=== PATIENT | female | born 1950 | race Caucasian/White ===

== ENCOUNTER → 2018-02-18 14:52 | Outpatient (CLI) | payer MEDICARE, SELFPAY ==
--- NOTE | 2018-02-18 14:59 | XR_ITS ---
XR foot RT min 3V HISTORY: ITS.REASON: foot pain ORDERING PHYSICIAN: Diego López PATIENT AGE: 67 years COMPARISON: None FINDINGS: No fracture or dislocation. No lytic or blastic change. There is normal mineralization.. The joint spaces are well-preserved. There are mild osteoarthritic changes of the first metatarsophalangeal joint. There is normal alignment. 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
== END ==
PROVIDERS: PCP Emergency Medicine; Visit Provider Nurse Practitioner Family
DX: M79.671 Pain in right foot (principal)
CPT/HCPCS: 73630

== ENCOUNTER → 2018-06-01 07:46 | Outpatient (CLI) | payer MEDICARE, SELFPAY ==
[2018-06-01 08:56] LABS: Alanine Aminotransferase 56 U/L (12-78); Albumin Level 3.4 gm/dL (3.4-5.0); Alkaline Phosphatase 111 U/L (46-116); Aspartate Amino Transferase 34 U/L (15-37); Bilirubin,Direct 0.1 mg/dL (0.0-0.2); Bilirubin,Indirect 0.2 mg/dL (0.0-0.9); Bilirubin,Total 0.3 mg/dL (0.2-1.0); Cholesterol 145 mg/dL (140-200); HDL Cholesterol 36 mg/dL (29-89); LDL Cholesterol 86 mg/dL (0-130); Total Protein,Serum 7.2 gm/dL (6.4-8.2); Triglycerides 116 mg/dL (30-200); VLDL Cholesterol 23 mg/dL (0-40)
== END ==
PROVIDERS: Visit Provider Physician Assistant
DX: E78.2 Mixed hyperlipidemia (principal); I10 Essential (primary) hypertension; I25.10 Atherosclerotic heart disease of native coronary artery without angina pectoris
CPT/HCPCS: 36415; 80061; 80076

== ENCOUNTER → 2020-03-13 18:10 | Outpatient (CLI) | payer MEDICARE, SELFPAY | PROVIDERS: PCP Nurse Practitioner Family; Visit Provider Nurse Practitioner Family | DX: Z20.828 Contact with and (suspected) exposure to other viral communicable diseases (principal); U07.1 COVID-19 | CPT/HCPCS: U0003 ==

== ENCOUNTER → 2020-04-11 09:29 | Outpatient (CLI) | payer MEDICARE, SELFPAY ==
[2020-04-11 11:49] LABS: Bilirubin,Unconjugated 0.4 mg/dL (0.0-1.1)
[2020-04-11 11:50] LABS: Alanine Aminotransferase 20 U/L (12-78); Albumin Level 4.2 g/dl (3.5-5.0); Alkaline Phosphatase 102 U/L (38-126); Aspartate Amino Transferase 27 U/L (14-36); Bilirubin,Direct 0.2 mg/dl (0.0-0.4); Bilirubin,Indirect 0.4 mg/dL (0.0-0.9); Bilirubin,Total 0.6 mg/dl (0.2-1.3); Chol/HDL Ratio 3.8 (1-3.5); Cholesterol 158 mg/dl (140-200); HDL Cholesterol 42 mg/dl (40-60); Triglycerides 184 mg/dl (30-150); VLDL Cholesterol 37 mg/dL (0-40)
[2020-04-11 12:01] LABS: Direct LDL Cholesterol 71.27 mg/dL (100-129)
== END ==
PROVIDERS: Visit Provider Internal Medicine
DX: E78.2 Mixed hyperlipidemia (principal); I10 Essential (primary) hypertension; I25.10 Atherosclerotic heart disease of native coronary artery without angina pectoris
CPT/HCPCS: 36415; 80061; 80076

== ENCOUNTER → 2021-01-04 19:16 | Outpatient (CLI) | payer MEDICARE, SELFPAY | PROVIDERS: Visit Provider Nurse Practitioner Family | DX: J02.9 Acute pharyngitis, unspecified (principal); R52 Pain, unspecified; Z20.822 Contact with and (suspected) exposure to COVID-19 | CPT/HCPCS: C9803; U0003; U0005 ==

== ENCOUNTER → 2021-10-01 07:34 | Outpatient (CLI) | payer MEDICARE, SELFPAY ==
[2021-10-01 08:27] LABS: Alanine Aminotransferase 20 U/L (12-78); Albumin Level 3.8 g/dl (3.5-5.0); Alkaline Phosphatase 99 U/L (38-126); Aspartate Amino Transferase 28 U/L (14-36); Bilirubin,Indirect 0.4 mg/dL (0.0-0.9); Bilirubin,Total 0.4 mg/dl (0.2-1.3); Bilirubin,Unconjugated 0.7 mg/dL (0.0-1.1); Chol/HDL Ratio 4.2 (1-3.5); Cholesterol 134 mg/dl (140-200); HDL Cholesterol 32 mg/dl (40-60); Total Protein,Serum 6.8 g/dl (6.3-8.2); Triglycerides 160 mg/dl (30-150); VLDL Cholesterol 32 mg/dL (0-40)
[2021-10-01 08:38] LABS: Direct LDL Cholesterol 61.51 mg/dL (100-129)
== END ==
PROVIDERS: Visit Provider Nurse Practitioner Family
DX: I11.9 Hypertensive heart disease without heart failure (principal); E11.9 Type 2 diabetes mellitus without complications
CPT/HCPCS: 36415; 80061; 80076

== ENCOUNTER → 2022-11-14 08:20 | Outpatient (CLI) | payer MEDICARE, SELFPAY ==
[2022-11-14 08:42] LABS: Basophils # 0.1 K/mm3 (0-0.2); Basophils % 1.1 % (0.1-2.0); Eosinophils # 0.2 K/mm3 (0.0-0.4); Eosinophils % 3.2 % (0.1-12.0); Hematocrit 39.6 % (37.0-47.0); Hemoglobin 13.1 g/dL (12.2-16.2); Lymphocytes # 1.9 K/mm3 (0.7-4.5); Lymphocytes % 32.6 % (10-50); Mean Corpuscular HGB Conc 33.1 g/dL (31.8-35.4); Mean Corpuscular Hemoglobin 28.4 pg (27.0-31.2); Mean Corpuscular Volume 85.9 fl (81-99); Mean Platelet Volume 8.2 fl (7.4-10.4); Monocytes # 0.2 K/mm3 (0.1-1.0); Monocytes % 3.9 % (1.7-9.3); Neutrophils # 3.5 K/mm3 (1.8-7.8); Neutrophils % 59.2 % (37.0-80.0); Platelet Count 245 K/mm3 (142-424); Red Blood Count 4.61 M/mm3 (4.20-5.40); Red Cell Distribution Width 14.4 % (11.5-17.5); White Blood Count 5.8 K/mm3 (4.8-10.8)
[2022-11-14 09:16] LABS: Chloride 105 mmol/L (98-107); Potassium 4.5 mmoL/L (3.5-5.1); Sodium 142 mmol/L (136-145)
[2022-11-14 09:18] LABS: Blood Urea Nitrogen 19 mg/dl (7-17); Estimated Glomerular Filt Rate 44 ml/min (>60); GFR (African American) 54 ML/MIN (>60)
[2022-11-14 09:19] LABS: Alanine Aminotransferase 22 U/L (12-78); Albumin Level 3.8 g/dl (3.5-5.0); Alkaline Phosphatase 111 U/L (38-126); Anion Gap 13.5 mEq/L (5-15); Aspartate Amino Transferase 29 U/L (14-36); Bilirubin,Direct 0.3 mg/dl (0.0-0.4); Bilirubin,Indirect 0.3 mg/dL (0.0-0.9); Bilirubin,Total 0.6 mg/dl (0.2-1.3); Bilirubin,Unconjugated 0.4 mg/dL (0.0-1.1); Calcium 9.5 mg/dl (8.4-10.2); Carbon Dioxide 28 mmol/L (22.0-30.0); Cholesterol 142 mg/dl (140-200); Glucose 94 mg/dl (74-100); Triglycerides 216 mg/dl (30-150); VLDL Cholesterol 43 mg/dL (0-40)
[2022-11-14 09:20] LABS: Chol/HDL Ratio 4.6 (1-3.5); HDL Cholesterol 31 mg/dl (40-60)
[2022-11-14 09:30] LABS: Direct LDL Cholesterol 60.37 mg/dL (100-129)
[2022-11-14 09:36] LABS: Free T4 (Free Thyroxine) 0.85 ng/dl (0.78-2.19)
== END ==
PROVIDERS: PCP Physician Assistant; Visit Provider Physician Assistant
DX: I63.9 Cerebral infarction, unspecified (principal); R06.00 Dyspnea, unspecified; I11.9 Hypertensive heart disease without heart failure; E78.5 Hyperlipidemia, unspecified; I25.10 Atherosclerotic heart disease of native coronary artery without angina pectoris; R94.31 Abnormal electrocardiogram [ECG] [EKG]
CPT/HCPCS: 80048; 80061; 80076; 84439; 84443; 85025

== ENCOUNTER → 2023-03-07 09:14 | Outpatient (CLI) | payer MEDICARE, SELFPAY | LOC: LAB.DROPOF 03-08 09:15 | PROVIDERS: PCP Physician Assistant; Visit Provider Physician Assistant | DX: I10 Essential (primary) hypertension (principal) | CPT/HCPCS: 84443 ==

== ENCOUNTER 2023-06-24 16:49 | Outpatient (CLI) | payer MEDICARE, SELFPAY ==
[2023-06-24 18:28] LABS: Basophils # 0.1 K/mm3 (0-0.2); Basophils % 1.4 % (0.1-2.0); Eosinophils # 0.2 K/mm3 (0.0-0.4); Eosinophils % 2.7 % (0.1-12.0); Hematocrit 39.2 % (37.0-47.0); Hemoglobin 12.7 g/dL (12.2-16.2); Lymphocytes # 1.8 K/mm3 (0.7-4.5); Lymphocytes % 32.3 % (10-50); Mean Corpuscular HGB Conc 32.4 g/dL (31.8-35.4); Mean Corpuscular Hemoglobin 28.8 pg (27.0-31.2); Mean Corpuscular Volume 88.8 fl (81-99); Mean Platelet Volume 10.7 fl (7.4-10.4); Monocytes # 0.3 K/mm3 (0.1-1.0); Monocytes % 5.4 % (1.7-9.3); Neutrophils # 3.1 K/mm3 (1.8-7.8); Neutrophils % 58.1 % (37.0-80.0); Platelet Count 57 K/mm3 (142-424); Red Blood Count 4.42 M/mm3 (4.20-5.40); Red Cell Distribution Width 14.6 % (11.5-17.5); White Blood Count 5.4 K/mm3 (4.8-10.8)
[2023-06-24 18:43] LABS: Alanine Aminotransferase 18 U/L (12-78); Albumin Level 4.1 g/dl (3.5-5.0); Albumin/Globulin Ratio 1.3 (1.1-1.8); Alkaline Phosphatase 99 U/L (38-126); Anion Gap 12.3 mEq/L (5-15); Aspartate Amino Transferase 27 U/L (14-36); Bilirubin,Total 0.7 mg/dl (0.2-1.3); Blood Urea Nitrogen 24 mg/dl (7-17); Calcium 9.4 mg/dl (8.4-10.2); Carbon Dioxide 24 mmol/L (22.0-30.0); Chloride 108 mmol/L (98-107); Chol/HDL Ratio 3.9 (1-3.5); Cholesterol 143 mg/dl (140-200); Estimated Glomerular Filt Rate 40 ml/min (>60); GFR (African American) 49 ML/MIN (>60); Globulin 3.1 g/dL (1.3-3.2); Glucose 89 mg/dl (74-100); HDL Cholesterol 37 mg/dl (40-60); Potassium 4.3 mmoL/L (3.5-5.1); Sodium 140 mmol/L (136-145); Total Protein,Serum 7.2 g/dl (6.3-8.2); Triglycerides 135 mg/dl (30-150); VLDL Cholesterol 27 mg/dL (0-40)
[2023-06-24 19:12] LABS: Thyroid Stimulating Hormone 3.87 uIU/mL (0.465-4.68)
[2023-06-24 19:47] LABS: Direct LDL Cholesterol 73.28 mg/dL (100-129)
== END 2023-06-24 23:59 | disposition home or self-care (01) ==
LOC: LAB.DROPOF 06-25 16:49
PROVIDERS: PCP Physician Assistant; Visit Provider Physician Assistant
DX: E78.2 Mixed hyperlipidemia (principal); E03.9 Hypothyroidism, unspecified
CPT/HCPCS: 80053; 80061; 84443; 85025

== ENCOUNTER 2023-07-07 08:22 | Outpatient (CLI) | payer MEDICARE, SELFPAY ==
[2023-07-07 08:48] LABS: Basophils # 0.1 K/mm3 (0-0.2); Basophils % 1.1 % (0.1-2.0); Eosinophils # 0.2 K/mm3 (0.0-0.4); Eosinophils % 3.3 % (0.1-12.0); Hematocrit 37.6 % (37.0-47.0); Hemoglobin 12.6 g/dL (12.2-16.2); Lymphocytes # 1.7 K/mm3 (0.7-4.5); Lymphocytes % 31.8 % (10-50); Mean Corpuscular HGB Conc 33.4 g/dL (31.8-35.4); Mean Corpuscular Hemoglobin 29.2 pg (27.0-31.2); Mean Corpuscular Volume 87.4 fl (81-99); Mean Platelet Volume 9.5 fl (7.4-10.4); Monocytes # 0.2 K/mm3 (0.1-1.0); Neutrophils # 3.2 K/mm3 (1.8-7.8); Neutrophils % 59.8 % (37.0-80.0); Platelet Count 63 K/mm3 (142-424); Red Blood Count 4.31 M/mm3 (4.20-5.40); Red Cell Distribution Width 14.9 % (11.5-17.5); White Blood Count 5.4 K/mm3 (4.8-10.8)
[2023-07-09 08:29] LABS: Peripheral Smear Review Scanned Result
== END 2023-07-07 23:59 | disposition home or self-care (01) ==
LOC: LAB 08:23
PROVIDERS: PCP Physician Assistant; Visit Provider Physician Assistant
DX: D69.6 Thrombocytopenia, unspecified (principal); R89.9 Unspecified abnormal finding in specimens from other organs, systems and tissues
CPT/HCPCS: 36415; 85025

== ENCOUNTER 2023-11-03 09:20 | Outpatient (CLI) | payer MEDICARE, SELFPAY ==
[2023-11-03 10:07] LABS: Basophils % 0.6 % (0.1-2.0); Eosinophils # 0.2 K/mm3 (0.0-0.4); Eosinophils % 3.3 % (0.1-12.0); Hematocrit 39.2 % (37.0-47.0); Hemoglobin 12.6 g/dL (12.2-16.2); Lymphocytes # 1.5 K/mm3 (0.7-4.5); Lymphocytes % 29.1 % (10-50); Mean Corpuscular Hemoglobin 28.5 pg (27.0-31.2); Mean Corpuscular Volume 88.9 fl (81-99); Mean Platelet Volume 8.1 fl (7.4-10.4); Monocytes # 0.2 K/mm3 (0.1-1.0); Monocytes % 3.7 % (1.7-9.3); Neutrophils # 3.2 K/mm3 (1.8-7.8); Neutrophils % 63.3 % (37.0-80.0); Platelet Count 107 K/mm3 (142-424); Red Blood Count 4.41 M/mm3 (4.20-5.40); Red Cell Distribution Width 15.2 % (11.5-17.5); White Blood Count 5.1 K/mm3 (4.8-10.8)
[2023-11-03 10:50] LABS: Albumin Level 3.8 g/dl (3.5-5.0); Chloride 108 mmol/L (98-107); Free T4 (Free Thyroxine) 1.38 ng/dl (0.78-2.19); Potassium 4.2 mmoL/L (3.5-5.1); Sodium 138 mmol/L (136-145)
[2023-11-03 10:53] LABS: Alanine Aminotransferase 19 U/L (12-78); Alkaline Phosphatase 108 U/L (38-126); Anion Gap 10.2 mEq/L (5-15); Aspartate Amino Transferase 26 U/L (14-36); Bilirubin,Direct 0.4 mg/dl (0.0-0.4); Bilirubin,Indirect 0.3 mg/dL (0.0-0.9); Bilirubin,Total 0.7 mg/dl (0.2-1.3); Bilirubin,Unconjugated 0.4 mg/dL (0.0-1.1); Blood Urea Nitrogen 19 mg/dl (7-17); Calcium 8.7 mg/dl (8.4-10.2); Carbon Dioxide 24 mmol/L (22.0-30.0); Cholesterol 135 mg/dl (140-200); Estimated Glomerular Filt Rate 40 ml/min (>60); GFR (African American) 49 ML/MIN (>60); Glucose 93 mg/dl (74-100); Triglycerides 183 mg/dl (30-150); VLDL Cholesterol 37 mg/dL (0-40)
[2023-11-03 10:54] LABS: Chol/HDL Ratio 4.2 (1-3.5); HDL Cholesterol 32 mg/dl (40-60); Magnesium 1.9 mg/dl (1.6-2.3)
[2023-11-03 11:04] LABS: Thyroid Stimulating Hormone 3.23 uIU/mL (0.465-4.68)
[2023-11-03 11:05] LABS: Direct LDL Cholesterol 59.09 mg/dL (100-129)
== END 2023-11-03 23:59 | disposition home or self-care (01) ==
LOC: LAB 09:21
PROVIDERS: PCP Physician Assistant; Visit Provider Physician Assistant
DX: I25.10 Atherosclerotic heart disease of native coronary artery without angina pectoris (principal); E78.2 Mixed hyperlipidemia; R94.31 Abnormal electrocardiogram [ECG] [EKG]; R42 Dizziness and giddiness; E03.9 Hypothyroidism, unspecified; I11.9 Hypertensive heart disease without heart failure
CPT/HCPCS: 36415; 80048; 80061; 80076; 83735; 84439; 84443; 85025

== ENCOUNTER 2023-11-06 10:09 | Outpatient (CLI) | payer MEDICARE, SELFPAY ==
[2023-11-08 10:20] LABS: Peripheral Smear Review Scanned Result
== END 2023-11-06 23:59 | disposition home or self-care (01) ==
LOC: LAB 10:10
PROVIDERS: PCP Physician Assistant; Visit Provider Internal Medicine Medical Oncology
DX: D69.6 Thrombocytopenia, unspecified (principal)
CPT/HCPCS: 36415

== ENCOUNTER 2023-12-30 16:33 | Outpatient (CLI) | payer MEDICARE, SELFPAY ==
[2024-01-01 11:17] LABS: Albumin, U 3.5 ug/mL (Not Estab.); Albumin/Creatinine Ratio 4 mg/g creat (0-29); Creatinine, Urine 93.5 mg/dL (Not Estab.)
[2024-01-02 15:12] LABS: Albumin, U 15.3 % (.); Alpha-1-Globulin, U 2.6 % (.); Alpha-2-Globulin, U 16.1 % (.); Beta Globulin, U 32.1 % (.); Creatinine, Urine 95.8 mg/dL (Not Estab.); Gamma Globulin, U 33.9 % (.); M-Spike, % Not Observed % (Not Observed); Protein,Total,Urine 19.9 mg/dL (Not Estab.)
[2024-02-06 09:32] LABS: PDF: SCANNED IMAGE
== END 2023-12-30 23:59 | disposition home or self-care (01) ==
LOC: LAB.DROPOF 16:33
PROVIDERS: PCP Internal Medicine; Visit Provider Internal Medicine
DX: N18.30 Chronic kidney disease, stage 3 unspecified (principal)
CPT/HCPCS: 82043; 82570; 84166

== ENCOUNTER 2024-01-12 10:32 | Outpatient (CLI) | payer MEDICARE, SELFPAY ==
--- NOTE | 2024-01-12 10:35 | XR_ITS ---
PROCEDURE INFORMATION: Exam: XR Cervical Spine Exam date and time: 01/12/2024 10:38 AM Age: 73 years old Clinical indication: Neck pain; Additional info: Neck/shoulder pain TECHNIQUE: Imaging protocol: Radiologic exam of the cervical spine. Views: 2 or 3 views. COMPARISON: No relevant prior studies available. FINDINGS: Bones/joints: Vertebral alignment is maintained. There is preservation of vertebral body heights. No visible fracture. Interpedicular distances are maintained. Odontoid process is intact. Atlantoaxial interval is maintained. Cervicothoracic junction is obscured by structure overlap. Soft tissues: Unremarkable. IMPRESSION: No acute fracture. No traumatic subluxation.
== END 2024-01-12 23:59 | disposition home or self-care (01) ==
LOC: RAD 10:32
PROVIDERS: PCP Internal Medicine; Visit Provider Internal Medicine
DX: M25.511 Pain in right shoulder (principal); M25.512 Pain in left shoulder; M54.2 Cervicalgia
CPT/HCPCS: 72040

== ENCOUNTER 2024-02-10 10:51 | Outpatient (CLI) | payer MEDICARE, SELFPAY ==
[2024-02-10 11:18] LABS: Basophils % 0.6 % (0.1-2.0); Eosinophils # 0.1 K/mm3 (0.0-0.4); Eosinophils % 2.3 % (0.1-12.0); Hematocrit 34.1 % (37.0-47.0); Hemoglobin 11.8 g/dL (12.2-16.2); Lymphocytes # 1.2 K/mm3 (0.7-4.5); Lymphocytes % 28.8 % (10-50); Mean Corpuscular HGB Conc 34.7 g/dL (31.8-35.4); Mean Corpuscular Hemoglobin 28.3 pg (27.0-31.2); Mean Corpuscular Volume 81.6 fl (81-99); Mean Platelet Volume 8.6 fl (7.4-10.4); Monocytes # 0.1 K/mm3 (0.1-1.0); Monocytes % 3.1 % (1.7-9.3); Neutrophils # 2.8 K/mm3 (1.8-7.8); Neutrophils % 65.2 % (37.0-80.0); Platelet Count 77 K/mm3 (142-424); Red Blood Count 4.18 M/mm3 (4.20-5.40); Red Cell Distribution Width 15.1 % (11.5-17.5); White Blood Count 4.3 K/mm3 (4.8-10.8)
== END 2024-02-10 23:59 | disposition home or self-care (01) ==
LOC: LAB 10:52
PROVIDERS: PCP Internal Medicine; Visit Provider Internal Medicine Medical Oncology
DX: D69.6 Thrombocytopenia, unspecified (principal)
CPT/HCPCS: 36415; 85025

== ENCOUNTER 2024-02-16 07:06 | Outpatient (CLI) | payer MEDICARE, SELFPAY ==
--- NOTE | 2024-02-16 07:07 | CT_ITS ---
FINAL REPORT CLINICAL HISTORY: .BONE MARROW BIOPSY FINDINGS: CT GUIDED BONE MARROW ASPIRATION AND CORE BIOPSY. HISTORY: Leukopenia. ATTENDING PHYSICIAN: Dr. Addison PHYSICIAN SPD MANAGER: Jaquan Diaz PA-C PROCEDURE: After informed consent was obtained and a timeout was performed, the patient was prepped and draped in usual sterile fashion over the left pelvis. Utilizing local anesthesia and sterile technique with a coaxial drill system, access to left iliac bone was obtained under direct CT guidance. Aspirate was obtained. In addition, a large core of marrow was obtained. The patient received moderate procedural sedation. The patient tolerated the procedure well and left the department in good condition. PROCEDURAL SEDATION: 2 mg of IV Versed and 50 mcg of Fentanyl were administered. Continuous vital sign monitoring was used. An RN was present during the sedation process. Overall sedation time was 30 minutes. IMPRESSION: Status post CT guided bone marrow aspiration and core biopsy as above. Films reviewed , interpreted and dictated by Dr. Addison. Transcribed by Jaquan Diaz PA-C. Reviewed, Interpreted and Dictated by Arpit Addison III, MD Transcribed by HARVEY Johnson Authenticated and [facility]
[2024-02-16 07:41] VITALS: BMI 28.5
[2024-02-16 07:52] VITALS: BP 142/99; PULSE 63; RESP 17; TEMP 36.6; O2SAT 97
[2024-02-16 08:03] LABS: Basophils % 0.7 % (0.1-2.0); Eosinophils # 0.1 K/mm3 (0.0-0.4); Eosinophils % 2.6 % (0.1-12.0); Hematocrit 34.9 % (37.0-47.0); Hemoglobin 11.7 g/dL (12.2-16.2); Lymphocytes # 1.2 K/mm3 (0.7-4.5); Lymphocytes % 25.5 % (10-50); Mean Corpuscular HGB Conc 33.5 g/dL (31.8-35.4); Mean Corpuscular Hemoglobin 27.9 pg (27.0-31.2); Mean Corpuscular Volume 83.3 fl (81-99); Mean Platelet Volume 8.4 fl (7.4-10.4); Monocytes # 0.2 K/mm3 (0.1-1.0); Monocytes % 3.5 % (1.7-9.3); Neutrophils # 3.3 K/mm3 (1.8-7.8); Neutrophils % 67.7 % (37.0-80.0); Platelet Count 72 K/mm3 (142-424); Red Blood Count 4.19 M/mm3 (4.20-5.40); Red Cell Distribution Width 14.9 % (11.5-17.5); White Blood Count 4.8 K/mm3 (4.8-10.8)
[2024-02-16 08:39] LABS: INR 0.97 (0.9-1.1); Prothrombin Time 10.9 seconds (10.1-12.5)
[2024-02-16] MEDS: HEPARIN SODIUM 5,000 UNIT/ML VIAL 5000 UNIT (09:10)
[2024-02-16] MEDS: LIDOCAINE 1% 20ML MDV 20 ML (09:10)
[2024-02-16 09:15] VITALS: BP 117/68; PULSE 68; RESP 16; O2SAT 100
[2024-02-16 09:30] VITALS: BP 114/86; PULSE 62; RESP 16; O2SAT 96
[2024-02-16 09:45] VITALS: BP 115/78; PULSE 64; RESP 16; O2SAT 96
[2024-02-16 10:00] VITALS: BP 120/72; PULSE 59; RESP 16; O2SAT 95
[2024-02-16 10:15] VITALS: BP 121/58; PULSE 56; RESP 16; O2SAT 96
== END 2024-02-16 10:15 | disposition home or self-care (01) ==
PROVIDERS: PCP Internal Medicine; Visit Provider Internal Medicine Medical Oncology
DX: D72.819 Decreased white blood cell count, unspecified (principal); D69.6 Thrombocytopenia, unspecified
CPT/HCPCS: 38221; 77012; 85025; 85097; 85610; 88184; 88185; 88305; 88311; 88313; 88341; J1644; J2250; J3010

== ENCOUNTER 2024-02-20 11:03 | Outpatient (CLI) | payer MEDICARE, SELFPAY ==
--- NOTE | 2024-02-20 11:09 | XR_ITS ---
FINAL REPORT CLINICAL HISTORY: Bilateral Hand pain FINDINGS: Right hand Three views were obtained. There is no fracture or dislocation. There are mild and moderate degenerative changes, worst at the first carpometacarpal joint. 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 No soft tissue abnormality is identified. IMPRESSION: Degenerative changes as above. Reviewed, Interpreted and Dictated by Arpit Addison III, MD Transcribed by Kate Bruce Authenticated and [facility]
--- NOTE | 2024-02-20 11:09 | XR_ITS ---
FINAL REPORT CLINICAL HISTORY: Bilateral hand pain/swelling FINDINGS: Left hand Three views were obtained. There is no fracture or dislocation. There are mild degenerative changes. 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 No soft tissue abnormality is identified. IMPRESSION: Degenerative changes as above. Reviewed, Interpreted and Dictated by Arpit Addison III, MD Transcribed by Kate Bruce Authenticated and [facility]
== END 2024-02-20 23:59 | disposition home or self-care (01) ==
LOC: RAD 11:04
PROVIDERS: PCP Internal Medicine; Visit Provider Internal Medicine
DX: M25.541 Pain in joints of right hand (principal); M25.542 Pain in joints of left hand
CPT/HCPCS: 73120

== ENCOUNTER 2024-02-27 07:32 | Emergency (ER) | payer MEDICARE, SELFPAY ==
[2024-02-27 07:33] VITALS: BP 169/95; PULSE 75; RESP 18; TEMP 36.7; O2SAT 99; BMI 28.5
[2024-02-27 07:37] VITALS: BP 169/95; PULSE 79; O2SAT 99
--- NOTE | 2024-02-27 07:39 | PC.NURSE ---
dr rothman at bedside
[2024-02-27] MEDS: ACETAMINOPHEN 1,000MG/100ML VIAL 1000 MG IV (07:57)
--- NOTE | 2024-02-27 07:57 | ED_ITS ---
Discharge Plan Disposition Patient Disposition: Home, Self-Care Chief Complaint: PAIN Prescriptions Prescriptions: No Action aspirin [Adult Low Dose Aspirin] 81 mg tablet,delayed release (DR/EC) 81 mg PO ONCE gabapentin 100 mg capsule 200 mg PO BID Qty: 120 2RF bisoprolol fumarate 5 mg tablet See Rx Instructions .ROUTE .COMPLEX Qty: 45 4RF Dose Instruction: Take 1/2 (one-half) tablet by mouth once daily Rx Instructions: Take 1/2 (one-half) tablet by mouth once daily atorvastatin 20 mg tablet See Rx Instructions .ROUTE .COMPLEX Qty: 90 4RF Dose Instruction: Take 1 tablet by mouth once daily Rx Instructions: Take 1 tablet by mouth once daily losartan 100 mg tablet See Rx Instructions .ROUTE .COMPLEX Qty: 90 3RF Dose Instruction: Take 1 tablet by mouth once daily Rx Instructions: Take 1 tablet by mouth once daily levothyroxine 88 mcg tablet See Rx Instructions .ROUTE .COMPLEX Qty: 90 0RF Dose Instruction: Take 1 tablet by mouth once daily Rx Instructions: Take 1 tablet by mouth once daily Referrals Follow up/Referrals: Miguel Wallace DO [Primary Care Provider] - See instructions Activity Restrictions/Add. Instructions Additional Instructions/Restrictions: Follow-up with Dr. Wallace regarding this visit to the emergency department and rheumatology labs. Prednisone each morning for 5 days. Be sure to stay plenty hydrated and do not take before bed. Call your family doctor to establish care for this visit to the emergency department and schedule follow-up within 48 hours to ensure improvement. If you have any worsening of your condition or any other concerning signs or symptoms, return to the emergency department or your primary care doctor for further evaluation. Clinical Impressions Clinical Impression: Inflammatory polyarthropathy Print Language Print Language: Guyanese Discharge ED Provider: Alonso Paul General Adult HPI General Chief complaint: PAIN Stated complaint: pain Time Seen by Provider: 02/27/24 07:35 Mode of Arrival: Ambulatory Limitations: No Limitations Description of Symptoms (Recalled from ER Triage Doc. by RN): PT C/O PAIN IN NECK, ARMS, HANDS AND LEGS FOR A COUPLE OF MONTHS HAS SEEN PCP, CURRENTLY ON GABPENTIN WITHOUT RELIEF. NO INJURY History of Present Illness HPI narrative: Please note that above description of symptoms, in this electronic medical record under categorization of recalled from ER triage doctor by RN are reflective of an initial nursing assessment, however, is not reflective of my full history and physical exam that was personally taken and clarified. Consequentially, this preceding description of symptoms, which may include the patient's categorized chief complaint in the EMR, do not reflect my personal clinical impression, and the ultimate description of history of present illness and patient stated complaints should be deferred to this section of the note. Unless stated otherwise or congruent with this section of the note, additional signs, symptoms, or incongruence should be interpreted as inaccurate with my clinical impression. Related Data Home Medications ?Medication ?Instructions ?Recorded ?Confirmed aspirin 81 mg tablet,delayed 81 mg PO ONCE 04/10/17 02/20/24 release (Adult Low Dose Aspirin) Previous Rx's ?Medication ?Instructions ?Recorded bisoprolol fumarate 5 mg tablet See Rx Instructions .Route 03/05/23 .COMPLEX #45 tabs atorvastatin 20 mg tablet See Rx Instructions .Route 04/02/23 .COMPLEX #90 tabs losartan 100 mg tablet See Rx Instructions .Route 09/04/23 .COMPLEX #90 tabs levothyroxine 88 mcg tablet See Rx Instructions .Route 12/11/23 .COMPLEX #90 tabs gabapentin 100 mg capsule 200 mg (2 x 100 mg) PO BID #120 02/20/24 caps Allergies Allergy/AdvReac Type Severity Reaction Status Date / Time codeine (CODEINE) Allergy Mild NA-NAUSEA/V Verified 02/20/24 10:10 OMITING PFSH PFSH Disclaimer: The information contained in this section may have been updated after the patient was seen, as this information can be updated by other users. Medical History Past heart attack Skin lesion of upper extremity Thrombocytopenia Surgical History H/O tubal ligation History of right heart catheterization Family History Other Family history of cancer Family history of stroke Social History Smoking Status: Never smoker alcohol intake: never substance use type: denies use current occupational status: retired Travel in the last 8 weeks: Inside the [place] Have you lived/traveled outside [place] in past 30 days?: No Contact w/someone who lives/traveled outside US past 30 days?: No Exposure to someone with infectious disease in past 14 days?: No Do you have a fever (greater than 100.4 F or 38 C)?: No Have you tested positive for COVID-19: No Exposed to someone with COVID-19 in past 14 days?: No Do you have a sore throat?: No Do you have a cough?: No Do you have any weakness?: No Do you have any diarrhea?: No Are you experiencing any unusual bleeding?: No Do you have any muscle aches/pain?: No Do you have any abdominal pain?: No Are you experiencing loss of taste or smell?: No Other Medical History Have you received the Flu Vaccine for this season: No Have you received the Pneumonia Vaccine: Yes ROS Obtained: Yes All systems reviewed & no additional complaints except as documented Physical Exam General General appearance: alert Head Head exam: atraumatic and normocephalic Eye Eye exam: Present normal appearance, PERRL and EOMI Neck Neck exam: Present normal inspection, full ROM and trachea midline; Absent tenderness Respiratory Respiratory exam: Present normal lung sounds bilaterally; Absent respiratory distress, wheezes, stridor, accessory muscle use or prolonged expiratory phase Cardiovascular Cardiovascular exam: Present other (Pulses equal symmetric in upper and lower extremities) Abdominal Exam Abdominal exam: Present soft; Absent distention, tenderness or pulsatile mass Extremities Exam Extremities exam: Present tenderness (Mild diffuse tenderness. Full range of motion, but tender at supination of bilateral wrists, flexion and extension of digits. Bilateral MCP swelling with degenerative change. Slight ulnar deviation of digits.); Absent edema Neurological Exam Neurological exam: Present alert, oriented X3 and CN II-XII intact; Absent motor sensory deficit Skin Skin exam: Present warm and dry; Absent diaphoresis or erythema Medical Decision Making Medical Records Medical records reviewed: Yes I reviewed the patient's medical records. Screening: Per USPSTF and CDC recommendations, given the prevalence of disease in our region, it is our hospital?s policy to screen for HIV and viral Hepatitis for all patients aged 18 and over and those with ongoing risk factors. Dominik Inquiry Pt receiving controlled substance: No Dominik was queried for this patient: No Vital Signs: 02/27/24 07:33 02/27/24 07:37 02/27/24 08:01 Temperature 98.0 F Temperature Source Oral Pulse Rate 79 77 Pulse Rate [Radial] 75 Respiratory Rate 18 Blood Pressure 169/95 H 136/88 Blood Pressure [Right Arm] 169/95 H Blood Pressure Mean 119 104 Blood Pressure Mean [Right Arm] 119 Blood Pressure Source [Right Arm] Automatic Cuff Blood Pressure Position [Right Arm] Sitting 02 Sat by Pulse Oximetry 99 99 98 Oxygen Delivery Method Room Air Room Air Room Air 02/27/24 08:30 Temperature Temperature Source Pulse Rate 68 Pulse Rate [Radial] Respiratory Rate Blood Pressure 134/89 Blood Pressure [Right Arm] Blood Pressure Mean 104 Blood Pressure Mean [Right Arm] Blood Pressure Source [Right Arm] Blood Pressure Position [Right Arm] 02 Sat by Pulse Oximetry 96 Oxygen Delivery Method Room Air Lab Data Lab Results 02/27/24 07:52: WBC 3.9 L, RBC 4.07 L, Hgb 11.2 L, Hct 33.5 L, MCV 82.3, MCH 27.5, MCHC 33.4, RDW 13.9, Plt Count 103 L, MPV 10.0, Neut % (Auto) 63.2, Lymph % (Auto) 29.4, [place] % (Auto) 3.0, Eos % (Auto) 3.3, Baso % (Auto) 0.3, Neut # (Auto) 2.5, Lymph # (Auto) 1.2, [place] # (Auto) 0.1, Eos # (Auto) 0.1, Baso # (Auto) 0.0, Sodium 134 L, Potassium 4.3, Chloride 109 H, Carbon Dioxide 24, Anion Gap 5.3, BUN 24 H, Creatinine 1.30 H, Estimated Creat Clear 50, Estimated GFR 40 L, Est GFR ( Amer) 49 L, Glucose 97, Calcium 8.5, Phosphorus 3.4, Magnesium 2.0, Total Bilirubin 0.8, AST 34, ALT 17, Alkaline Phosphatase 101, T otal Creatine Kinase 137 H, C-Reactive Protein 38.1 H, Total Protein 7.1, Albumin 3.7, Globulin 3.4 H, Albumin/Globulin Ratio 1.1 02/27/24 07:52 02/27/24 07:52 Orders (Tests/Meds): ED MEDICATIONS Discontinued Medications Generic Name Dose Route Start Last Admin Trade Name Freq PRN Reason Stop Dose Admin Acetaminophen 1,000 mg 02/27/24 07:50 02/27/24 07:57 Acetaminophen 1,000mg/100ml Vial IV 02/27/24 07:51 1,000 mg ONCE ONE Administration ORDERS Category Date Time Status CBC w/Auto Diff [Complete Blood Count Auto Diff] Stat Lab 02/27/24 07:52 Results CK [Creatine Kinase] Stat Lab 02/27/24 07:52 Completed CMP [Comprehensive Metabolic Panel] Stat Lab 02/27/24 07:52 Completed CRP [C-Reactive Protein] Stat Lab 02/27/24 07:52 Completed ESR [Erythrocyte Sedimentation Rate] Stat Lab 02/27/24 07:52 Results HIV Combo Stat Lab 02/27/24 07:52 Received Hep C Ab with Reflex to RNA Stat Lab 02/27/24 07:52 Received MAG [Magnesium] Stat Lab 02/27/24 07:52 Completed PHOS [Phosphorous] Stat Lab 02/27/24 07:52 Completed RF Isotypes,IgM,IgA,IgG Stat Lab 02/27/24 07:52 Received Medical Decision Narrative: 73-year-old female history of hypertension, CKD, CAD presenting with pain all over. Patient states that she has been having this pain for about 2 months. Has followed up with her PCP, still in pain, so came here. Patient has recently had images and labs done with PCP which did not show anything, per her. States that pain is worse at night and into the morning, better after she is up and moving around. Primarily hurting in wrists, hands, knees, ankles, and feet. Denies new neck or back pain, bowel or bladder dysfunction, weakness, numbness, tingling, or any neurologic deficits. No fevers or chills, no weight loss unintended, no night sweats, etc. History was obtained via conversation with patient and chart review. On arrival, patient hemodynamically stable, alert, oriented x4, appropriate, GCS 15, moving all extremities spontaneously, pupils equal and reactive to light. Full physical exam performed and significant for Mild diffuse tenderness. Full range of motion, but tender at supination of bilateral wrists, flexion and extension of digits. Bilateral MCP swelling with degenerative change. Slight ulnar deviation of digits. No muscular body tenderness. No red, hot, swollen joints, all symmetric polyarthropathy including generally the smaller joints. Wrists, MCPs, knees, ankles, MTPs. Differential includes degenerative osteoarthritis, inflammatory versus autoimmune arthritis, metabolic abnormality, endocrinologic abnormality, less likely to be cervical radiculopathy versus myelopathy, degenerative disc disease, septic joint, among others. Patient placed on continuous cardiac monitoring and continuous pulse ox with initial blood pressure 169/95, heart rate 75, saturation 99% on room air. Patient was given 1000 mg IV acetaminophen for symptomatic management, prior to kidney function results. Workup independently interpreted and significant for mild leukopenia with no relative cytopenias. Stable thrombocytopenia and anemia. Chemistry nonactionable, CK negative, magnesium negative. CRP moderately elevated. On independent interpretation of imaging, patient has what appears to be mild subluxation and degenerative changes at MCPs consistent with early rheumatoid arthritis. See radiology read for full review of final results. On reevaluation, patient resting comfortably. Given patient presentation, workup, history, this most likely represents rheumatoid arthritis versus other autoimmune versus inflammatory arthropathy. Given that it is worse in the morning, better throughout the day, then worse at night after she lays down again. Also she has changes on her x-rays consistent with mild subluxation of multiple MCPs, degenerative changes at MCPs primarily with mild ulnar deviation on physical exam. Rheumatoid factor was sent, but is send now. This was relayed to patient. I feel 10 to 20 mg of prednisone for 5-day burst will help significantly until she follows up with PCP and hopefully by that time the send out labs are back. Patient agreeable to this plan. Will likely need rheumatology follow-up. Because patient at baseline without signs or symptoms of clinical decompensation, deemed appropriate for discharge. Results were relayed to patient who voiced understanding and were agreeable to outpatient management and follow up. I discussed my clinical impression with patient and answered all questions. At this time, the evidence for any other entities in the differential is insufficient to warrant any further testing or ED observation. This was explained as well. Advisory was given that persistent or worsening symptoms require further evaluation. I confirmed the understanding of this discussion. Gathering Machine Feeder disclaimer Much of this encounter note is an electronic photography professor spoken language to printed text. Electronic photography professor of the spoken language may permit errors. Although I have reviewed the note, some errors may still exist. Critical Care Critical Care Time Critical Care Time: No
[2024-02-27 08:01] VITALS: BP 136/88; PULSE 77; O2SAT 98
[2024-02-27 08:14] LABS: Albumin Level 3.7 g/dl (3.5-5.0); Chloride 109 mmol/L (98-107); Sodium 134 mmol/L (136-145)
[2024-02-27 08:15] LABS: Potassium 4.3 mmoL/L (3.5-5.1)
[2024-02-27 08:17] LABS: Alanine Aminotransferase 17 U/L (12-78); Albumin/Globulin Ratio 1.1 (1.1-1.8); Alkaline Phosphatase 101 U/L (38-126); Anion Gap 5.3 mEq/L (5-15); Aspartate Amino Transferase 34 U/L (14-36); Basophils % 0.3 % (0.1-2.0); Bilirubin,Total 0.8 mg/dl (0.2-1.3); Blood Urea Nitrogen 24 mg/dl (7-17); Calcium 8.5 mg/dl (8.4-10.2); Carbon Dioxide 24 mmol/L (22.0-30.0); Creatine Kinase 137 U/L (30-135); Creatinine Clearance Estimated 50 mL/min (50-200); Eosinophils # 0.1 K/mm3 (0.0-0.4); Eosinophils % 3.3 % (0.1-12.0); Estimated Glomerular Filt Rate 40 ml/min (>60); GFR (African American) 49 ML/MIN (>60); Globulin 3.4 g/dL (1.3-3.2); Glucose 97 mg/dl (74-100); Hematocrit 33.5 % (37.0-47.0); Hemoglobin 11.2 g/dL (12.2-16.2); Lymphocytes # 1.2 K/mm3 (0.7-4.5); Lymphocytes % 29.4 % (10-50); Mean Corpuscular HGB Conc 33.4 g/dL (31.8-35.4); Mean Corpuscular Hemoglobin 27.5 pg (27.0-31.2); Mean Corpuscular Volume 82.3 fl (81-99); Monocytes # 0.1 K/mm3 (0.1-1.0); Neutrophils # 2.5 K/mm3 (1.8-7.8); Neutrophils % 63.2 % (37.0-80.0); Phosphorous 3.4 mg/dl (2.5-4.5); Platelet Count 103 K/mm3 (142-424); Red Blood Count 4.07 M/mm3 (4.20-5.40); Red Cell Distribution Width 13.9 % (11.5-17.5); Total Protein,Serum 7.1 g/dl (6.3-8.2); White Blood Count 3.9 K/mm3 (4.8-10.8)
[2024-02-27 08:23] LABS: C-Reactive Protein 38.1 mg/L (0-4)
[2024-02-27 08:30] VITALS: BP 134/89; PULSE 68; O2SAT 96
--- NOTE | 2024-02-27 08:46 | PC.NURSE ---
DR ARIZMENDI AT BEDSIDE TO UPDATE PT AND FAMILY
[2024-02-27 09:08] VITALS: BP 141/98; PULSE 72; RESP 18; TEMP 36.7; O2SAT 98
[2024-02-27 09:31] LABS: Erythrocyte Sedimentation Rate 39 mm/hr (0-30)
[2024-02-27 10:03] LABS: HIV Combo NEGATIVE (Negative)
[2024-02-28 08:14] LABS: HCV Ab Non Reactive (Non Reactive)
[2024-03-05 01:07] LABS: RF, IgA by EIA (RDL) 9 U (<7); RF, IgG by EIA (RDL) < 7 U (<7); RF, IgM by EIA (RDL) 21 U (<7)
== END 2024-02-27 09:08 | disposition home or self-care (01) ==
PROVIDERS: Emergency Provider Emergency Medicine; PCP Internal Medicine
DX: M06.4 Inflammatory polyarthropathy (principal); M54.2 Cervicalgia; M79.601 Pain in right arm; M79.602 Pain in left arm; M79.641 Pain in right hand; M79.642 Pain in left hand; M79.604 Pain in right leg; M79.605 Pain in left leg
CPT/HCPCS: 80053; 82550; 83735; 84100; 85025; 85651; 86140; 86431; 86803; 87389; 96374; 99283; J0131

== ENCOUNTER 2024-05-17 08:29 | Outpatient (CLI) | payer MEDICARE, SELFPAY ==
[2024-05-17 08:56] LABS: Basophils % 0.3 % (0.1-2.0); Eosinophils % 1.3 % (0.1-12.0); Hematocrit 32.4 % (37.0-47.0); Hemoglobin 10.7 g/dL (12.2-16.2); Lymphocytes # 0.9 K/mm3 (0.7-4.5); Lymphocytes % 30.3 % (10-50); Mean Corpuscular Hemoglobin 26.8 pg (27.0-31.2); Monocytes # 0.2 K/mm3 (0.1-1.0); Monocytes % 4.8 % (1.7-9.3); Neutrophils # 1.9 K/mm3 (1.8-7.8); Neutrophils % 61.7 % (37.0-80.0); Platelet Count 115 K/mm3 (142-424); Red Cell Distribution Width 14.8 % (11.5-17.5); White Blood Count 3.1 K/mm3 (4.8-10.8)
[2024-05-17 09:37] LABS: Albumin Level 3.6 g/dl (3.5-5.0); Chloride 103 mmol/L (98-107); Sodium 136 mmol/L (136-145)
[2024-05-17 09:38] LABS: Potassium 3.6 mmoL/L (3.5-5.1)
[2024-05-17 09:40] LABS: Alanine Aminotransferase 16 U/L (12-78); Anion Gap 8.6 mEq/L (5-15); Aspartate Amino Transferase 29 U/L (14-36); Bilirubin,Indirect 0.6 mg/dL (0.0-0.9); Bilirubin,Total 0.6 mg/dl (0.2-1.3); Bilirubin,Unconjugated 0.6 mg/dL (0.0-1.1); Blood Urea Nitrogen 26 mg/dl (7-17); Carbon Dioxide 28 mmol/L (22.0-30.0); Cholesterol 107 mg/dl (140-200); Estimated Glomerular Filt Rate 37 ml/min (>60); GFR (African American) 45 ML/MIN (>60); Total Protein,Serum 6.5 g/dl (6.3-8.2); Triglycerides 157 mg/dl (30-150); VLDL Cholesterol 31 mg/dL (0-40)
[2024-05-17 09:41] LABS: Alkaline Phosphatase 80 U/L (38-126); Calcium 8.5 mg/dl (8.4-10.2); Chol/HDL Ratio 4.5 (1-3.5); Glucose 87 mg/dl (74-100); HDL Cholesterol 24 mg/dl (40-60); Magnesium 1.9 mg/dl (1.6-2.3)
[2024-05-17 09:52] LABS: Direct LDL Cholesterol 49.22 mg/dL (100-129)
[2024-05-17 09:58] LABS: Free T4 (Free Thyroxine) 1.59 ng/dl (0.78-2.19)
== END 2024-05-17 23:59 | disposition home or self-care (01) ==
LOC: LAB 08:30
PROVIDERS: PCP Internal Medicine; Visit Provider Physician Assistant
DX: I13.0 Hypertensive heart and chronic kidney disease with heart failure and stage 1 through stage 4 chronic kidney disease, or unspecified chronic kidney disease (principal); N18.30 Chronic kidney disease, stage 3 unspecified; E78.2 Mixed hyperlipidemia; I25.10 Atherosclerotic heart disease of native coronary artery without angina pectoris
CPT/HCPCS: 36415; 80048; 80061; 80076; 83735; 84439; 84443; 85025

== ENCOUNTER 2024-06-10 09:56 | Outpatient (CLI) | payer MEDICARE, SELFPAY ==
[2024-06-10 10:31] LABS: Basophils % 0.3 % (0.1-2.0); Eosinophils # 0.1 K/mm3 (0.0-0.4); Eosinophils % 1.3 % (0.1-12.0); Hematocrit 30.3 % (37.0-47.0); Hemoglobin 9.9 g/dL (12.2-16.2); Mean Corpuscular HGB Conc 32.7 g/dL (31.8-35.4); Mean Corpuscular Hemoglobin 26.3 pg (27.0-31.2); Mean Corpuscular Volume 80.6 fl (81-99); Mean Platelet Volume 10.3 fl (7.4-10.4); Monocytes # 0.2 K/mm3 (0.1-1.0); Monocytes % 3.6 % (1.7-9.3); Neutrophils # 4.7 K/mm3 (1.8-7.8); Platelet Count 88 K/mm3 (142-424); Red Blood Count 3.76 M/mm3 (4.20-5.40); White Blood Count 6.1 K/mm3 (4.8-10.8)
[2024-06-10 11:11] LABS: Alanine Aminotransferase 16 U/L (12-78); Albumin Level 3.4 g/dl (3.5-5.0); Alkaline Phosphatase 75 U/L (38-126); Anion Gap 12.8 mEq/L (5-15); Aspartate Amino Transferase 29 U/L (14-36); Bilirubin,Total 0.8 mg/dl (0.2-1.3); Blood Urea Nitrogen 29 mg/dl (7-17); Calcium 8.7 mg/dl (8.4-10.2); Carbon Dioxide 26 mmol/L (22.0-30.0); Chloride 101 mmol/L (98-107); Estimated Glomerular Filt Rate 34 ml/min (>60); GFR (African American) 41 ML/MIN (>60); Globulin 3.3 g/dL (1.3-3.2); Glucose 92 mg/dl (74-100); Potassium 3.8 mmoL/L (3.5-5.1); Sodium 136 mmol/L (136-145); Total Protein,Serum 6.7 g/dl (6.3-8.2)
== END 2024-06-10 23:59 | disposition home or self-care (01) ==
LOC: LAB 09:57
PROVIDERS: PCP Internal Medicine; Visit Provider Internal Medicine Medical Oncology
DX: D69.6 Thrombocytopenia, unspecified (principal)
CPT/HCPCS: 36415; 80053; 85025

== ENCOUNTER 2024-06-16 09:34 | Outpatient (CLI) | payer MEDICARE, SELFPAY ==
[2024-06-16 10:00] LABS: Basophils % 0.3 % (0.1-2.0); Eosinophils # 0.1 K/mm3 (0.0-0.4); Eosinophils % 2.4 % (0.1-12.0); Hematocrit 31.3 % (37.0-47.0); Hemoglobin 10.3 g/dL (12.2-16.2); Lymphocytes # 0.9 K/mm3 (0.7-4.5); Lymphocytes % 22.7 % (10-50); Mean Corpuscular HGB Conc 32.9 g/dL (31.8-35.4); Mean Corpuscular Hemoglobin 26.3 pg (27.0-31.2); Mean Corpuscular Volume 80.1 fl (81-99); Mean Platelet Volume 10.5 fl (7.4-10.4); Monocytes # 0.1 K/mm3 (0.1-1.0); Monocytes % 2.9 % (1.7-9.3); Neutrophils # 2.6 K/mm3 (1.8-7.8); Neutrophils % 70.1 % (37.0-80.0); Platelet Count 106 K/mm3 (142-424); Red Blood Count 3.91 M/mm3 (4.20-5.40); Red Cell Distribution Width 15.2 % (11.5-17.5); Reticulocyte % (Auto) 1.5 % (0.9-3.2); White Blood Count 3.7 K/mm3 (4.8-10.8)
[2024-06-16 14:33] LABS: Ferritin 380 ng/ml (11.1-264)
[2024-06-16 14:59] LABS: Albumin Level 3.3 g/dl (3.5-5.0); Blood Urea Nitrogen 27 mg/dl (7-17); Calcium 8.7 mg/dl (8.4-10.2); Carbon Dioxide 23 mmol/L (22.0-30.0); Estimated Glomerular Filt Rate 37 ml/min (>60); GFR (African American) 45 ML/MIN (>60); Globulin 3.4 g/dL (1.3-3.2); Glucose 93 mg/dl (74-100); Total Protein,Serum 6.7 g/dl (6.3-8.2)
[2024-06-16 15:18] LABS: Chloride 105 mmol/L (98-107); Sodium 137 mmol/L (136-145)
[2024-06-16 15:21] LABS: Alanine Aminotransferase 15 U/L (12-78); Alkaline Phosphatase 72 U/L (38-126); Aspartate Amino Transferase 31 U/L (14-36); Bilirubin,Total 0.5 mg/dl (0.2-1.3); Iron 81 ug/dL (37-170)
[2024-06-16 15:30] LABS: Total Iron Binding Capacity 235 ug/dL (265-497)
[2024-06-16 16:12] LABS: Lactate Dehydrogenase 245 U/L (313-618)
[2024-06-17 05:08] LABS: Haptoglobin 269 mg/dL (42-346)
[2024-06-17 15:17] LABS: Alpha-1-Globulin 0.3 g/dL (0.0-0.4); Alpha-2-Globulin 0.9 g/dL (0.4-1.0); Free Kappa Lt Chains 118.8 mg/L (3.3-19.4); Free Lambda Lt Chains 81.4 mg/L (5.7-26.3); Gamma Globulin 1.6 g/dL (0.4-1.8); Protein, Total 6.7 g/dL (6.0-8.5)
[2024-06-18 17:03] LABS: Immunoglobulin A, Qn 394 mg/dL (64-422); Immunoglobulin G, Qn 1649 mg/dL (586-1602); Immunoglobulin M, Qn 135 mg/dL (26-217)
[2024-06-27 10:09] LABS: PDF SCANNED IMAGE
== END 2024-06-16 23:59 | disposition home or self-care (01) ==
LOC: LAB 09:34
PROVIDERS: PCP Internal Medicine; Visit Provider Internal Medicine Medical Oncology
DX: D69.6 Thrombocytopenia, unspecified (principal)
CPT/HCPCS: 36415; 80053; 81596; 82728; 82784; 83521; 83540; 83550; 83615; 84155; 84165; 85025; 85044; 86334

== ENCOUNTER 2024-06-17 08:18 | Outpatient (CLI) | payer MEDICARE, SELFPAY ==
--- NOTE | 2024-06-17 08:30 | MM_ITS ---
PROCEDURE INFORMATION: Exam: Bilateral Screening 3D Mammography Exam date and time: 06/17/2024 8:30 AM Age: 74 years old Clinical indication: Screening examination. TECHNIQUE: Imaging protocol: Bilateral Screening tomosynthesis and 2D mammography including computer-aided detection (CAD) when performed. COMPARISON: [facility] DIG MAMM-SCREEN ARNULFO 09/08/2015 3:53 PM FINDINGS: MAMMOGRAPHY: Breast composition: There are scattered areas of fibroglandular density. Mass: None. Architectural distortion: None. Calcifications: No suspicious calcifications. Asymmetric density: None. Skin thickening: None. Axillary adenopathy: None. IMPRESSION: No mammographic evidence of malignancy. Annual screening is recommended unless otherwise clinically indicated. ASSESSMENT: BI-RADS Category 1: Negative.
== END 2024-06-17 23:59 | disposition home or self-care (01) ==
LOC: RAD 08:18
PROVIDERS: PCP Internal Medicine; Visit Provider Internal Medicine
DX: Z12.31 Encounter for screening mammogram for malignant neoplasm of breast (principal)
CPT/HCPCS: 77063; 77067

== ENCOUNTER 2024-06-25 09:40 | Outpatient (CLI) | payer MEDICARE, SELFPAY ==
[2024-06-25 10:55] LABS: Hematocrit 30.3 % (37.0-47.0); Hemoglobin 9.8 g/dL (12.2-16.2); Mean Corpuscular HGB Conc 32.3 g/dL (31.8-35.4); Mean Corpuscular Hemoglobin 26.1 pg (27.0-31.2); Mean Corpuscular Volume 80.8 fl (81-99); Nucleated Red Blood Cells # 0 10^3/uL; Nucleated Red Blood Cells % 0 %; Platelet Count 91 K/mm3 (142-424); Red Blood Count 3.75 M/mm3 (4.20-5.40); Red Cell Distribution Width 15.5 % (11.5-17.5); Red Cell Distribution Width-SD 44.9 fL
[2024-06-25 11:23] LABS: Albumin Level 3.3 g/dl (3.5-5.0); Anion Gap 14.4 mEq/L (5-15); Blood Urea Nitrogen 21 mg/dl (7-17); Calcium 8.4 mg/dl (8.4-10.2); Carbon Dioxide 23 mmol/L (22.0-30.0); Chloride 101 mmol/L (98-107); Estimated Glomerular Filt Rate 44 ml/min (>60); GFR (African American) 53 ML/MIN (>60); Glucose 129 mg/dl (74-100); Potassium 3.4 mmoL/L (3.5-5.1); Sodium 135 mmol/L (136-145)
[2024-06-25 11:35] LABS: Intact Parathyroid Hormone 56.9 pg/mL (7.5-53.5)
[2024-06-25 11:40] LABS: 25-OH Vitamin D, Total 26.9 ng/mL (30-100)
[2024-06-25 14:36] LABS: Microscopic, Urine URINE MICROSCOPIC (MICROSCOPIC)
[2024-06-25 15:04] LABS: Creatinine,Urine Random 129 mg/dL (Not Estab.)
[2024-06-25 15:13] LABS: Appearance,Urine CLEAR (Clear); Bilirubin,Urine Negative (Negative); Blood, Urine Negative (Negative); Color,Urine YELLOW (Yellow); Glucose,Urine (UA) Negative (Negative); Ketones,Urine Negative (Negative); Leukocyte Esterase,Urine Negative (Negative); Nitrate,Urine Negative (Negative); Protein,Urine Negative (Negative); Urobilinogen,Urine 0.2 EU/dl (0.2)
[2024-06-25 15:25] LABS: Bacteria,Urine Trace /lpf; Squamous Epithelial Cell,Urine Occasional #/hpf (0-5)
== END 2024-06-25 23:59 | disposition home or self-care (01) ==
LOC: LAB 09:41
PROVIDERS: PCP Internal Medicine; Visit Provider Student in an Organized Health Care Education/Training Program
DX: N18.30 Chronic kidney disease, stage 3 unspecified (principal); E55.9 Vitamin D deficiency, unspecified
CPT/HCPCS: 36415; 80069; 81001; 82306; 82570; 83970; 84156; 85027

== ENCOUNTER 2024-08-20 20:27 | Inpatient (IN) | payer MEDICARE, SELFPAY ==
--- OUTSIDE RECORDS SUMMARY | 2024-06-25 10:00 | XMS_ITS | Encounter Summary ---
Author Organization [facility] Address [address] [place] [address] Care Team Providers Care Upper Leather Cutter Name Role Phone Diego López AUTOMOTIVE LOT ATTENDANT Primary Care Provider [phone]- [phone] Reason for Visit * Reason Comments Consult Pt is a 74 year old female that presents to the clinic on this date for a new patient visit. Pt denies any pain at the current moment. * Consultation (Routine) - Closed Specialty Diagnoses / Procedures Referred By Contac t Referred To Contact Nephrology Diagnoses Stage 3 chronic kidney disease, unspecified whether stage 3a or 3b CKD (CMS/HCC) Ganesh Chen MD [address] [place] [address] Phone: tel: fax: Referral ID Status Reason Start Date Expiration Date V isits Requested Visits Authorized [id number] Closed Specialty Services Required 01/20/2024 07/21/2025 1 1 Encounter Details Date Type Department Care Team (Late st Contact Info) Description 06/25/2024 10:00 AM EDT Consult [facility] [address] [place] [phone] Ganesh Chen MD [address] [place] [address] Stage 3 chronic kidney disease, unspecified whether stage 3a or 3b CKD (CMS/HCC) (Primary Dx); Chronic inflammatory arthritis; Hypertensive chronic kidney disease with stage 1 through stage 4 chronic kidney disease, or unspecified chronic kidney disease; Other specified hypothyroidism; Mixed hyperlipidemia; Other iron deficiency anemia Social History Tobacco Use Types Packs/Day Years Used Date Smoking Tobacco: Never Smokeless Tobacco: Never Alcohol Use Standard Drinks/Week Comments Never 0 (1 standard drink = 0.6 oz pur e alcohol) Comments No Sex and Gender Information Value Date Recorded Sex Assigned at Not on file Legal Sex Female 6:06 PM EDT Gender Identity Not on file Sexual Orientation Not on file documented as of this encounter Last Filed Vital Signs Vital Sign Reading Time Taken Comments Blood Pressure 122/83 06/25/2024 10:09 AM EDT Pulse 83 06/25/2024 10:09 AM EDT Temperature 36.7 C (98.1 F) 06/25/2024 10:09 AM EDT Respiratory Rate 18 06/25/2024 10:09 AM EDT Oxygen Saturation 98% 06/25/2024 10:09 AM EDT Inhaled Oxygen Concentration - - Weight 69.9 kg (154 lb) 06/25/2024 10:09 AM EDT Height 167.6 cm (5' 6 ) 06/25/2024 10:09 AM EDT Body Mass Index 24.86 06/25/2024 10:09 AM EDT documented in this encounter Miscellaneous Notes * Progress Notes - Ganesh Chen MD - 06/25/2024 10:00 AM EDT Nephrology Outpatient Clinic New Consult Visit Patient: Hayley Hutson Primary Care Provider: Diego López APRN Referring Provider: Diego López APRN Reason for consult: Chronic Kidney Disease Stage 3 HPI/Subjective Hayley Hutson is a 74 y.o. female with a PMH of HTN, HLD, hypothyroidism, has been referred for evaluation of chronic kidney disease creatinine 1.3-1.4 over the past year. She is unaware of any history of kidney disease and no family history of kidney disease. In the past few years she has had a lot of arthritis and has been taking ibuprofen and prednisone packs. She is going to see a Manager Six Sigma in July for official diagnosis for cause of her joint pains/swellings which she says her pcp believes may be Rheumatoid arthritis. ROS Review of Systems History: Medical History[1] Problem List[2] Surgical History[3] Family History[4] Social History Socioeconomic History Marital status: Spouse name: Not on file Number of children: Not on file Years of education: Not on file Highest education level: Not on file Occupational History Not on file Tobacco Use Smoking status: Never Smokeless tobacco: Never Substance and Sexual Activity Alcohol use: Never Drug use: Defer Sexual activity: Not on file Other Topics Concern Not on file Social History Narrative Not on file Social Drivers of Health Financial Resource Strain: Not on file Food Insecurity: Not on file Transportation Needs: Not on file Physical Activity: Not on file Stress: Not on file Social Connections: Not on file Intimate Partner Violence: Not on file Housing Stability: Not on file Allergies[5] Medications: Current Medications: Current Outpatient Medications Medication Instructions aspirin 81 mg, Daily atorvastatin (LIPITOR) 20 mg, Daily bisoprolol (ZEBETA) 5 mg, Daily hydroCHLOROthiazide (HYDRODIURIL) 25 mg, As needed LEVOTHYROXINE SODIUM PO Oral, Daily losartan (COZAAR) 25 mg, Daily Objective Visit Vitals BP 122/83 (BP Location: Left arm, Patient Position: Sitting, BP Cuff Size: Large adult) Pulse 83 Temp 36.7 ??C (98.1 ??F) (Tympanic) Resp 18 Ht 1.676 m (5' 6 ) Wt 69.9 kg (154 lb) SpO2 98% BMI 24.86 kg/m?? OB Status Postmenopausal Smoking Status Never BSA 1.8 m?? Temp: [36.7 ??C (98.1 ??F)] 36.7 ??C (98.1 ??F) Heart Rate: [83] 83 Resp: [18] 18 BP: (122)/(83) 122/83 Physical Exam: Physical Exam Constitutional: General: She is not in acute distress. Appearance: Normal appearance. She is normal weight. She is not ill-appearing. HENT: Head: Normocephalic. Right Ear: External ear normal. Left Ear: External ear normal. Nose: Nose normal. Mouth/Throat: Mouth: Mucous membranes are moist. Pharynx: Oropharynx is clear. Eyes: Conjunctiva/sclera: Conjunctivae normal. Pupils: Pupils are equal, round, and reactive to light. Cardiovascular: Rate and Rhythm: Normal rate. Pulses: Normal pulses. Pulmonary: Effort: Pulmonary effort is normal. Abdominal: General: Abdomen is flat. Musculoskeletal: General: Deformity present. Normal range of motion. Cervical back: Normal range of motion. Comments: Notable MCP joint deformities Skin: General: Skin is warm and dry. Capillary Refill: Capillary refill takes less than 2 seconds. Neurological: General: No focal deficit present. Mental Status: She is alert and oriented to person, place, and time. Mental status is at baseline. Psychiatric: Mood and Affect: Mood normal. Behavior: Behavior normal. Thought Content: Thought content normal. Judgment: Judgment normal. Laboratory: LAB RESULTS available in media section I have personally reviewed these laboratory studies from her referring provider and/or primary careprovider. I discuss their significant below. RFP 11/03/2023 A 138, K 4.2, Cl 108, CO2 24, BUN 19, Cr 1.30, GFR 40, Glu 93, Ca 8.7, Mag 1.9 Urine creatinine 95.8 Urine protein 19.9 UPEP: M-spike - not observed CBC: WBC 5.1, Hgb 12.6, PLT 107 (low) Labs 06/16/2024 CBC: WBC 3.7, HGB 10.3, PLT 106 RFP: Na 137, K 4.0, Cl 105, CO2 23, BUN 27, Creat 1.4, GFR 37, Glu 93, Ca 8.7, FE 81, TIBC 235, Ferritin 380 (H) Fr [place] Lt chn 118.8, Fr lambda lt ch 81.3, Ratio 1.46 Imaging: No recent kidney imaging for review Impression & Plan: Hayley Hutson is a 74 y.o. female with PMH of inflammatory arthritis with chronic NSAID use, HTN, who presents for evaluation of CKD #CKD Stage 3 b Etiology: Chronic NSAID use and hypertension Baseline serum creatinine: 1.3-1.4 Most recent Scr: 1.4 eGFR 37 Electrolytes, acid/base, volume status wnl Urine: ~0.2 UPCR, UA pending Anatomy: no recent kidney imaging. No urinary issues Risk factor reduction to slow progression of kidney disease: -BP Control goal BP <130/80 -Lifestyle management: ---Maintain healthy weight: Body mass index is 24.86 kg/m??. ---Diet recommendations: Heart healthy and Low sodium <2g/day ---Daily exercise 20-30 minutes as tolerated -Avoid NSAIDs -ANN blockade: Losartan 25 mg daily -SGLT2 inhibitor: No strong indication currently #HTN in CKD -Goal BP <130/85 -Patient is approximately at goal -Bisoprolol 10mg, hydrochlorothiazide 25mg daily, Losartan 25mg daily #Anemia -Noted anemia on recent CBC hgb 10.6, looks like chronic thrombocytopenia as well present on 2023 labs. Does not seem to be due to kidney disease and iron studies suggest a chronic inflammatory process. Patient going to see Rheumatology. #CKD Bone and Mineral Disease -check PTH and Vit D with next labs #Hyperlipidemia in CKD -patients over 50 years of age with CKD 3-5 would benefit from a statin medication to lower risk ofcardiovascular events. She is on atorvastatin 20mg daily Recommendations and plan: -I have reviewed Ms. Hutson's labs from this year and in October 2023. She has stable chronic kidney disease. Her greatest risk factor is her continued use of NSAIDs and prednisone. She will be seeing arheumatologist for diagnosis of inflammatory arthritis. She otherwise appears well, no medication changes today -She would benefit from continued follow up -Counseled her to avoid NSAIDs RTC in 1 year with labs before visit Ganesh Chen MD Division of Nephrology [facility] Counseling Documentation: The patient was counseled regarding COUNSELING TOPICS: diagnostic results, prognosis, risks and benefit of treatment options, risk factor reductions, instructions for management, patient and family education, medication changes, diagnostic impressions, Heart healthy diet, regular physical activity and weight control, Avoidance of NSAIDs and other nephrotoxins, and terminal computer operator nature of condition. Education provided was verbal counseling.Additional time was spent in care coordination including medical record review. MDM: - was based on the following: Labs reviewed Urine studies: UA or spot urine protein and creatinine ratio and Metabolic profile: renal panel, CBC, or Fe studies- FE, TIBC, Ferritin, retic count Old chart reviewed ORDERS PLACED THIS ENCOUNTER Orders Placed This Encounter Procedures CBC W/O Differential Standing Status: Future Expected Date: 06/25/2025 Expiration Date: 07/30/2025 [facility] Urinalysis with reflex microscopic (Culture NOT Included) Standing Status: Future Expected Date: 06/25/2025 Expiration Date: 07/30/2025 [facility] Vitamin D 25 Hydroxy Standing Status: Future Expected Date: 06/25/2025 Expiration Date: 07/30/2025 [facility]mediate PTH Intact Total Standing Status: Future Expected Date: 06/25/2025 Expiration Date: 07/30/2025 [facility] Immediate Albumin-creatinine ratio, urine, random Standing Status: Future Expected Date: 06/25/2025 Expiration Date: 07/30/2025 [facility]mediate Protein, Random, Urine with Creatinine Standing Status: Future Expected Date: 06/25/2025 Expiration Date: 07/30/2025 [facility] Renal Function Panel, Plasma Standing Status: Future Expected Date: 06/25/2025 Expiration Date: 07/30/2025 [facility] Immediate Problem List Items Addressed This Visit Stage 3 chronic kidney disease (CMS/HCC) - Primary Relevant Medications losartan (Cozaar) 25 MG tablet hydroCHLOROthiazide (HYDRODiuril) 25 MG tablet Other Relevant Orders CBC W/O Differential Urinalysis with reflex microscopic (Culture NOT Included) Vitamin D 25 Hydroxy PTH Intact Total Albumin-creatinine ratio, urine, random Protein, Random, Urine with Creatinine Renal Function Panel, Plasma Chronic inflammatory arthritis Relevant Orders CBC W/O Differential Urinalysis with reflex microscopic (Culture NOT Included) Vitamin D 25 Hydroxy PTH Intact Total Albumin-creatinine ratio, urine, random Protein, Random, Urine with Creatinine Renal Function Panel, Plasma Hypertensive chronic kidney disease with stage 1 through stage 4 chronic kidney disease, or unspecified chronic kidney disease Relevant Medications losartan (Cozaar) 25 MG tablet hydroCHLOROthiazide (HYDRODiuril) 25 MG tablet Other specified hypothyroidism Relevant Medications bisoprolol (Zebeta) 10 MG tablet LEVOTHYROXINE SODIUM PO Mixed hyperlipidemia Relevant Medications atorvastatin (Lipitor) 20 MG tablet Iron deficiency anemia I confirm that I have addressed the patient's longitudinal multifaceted and complex health related active and chronic conditions that will require ongoing care with myself or someone on my team. [1] Past Medical History: Diagnosis Date History of heart attack Skin lesion of upper extremity Thrombocytopenia (CMS/HCC) [2] There is no problem list on file for this patient. [3] Past Surgical History: Procedure Laterality Date CARDIAC CATHETERIZATION TUBAL LIGATION [4] History reviewed. No pertinent family history. [5] Allergies Allergen Reactions Codeine Nausea and Vomiting documented in this encounter Plan of Treatment Upcoming Encounters Date Type Department Care Team (Late st Contact Info) Description 07/08/2025 12:40 PM EDT Office Visit [facility] [address] [address] Ganesh Chen MD [address] [place] [address] Scheduled Orders Name Type Priority Associated Diagnoses Orde r Schedule CBC W/O Differential Lab Routine Stage 3 chronic kidney disease, unspecified whether stage 3a or 3b CKD ([facility]/HCC) Chronic inflammatory arthritis Expected: 06/25/2025 (Approximate), Expires: 07/30/2025 Urinalysis with reflex microscopic (Culture NOT Included) Lab Routine Stage 3 chronic kidney disease, unspecified whether stage 3a or 3b CKD (CMS/HCC) Chronic inflammatory arthritis Expected: 06/25/2025 (Approximate), Expires: 07/30/2025 Vitamin D 25 Hydroxy Lab Routine Stage 3 chronic kidney disease, unspecified whether stage 3a or 3b CKD (CMS/HCC) Chronic inflammatory arthritis Expected: 06/25/2025 (Approximate), Expires: 07/30/2025 PTH Intact Total Lab Routine Stage 3 chronic kidney disease, unspecified whether stage 3a or 3b CKD (CMS/HCC) Chronic inflammatory arthritis Expected: 06/25/2025 (Approximate), Expires: 07/30/2025 Albumin-creatinine ratio, urine, random Lab Routine Stage 3 chronic kidney disease, unspecified whether stage 3a or 3b CKD (CMS/HCC) Chronic inflammatory arthritis Expected: 06/25/2025 (Approximate), Expires: 07/30/2025 Protein, Random, Urine with Creatinine Lab Routine Stage 3 chronic kidney disease, unspecified whether stage 3a or 3b CKD (CMS/HCC) Chronic inflammatory arthritis Expected: 06/25/2025 (Approximate), Expires: 07/30/2025 Renal Function Panel, Plasma Lab Routine Stage 3 chronic kidney disease, unspecified whether stage 3a or 3b CKD (CMS/HCC) Chronic inflammatory arthritis Expected: 06/25/2025 (Approximate), Expires: 07/30/2025 documented as of this encounter Visit Diagnoses Diagnosis Stage 3 chronic kidney disease, unspecified whether stage 3a or 3b CKD (CMS/HCC)- Primary Chronic inflammatory arthritis Hypertensive chronic kidney disease with stage 1 through stage 4 chronic kidney disease, or unspecified chronic kidney disease Other specified hypothyroidism Mixed hyperlipidemia Other iron deficiency anemia documented in this encounter Additional Health Concerns Assessment Noted Time A Body Mass Index follow-up plan has been documented for the patient 06/29/2024 11:30 AM EDT documented as of this encounter Care Teams Upper Leather Cutter Relationship Specialty Start Date End Date Diego López APRN [address] [place] [address] PCP - General 07/21/20 documented as of this encounter
--- OUTSIDE RECORDS SUMMARY | 2024-06-25 10:00 | XMS_ITS | Encounter Summary ---
Author Organization [facility] Address [address] [place] [address] Care Team Providers Care Tile Erector Name Role Phone Diego López BOAT RIGGER Primary Care Provider [phone] Reason for Visit * Reason Comments Consult [...] 3b CKD (CMS/HCC) Ganesh Chen MD [address] [place] [address] Phone: tel: fax: Referral ID Status Reason Start Date Expiration Date V isits Requested Visits Authorized [id number] Closed Specialty Services Required 01/20/2024 07/21/2025 1 1 Encounter Details Date Type Department Care Team (Late st Contact Info) Description 06/25/2024 10:00 AM EDT Consult [facility] [address] [place] [phone] Ganesh Chen MD [address] [place] [address] Stage 3 chronic kidney disease, [...] packs. She is going to see a Nurse Recruiter in July for official diagnosis for cause [...] 81, TIBC 235, Ferritin 380 (H) Fr [place] Lt chn 118.8, Fr lambda lt ch [...] visit Ganesh Chen MD Division of Nephrology [facility] Counseling Documentation: The patient was counseled regarding COUNSELING TOPICS: diagnostic results, prognosis, risks and benefit of treatment options, risk factor reductions, instructions for management, patient and family education, medication changes, diagnostic impressions, Heart healthy diet, regular physical activity and weight control, Avoidance of NSAIDs and other nephrotoxins, and oil heaterman nature of condition. Education provided was verbal [...] Expiration Date: 07/30/20[facility] Urinalysis with reflex microscopic (Culture NOT Included) Standing Status: Future Expected Date: 06/25/2025 Expiration Date: 07/30/2025 [facility] Vitamin D 25 Hydroxy Standing Status: Future Expected Date: 06/25/2025 Expiration Date: 07/30/2025 [facility] Immediate PTH Intact Total Standing Status: Future Expected Date: 06/25/2025 Expiration Date: 07/30/2025 [facility] Im[facility] Albumin-creatinine ratio, urine, random Standing Status: Future Expected Date: 06/25/2025 Expiration Date: 07/30/2025 [facility] Protein, Random, Urine with Creatinine Standing Status: Future Expected Date: 06/25/2025 Expiration Date: 07/30/2025 [facility] Renal Function Panel, Plasma Standing Status: Future Expected Date: 06/25/2025 Expiration Date: 07/30/2025 [facility] Im[facility] Problem List Items Addressed This Visit [...] Description 07/08/2025 12:40 PM EDT Office Visit [facility] [address] [address] Ganesh Chen MD [address] [place] [address] Scheduled Orders Name Type Priority Associated Diagnoses Orde r Schedule CBC W/O Differential Lab Routine Stage 3 chronic kidney disease, unspecified whether stage 3a or 3b CKD ([facility]/HCC) Chronic inflammatory arthritis Expected: 06/25/2025 (Approximate), Expires: [...] documented as of this encounter Care Teams Tile Erector Relationship Specialty Start Date End Date Diego López APRN [address] [place] [address] PCP - General 07/21/20 documented as of this encounter
[2024-08-20] VITALS (7 sets, daily range): BP systolic 113–133; BP diastolic 52–71; PULSE 73–82; RESP 16–20; TEMP 36.7–36.9; O2SAT 95–98; BMI 23.6
--- OUTSIDE RECORDS SUMMARY | 2024-08-20 20:42 | XMS_ITS | Encounter Summary ---
Author Organization [facility] Address [address] [place] [id number] Care Team Providers Care Courtroom Reporter Name Role Phone Diego Lóepz CERTIFIED MASTER SAFE TECHNICIAN Primary Care Provider [phone] Encounter Details Date Type Department Care Team (Latest Contact Info) Description 06/25/2024 Travel Social History Tobacco Use Types Packs/Day Years [...] on file documented as of this encounter Plan of Treatment Upcoming Encounters Date Type Department Care Team (Late st Contact Info) Description 07/08/2025 12:40 PM EDT Office Visit [facility] [address] [place] [address] Ganesh Chen MD [address] [place] [phone] documented as of this encounter Visit Diagnoses Not on filedocumented in this encounter Additional Health Concerns Assessment Noted Time A Body Mass Index follow-up plan has been documented for the patient 06/29/2024 11:30 AM EDT documented as of this encounter Care Teams Courtroom Reporter Relationship Specialty Start Date End Date Diego López APRN [address] [facility] [address] PCP - General 07/21/20 documented as of this encounter
--- OUTSIDE RECORDS SUMMARY | 2024-08-20 20:42 | XMS_ITS | Clinical Summary ---
Author Organization [facility] Address [address] [place] [address] Care Team Providers Care Classroom Instructional Aide Name Role Phone Diego López APRN Primary Care Provider [phone]- [phone] Allergies Active Allergy Reactions Criticality Noted Date Comments Codeine Nausea,Vomiting Medium 06/22/2024 Medications aspirin 81 MG EC tablet Take 1 tablet by mouth daily. Active atorvastatin (Lipitor) 20 MG tablet Take 1 tablet by mouth daily. Active bisoprolol (Zebeta) 10 MG tablet Take 0.5 tablets by mouth in the morning. Active LEVOTHYROXINE SODIUM PO Take by mouth daily. Active losartan (Cozaar) 25 MG tablet Take 1 tablet by mouth daily. Active hydroCHLOROthia zide (HYDRODiuril) 25 MG tablet Take 1 tablet by mouth as needed. Active Active Problems Problem Noted Date Diagnosed Date Stage 3 chronic kidney disease 06/25/2024 Chronic inflammatory arthritis 06/25/2024 Hypertensive chronic kidney disease with stage 1 through stage 4 chronic kidney disease, or unspecified chronic kidney disease 06/25/2024 Other specified hypothyroidism 06/25/2024 Mixed hyperlipidemia 06/25/2024 Iron deficiency anemia 06/25/2024 Encounters Date Type Department Care Team Description 06/25/2024 10:00 AM EDT Consult [facility] [address] [place] [phone] Ganesh hCen MD Stage 3 chronic kidney disease, unspecified whether stage 3a or 3b CKD (CMS/HCC) (Primary Dx); Chronic inflammatory arthritis; Hypertensive chronic kidney disease with stage 1 through stage 4 chronic kidney disease, or unspecified chronic kidney disease; Other specified hypothyroidism; Mixed hyperlipidemia; Other iron deficiency anemia 06/25/2024 Travel from Last 3 Months Social History Tobacco Use Types Packs/Day Years Used Date Smoking Tobacco: Never Smokeless Tobacco: Never Alcohol Use Standard Drinks/Week Comments Never 0 (1 standard drink = 0.6 oz pur e alcohol) Comments No Sex and Gender Information Value Date Recorded Sex Assigned at Not on file Legal Sex Female 6:06 PM EDT Gender Identity Not on file Sexual Orientation Not on file Last Filed Vital Signs Vital Sign Reading [...] Mass Index 24.86 06/25/2024 10:09 AM EDT Plan of Treatment Upcoming Encounters Date Type Department Care Team (Late st Contact Info) Description 07/08/2025 12:40 PM EDT [facility] [address] [place] [phone] Ganesh Chen MD [address] [place] [phone] Health Maintenance Due Date Last Done Comments [facility]-Bone Density Scan 1950 [facility]-Depression Screening 1950 [facility]-Hepatitis C Screening 1950 [facility]-Medicare Annual Wellness (AWV) 1950 [facility]-Infant/Child/Adol SDOH Screenings 1950 [facility]- SDOH Screenings 05/15/1969 [facility]-Adult SDOH Screenings 05/15/1969 [facility]-DTaP,Tdap,and Td Vaccines (1 - Tdap) 05/14/1996 05/13/1996 CT Colonography 05/15/1996 Colonoscopy 05/15/1996 FIT-DNA 05/15/1996 FIT 05/15/1996 FOBT 05/15/1996 Sigmoidoscopy 05/15/1996 [facility]-Colorectal Cancer Screening 05/15/1996 [facility]-Breast Cancer Screening 05/15/2001 [facility]-Pneumococcal Vaccine: 50+ Years (1 of 1 - PCV) 05/15/2001 [facility]-Zoster Vaccines (1 of 2) 05/15/2001 [facility]-RSV Vaccine: 60+ Years or (1 - Risk 60-74 years 1-dose series) 2011 [id number] Vaccine (3 - Pfizer risk series) 01/24/2021 12/27/2020, 12/06/2020 [facility]-Influenza Vaccine (Season Ended) 2024 03/07/2023, 01/05/2020, 02/18/2018, Additional history exists HPV Vaccines Aged Out No longer eligi ble based on patient's age to complete this topic [facility]-HIB Vaccines Aged Out No longer e ligible based on patient's age to complete this topic [facility]-Hepatitis A Vaccines Aged Out No longer eligible based on patient's age to complete this topic [facility]-IPV Vaccines Aged Out No longer e ligible based on patient's age to complete this topic [facility]-Rotavirus Vaccines Aged Out No lo nger eligible based on patient's age to complete this topic Insurance [employer] MEDICARE Care Teams Classroom Instructional Aide Relationship Specialty Start Date End Date Diego López APRN [address] [place] [address] [place] [id number] (work) PCP - General 07/21/20
--- OUTSIDE RECORDS SUMMARY | 2024-08-20 20:42 | XMS_ITS | Data Portability ---
Author Organization [facility] [place], [place] [facility] Address [address] [facility] [address] [place] [address] Care Team Providers Care Timber Supervisor Name Role Phone BETHANY WOLFE Referring Provider [phone] BETHANY WOLFE Primary Care Provider KEENA LI Delphi Programmer [phone] Assessment No assessment recorded. Plan of Treatment Reminders Order Date Submit Date Provider Last Modified By Organization Details Last Modified Time Details Appointments RHEUM RECHECK 2024 03:00P M KEENA LI MD Not available Not available Not available CT SCAN 2024 02:20P M ct_scan Not available Not available Not available RHEUM RECHECK 2024 03:30P M KEENA LI MD Not available Not available Not available Lab CBC w/ auto diff 2024 025 [facility], [address] [place] [address], [id number], 08/20/2024 16:10:41 CMP, serum or plasma 2024 025 [facility], [address] [place] [address], [id number], 08/20/2024 19:03:00 CBC w/ auto diff 2024 025 [facility], [address] [place] [address], [id number], 08/03/2024 15:27:43 CMP, serum or plasma 2024 025 [facility], [address] [place] [address], [id number], 08/03/2024 15:48:05 ESR (erythro cyte sediment ation rate), blood 2024 025 [facility], [address] [place] [address], [id number], 08/03/2024 18:34:41 C reactive protein, QN, serum or plasma 2024 025 [facility], [address] [place] [address], [id number], 08/03/2024 15:48:02 vitamin D, 25-hydro xy, total, serum 2024 025 [facility], [address] [place] [address], [address], 08/03/2024 15:34:19 CK (creatin e kinase), total, serum 2024 025 [facility], [address] [place] [address], [address], 08/03/2024 15:48:03 vitamin B12, serum 2024 025 [facility], [address] [place] [address], [address], 08/03/2024 15:34:21 folate, serum 2024 025 [facility], [address] [place] [address], [address], 08/03/2024 15:34:18 TSH, serum, reflex free T4 2024 025 [facility], [address] [place] [address], [id number], 08/03/2024 15:29:12 ccp (cyclic citrulli nated peptide) iga+igg, serum 2024 025 [facility], [address] [place] [address], [id number], 08/05/2024 16:39:40 CBC w/ auto diff [address] [facility], [address] [place] [address], [id number], 08/10/2024 08:04:48 CMP, serum or plasma [address] [facility], [address] [place] [address], [id number], 08/10/2024 08:04:48 ESR (erythro cyte sediment ation rate), blood [address] [facility], [address] [place] [address], [address], 08/10/2024 08:04:48 C reactive protein, QN, serum or plasma [address] [facility], [address] [place] [address], [address], 08/10/2024 08:04:48 Mycobact erium tubercul osis stimulat ed gamma interfer on, qual, blood 2024 [facility], [address] [place] [address], [id number], 08/05/2024 15:38:07 hepatiti s (A+B+C) panel, serum 2024 [facility], [address] [place] [address], [id number], 08/03/2024 15:28:56 Referral None recorded . Procedures None recorded . Surgeries None recorded . Imaging XR, ankle, 3 or more view 2024 [facility], [address] [place] [address], [id number], 08/03/2024 14:30:45 XR, chest, 2 view 2024 [facility], [address] [place], [address], 08/03/2024 14:26:18 Medication Orders predniso ne [address] [facility], [address], [address], 08/20/2024 16:09:49 Valtrex [address] [facility], [address], [address], 08/20/2024 16:09:47 Compound Magic Mouthwas h #10 (Dipheny dramine/ Nystatin /Maalox/ Lidocain e 1:1:1:1) 2024 [facility], [address], [address], 08/20/2024 16:09:46 predniso ne 5 mg tablet [address] [facility], [address], [address], 08/03/2024 13:45:28 methotre xate sodium 2.[address] [facility], [address], [address], 08/20/2024 15:33:39 folic acid 1 mg tablet [address] [facility], [address], [address], 08/20/2024 15:33:44 Patient TargetsNo targets recorded. Patient Instructions Encounter Date Encounter Id Patient Instructions Last Modified By Organization Details Last Modified Time 08/03/2024 [id number] medical record request* - Please send the X rays on the hands and the cervical spine Not available 08/10/2024 08:04:54 I spent >60 minutes caring for the patient today with counseling, coordinating care, extensive review of outside records, medication management, and documentation. Not available 08/06/2024 20:07:40 Reason for Referral None Reported. Results Created Date Observation Date Name Description Value Unit Range Abnormal Flag Note LastModifiedBy Organization Detail LastModifiedTime 08/04/19 25 08/03/2024 COMPL ETE BLOOD COUNT white blood cells 5.1 10*3/ uL 3.8-10 .8 normal Not Available [facility] [address] [place] [address], [id number], 08/03/2024 15:27:43 08/04/19 25 08/03/2024 COMPL ETE BLOOD COUNT red blood cells 3.42 10*6/ uL 3.80-5 .20 low Not Available [facility] [address] [place] [address], [address], 08/03/2024 15:27:43 08/04/19 25 08/03/2024 COMPL ETE BLOOD COUNT hemoglobin 9.3 g/dL 12.0-1 6.0 low Not Available [facility] [address] [place], [address], 08/03/2024 15:27:43 08/04/19 25 08/03/2024 COMPL ETE BLOOD COUNT hematocrit 27.8 % 35.0-4 7.0 low Not Available [facility] [address] [place] [address], [phone], 08/03/2024 15:27:43 08/04/19 25 08/03/2024 COMPL ETE BLOOD COUNT MCV 82 fL 80-100 normal Not Available [facility] [address] [place], [address], 08/03/2024 15:27:43 08/04/19 25 08/03/2024 COMPL ETE BLOOD COUNT MCH 27 pg 26-35 normal Not Available [facility] [address] [place] [address], [address], 08/03/2024 15:27:43 08/04/19 25 08/03/2024 COMPL ETE BLOOD COUNT MCHC 33 g/dL 32-36 normal Not Available [facility] [address] [place] [address], [address], 08/03/2024 15:27:43 08/04/19 25 08/03/2024 COMPL ETE BLOOD COUNT RDW 17.3 % 11.0-1 5.0 high Not Available [facility] [address] [place] [address], [address], 08/03/2024 15:27:43 08/04/19 25 08/03/2024 COMPL ETE BLOOD COUNT MPV 10.6 fL 6.2-10 .5 high Not Available [facility] [address] [place] [address], [address], 08/03/2024 15:27:43 08/04/19 25 08/03/2024 COMPL ETE BLOOD COUNT platelet count 54 10*3/ uL 150-40 0 low Not Available [facility] [address] [place] [address], [address], 08/03/2024 15:27:43 08/04/19 25 08/03/2024 COMPL ETE BLOOD COUNT neutrophil,a bsolute 4.1 10*3/ uL 1.6-8. 4 normal Not Available [facility] [address] [place] [address], [address], 08/03/2024 15:27:43 08/04/19 25 08/03/2024 COMPL ETE BLOOD COUNT lymphocyte,a bsolute 0.7 10*3/ uL 0.4-5. 1 normal Not Available [facility] [address] [place] [address], [address], 08/03/2024 15:27:43 08/04/19 25 08/03/2024 COMPL ETE BLOOD COUNT monocyte,abs olute 0.2 10*3/ uL 0.0-1. 2 normal Not Available [facility] [address] [place] [address], [address], 08/03/2024 15:27:43 08/04/19 25 08/03/2024 COMPL ETE BLOOD COUNT eosinophil,a bsolute 0.1 10*3/ uL 0.0-0. 8 normal Not Available [facility] [address] [place] [address], [address], 08/03/2024 15:27:43 08/04/19 25 08/03/2024 COMPL ETE BLOOD COUNT basophil,abs olute 0.0 10*3/ uL 0.0-0. 3 normal Not Available [facility] [address] [place] [address], [address], 08/03/2024 15:27:43 08/04/19 25 08/03/2024 COMPL ETE BLOOD COUNT % neutrophils 81.1 % 42.0-7 8.0 high Not Available [facility] [address] [place] [address], [address], 08/03/2024 15:27:43 08/04/19 25 08/03/2024 COMPL ETE BLOOD COUNT % lymphocytes 13.7 % 11.0-4 7.0 normal Not Available [facility] [address] [place] [address], [address], 08/03/2024 15:27:43 08/04/19 25 08/03/2024 COMPL ETE BLOOD COUNT % monocytes 3.2 % 0.0-11 .0 normal Not Available [facility] [address] [place] [address], [address], 08/03/2024 15:27:43 08/04/19 25 08/03/2024 COMPL ETE BLOOD COUNT % eosinophils 1.5 % 0.0-7. 0 normal Not Available [facility] [address] [place] [address], [address], 08/03/2024 15:27:43 08/04/19 25 08/03/2024 COMPL ETE BLOOD COUNT % basophils 0.5 % 0.0-3. 0 normal Not Available [facility] [address] [place] [address], [address], 08/03/2024 15:27:43 08/04/19 25 08/03/2024 COMPL ETE BLOOD COUNT nucleated red cells 0.1 % 0.0-0. 9 normal Not Available [facility] [address] [place] [address], [address], 08/03/2024 15:27:43 08/04/19 25 08/03/2024 COMPL ETE BLOOD COUNT nucleated RBCs, absolute 0.00 10*3/ uL not estab. normal Not Available [facility] [address] [place] [address], [address], 08/03/2024 15:27:43 08/04/19 25 08/03/2024 HEPAT ITIS PANEL hepatitis A Ab, IgM NONREA CTIVE nonrea ctive normal Not Available [facility] [address] [place] [address], [address], 08/03/2024 15:28:56 08/04/19 25 08/03/2024 HEPAT ITIS PANEL hepatitis B surface Ag NONREA CTIVE nonrea ctive normal Not Available [facility] [address] [place] [address], [address], 08/03/2024 15:28:56 08/04/19 25 08/03/2024 HEPAT ITIS PANEL hepatitis B core Ab,IgM NONREA CTIVE nonrea ctive normal Not Available [facility] [address] [place] [address], [address], 08/03/2024 15:28:56 08/04/19 25 08/03/2024 HEPAT ITIS PANEL hcab, reflex viral RNA qt NONREA CTIVE nonrea ctive normal Antib odies to HCV were not detec shayla; does not exclu de the possi bilit y of expos ure to HCV. Not Available [facility] [address] [place] [address], [address], 08/03/2024 15:28:56 08/04/19 25 08/03/2024 TSH WITH REFLE X FT4 TSH with reflex FT4 1.470 u[IU] /mL 0.270- 4.200 normal Not Available [facility] [address] [place] [address], [address], 08/03/2024 15:29:12 08/04/19 25 08/03/2024 FOLIC ACID folic acid 4.8 NG/mL 4.6-34 .8 normal Not Available [facility] [address] [place] [address], [address], 08/03/2024 15:34:18 08/04/19 25 08/03/2024 VITAM IN D 25-OH vitamin D 25-oh, total 15 NG/mL >=30 NG/mL abnormal Not Available [facility] [address] [place] [address], [address], 08/03/2024 15:34:19 08/04/19 25 08/03/2024 VITAM IN B12 vitamin B12 252 pg/mL 232-12 45 normal Not Available [facility] [address] [place] [address], [address], 08/03/2024 15:34:21 08/04/19 25 08/03/2024 C REACT ANGELA PROTE IN C reactive protein 6.15 mg/dL 0.00-0 .49 high Not Available [facility] [address] [place] [address], [phone], 08/03/2024 15:48:02 08/04/19 25 08/03/2024 CREAT INE KINAS E creatine kinase 36 U/L 0-169 normal Not Available [facility] [address] [place] [address], [address], 08/03/2024 15:48:03 08/04/19 25 08/03/2024 COMP. METAB OLIC PANEL glucose 91 mg/dL 74-100 normal Not Available [facility] [address] [place] [address], [address], 08/03/2024 15:48:05 08/04/19 25 08/03/2024 COMP. METAB OLIC PANEL blood urea nitrogen 21 mg/dL 6-20 high Not Available [facility] [address] [place] [address], [address], 08/03/2024 15:48:05 08/04/19 25 08/03/2024 COMP. METAB OLIC PANEL creatinine 1.40 mg/dL 0.50-0 .95 high Not Available [facility] [address] [place] [address], [address], 08/03/2024 15:48:05 08/04/19 25 08/03/2024 COMP. METAB OLIC PANEL BUN/creatini ne ratio 15 (calc ) 10-20 normal Not Available [facility] [address] [place] [address], [address], 08/03/2024 15:48:05 08/04/19 25 08/03/2024 COMP. METAB OLIC PANEL sodium 134 mmol/ L 136-14 5 low Not Available [facility] [address] [place] [address], [address], 08/03/2024 15:48:05 08/04/19 25 08/03/2024 COMP. METAB OLIC PANEL potassium 3.3 mmol/ L 3.4-5. 0 low Not Available [facility] [address] [place] [address], [address], 08/03/2024 15:48:05 08/04/19 25 08/03/2024 COMP. METAB OLIC PANEL chloride 103 mmol/ L 98-107 normal Not Available [facility] [address] [place] [address], [address], 08/03/2024 15:48:05 08/04/19 25 08/03/2024 COMP. METAB OLIC PANEL carbon dioxide 20 mmol/ L 22-31 low Not Available [facility] [address] [place] [address], [address], 08/03/2024 15:48:05 08/04/19 25 08/03/2024 COMP. METAB OLIC PANEL anion gap 11 (calc ) 7-25 normal Not Available [facility] [address] [place] [address], [address], 08/03/2024 15:48:05 08/04/19 25 08/03/2024 COMP. METAB OLIC PANEL calcium 8.4 mg/dL 8.6-10 .2 low Not Available [facility] [address] [place] [address], [address], 08/03/2024 15:48:05 08/04/19 25 08/03/2024 COMP. METAB OLIC PANEL total protein 6.9 g/dL 6.4-8. 3 normal Not Available [facility] [address] [place] [address], [address], 08/03/2024 15:48:05 08/04/19 25 08/03/2024 COMP. METAB OLIC PANEL albumin 3.4 g/dL 3.5-5. 2 low Not Available [facility] [address] [place] [address], [address], 08/03/2024 15:48:05 08/04/19 25 08/03/2024 COMP. METAB OLIC PANEL globulin 3.5 1.5-4. 5 normal Not Available [facility] [address] [place] [address], [address], 08/03/2024 15:48:05 08/04/19 25 08/03/2024 COMP. METAB OLIC PANEL albumin/glob ulin ratio 1.0 (calc ) 1.1-2. 5 low Not Available [facility] [address] [place], [address], 08/03/2024 15:48:05 08/04/19 25 08/03/2024 COMP. METAB OLIC PANEL bilirubin, total 0.5 mg/dL 0.1-1. 2 normal Not Available [facility] [address] [place] [address], [address], 08/03/2024 15:48:05 08/04/19 25 08/03/2024 COMP. METAB OLIC PANEL alkaline phosphatase 69 U/L 30-121 normal Not Available [facility] [address] [place], [address], 08/03/2024 15:48:05 08/04/19 25 08/03/2024 COMP. METAB OLIC PANEL AST 18 U/L 0-32 normal Not Available [facility] [address] [place] [address], [address], 08/03/2024 15:48:05 08/04/19 25 08/03/2024 COMP. METAB OLIC PANEL ALT 9 U/L 0-33 normal Not Available [facility] [address] [place] [address], [address], 08/03/2024 15:48:05 08/04/19 25 08/03/2024 COMP. METAB OLIC PANEL GFR 40 >= 60 abnormal NOT E New calcu latio n for GFR (CKD- EPI 2020) is formu lated witho ut race adjus tment facto rs at the recom menda tion of the [facility] [place] [facility] of Nephr ology . This calcu latio n has not been valid ated in pregn ant women . For pedia tric patie nts refer to https ://sunni dolan.renan lr/pr natasha campbell s/KDO QI/gf r_cal culat orPed Not Available [facility] [address] [place] [address], [address], 08/03/2024 15:48:05 08/04/1908/03/2024 ESR, AUTOM ATED ESR, automated 14 mm 0-29 normal Not Available [facility] [address] [place] [address], [address], 08/03/2024 18:34:41 08/04/19 25 08/05/2024 QUANT IFERO N TB GOLD qtb gold NEGATI VE negati ve normal Negat angela test resul t. M. tuber culos is compl ex infec tion unlik grady. Not Available [facility] [address] [place] [address], [address], 08/05/2024 15:38:07 08/04/19 25 08/05/2024 QUANT IFERO N TB GOLD nil 0.04 IU/mL normal Not Available [facility] [address] [place] [address], [address], 08/05/2024 15:38:07 08/04/19 25 08/05/2024 QUANT IFERO N TB GOLD mitogen nil 6.53 IU/mL normal Not Available [facility] [address] [place] [address], [address], 08/05/2024 15:38:07 08/04/19 25 08/05/2024 QUANT IFERO N TB GOLD TB1 nil <0.00 IU/mL normal Not Available [facility] [address] [place] [address], [address], 08/05/2024 15:38:07 08/04/1908/05/2024 QUANT IFERO N TB GOLD TB2 nil <0.00 IU/mL normal The Nil tube value refle cts the backg round inter feron gamma immun e respo nse of the patie nt's blood sampl e. This value has been subtr acted from the patie nt's displ ayed TB and Mitog en resul ts. Lower than expec shayla resul ts with the Mitog en tube preve nt false -nega tive Quant ifero n readi ngs by detec kieran a patie nt with a poten tial immun e suppr essiv e condi tion and/o r subop timal pre-a nalyt ical speci men handl ing. The TB1 Antig en tube is coate d with the M. tuber culos is-sp ecifi c antig ens desig kvng to elici t respo nses from TB antig en prime d CD4+ helpe r T-lym phocy aníbal. The TB2 Antig en tube is coate d with the M. tuber culos is-sp ecifi c antig ens desig kvng to elici t respo nses from TB antig en prime d CD4+ helpe r and CD8+ cytot oxic T-lym phocy aníbal. For addit ional infor flakita jay e refer to https ://ed ucati on.qu toñoNanosolar. com/f aq/FA Q204 (This link is being provi ded for infor iwona gordon/ educa hector l purpo ses only. ) Not Available [facility] [place], [address], 08/05/2024 15:38:07 08/04/19 25 08/05/2024 ANTI- CCP anti-ccp <16 units normal Refer ence Range Negat angela: <20 Weak Posit angela: 20-39 Moder ate Posit angela: 40-59 Stron g Posit angela: >59 Not Available [facility] [address] [place], [address], 08/05/2024 16:39:40 08/21/19 25 08/20/2024 C REACT ANGELA PROTE IN C reactive protein 10.31 mg/dL 0.00-0 .49 high Not Available [facility] [address] [place], [address], 08/20/2024 19:03:01 08/21/19 25 08/20/2024 ESR, AUTOM ATED ESR, automated 13 mm 0-29 normal Not Available [facility] [address] [place] [address], [phone], 08/20/2024 20:37:18 08/04/19 25 08/03/2024 XR, chest , [address] [address] Patien t Name: HAYLEY A SERINA Patichuy t : [birth year] Patien t Orderi ng Provid er: KEENA [facility] EXAM DATE: 2024 EXAM: XR CHEST PA/LAT CLINIC AL INFORM ATION: Long-t erm drug therap y IMAGES PROVID ED: PA and latera l views of the chest. COMPAR MATILDE: None. FINDIN GS: Heart size is within normal limits . Infilt rate and pleura l reacti on are presen t in the left lung base. Certai nly some of this change may be chroni c and relate d to pleura l parenc hymal scarri ng. The right side shows no airspa ce diseas e. IMPRES VLADIMIR: Coarse densit y in the left base sugges ting infilt rate and pleura l reacti on. Consid er high-r esolut ion CT chest Interp reted By: Diego Longoria MD Electr onical ly Signed By: Diego Longoria MD on 025 2:21 PM [facility] [address] [place] [address], [address], 08/06/2024 14:38:44 08/04/19 25 08/03/2024 XR, ankle , 3 or more view [address] [address] Patien t Name: HAYLEYSHEREE Cheung t : [birth year] Patien t Orderi ng Provid er: KEENA [facility] EXAM DATE: 2024 EXAM: XR LT ANKLE COMPLE TE COMPAR MATILDE: None. HISTOR Y: Left ankle pain. FINDIN GS: The bones of the ankle are normal in alignm ent. There is no eviden ce of fractu re. There is mild spurri ng along the fibula r tip and medial malleo lar tip. The ankle mortis e is congru ent. There is mild to modera te enthes opathi c change about the calcan eus. There is latera l soft tissue swelli ng. IMPRES VLADIMIR: 1. There is soft tissue swelli ng of the left ankle, but there is no discre te fractu re. Interp reted By: Ryan castaneda MD Electr onical ly Signed By: Ryan castaneda MD on 025 2:25 PM [facility] [address], [address], 08/06/2024 14:38:44 Result Notes Documentation Provider Name and Address Organization Details Recorded Time Xr, Chest, 2 View : [address] [address] Patient Name: HAYLEY Quiroga SERINA Patient : 1950 Patient Ordering Provider: KEENA LI EXAM DATE: 08/03/2024 EXAM: XR CHEST PA/LAT CLINICAL INFORMATION: Long-term drug therapy IMAGES PROVIDED: PA and lateral views of the chest. COMPARISON: None. FINDINGS: Heart size is within normal limits. Infiltrate and pleural reaction are present in the left lung base. Certainly some of this change may be chronic and related to pleural parenchymal scarring. The right side shows no airspace disease. IMPRESSION: Coarse density in the left base suggesting infiltrate and pleural reaction. Consider high-resolution CT chest Interpreted By: Diego Longoria MD [facility] 08/06/2024 14:38:44 Xr, Ankle, 3 Or More View : [address] [address] Patient Name: HAYLEY A SERINA Patient : 1950 Patient Ordering Provider: KEENA LI EXAM DATE: 08/03/2024 EXAM: XR LT ANKLE COMPLETE COMPARISON: None. HISTORY: Left ankle pain. FINDINGS: The bones of the ankle are normal in alignment. There is no evidence of fracture. There is mild spurring along the fibular tip and medial malleolar tip. The ankle mortise is congruent. There is mild to moderate enthesopathic change about the calcaneus. There is lateral soft tissue swelling. IMPRESSION: 1. There is soft tissue swelling of the left ankle, but there is no discrete fracture. Interpreted By: Amando Garcia MD [facility] 08/06/2024 14:38:44 Medical Equipment None Reported. Allergies Allergen ID Allergen Name Allergen Category Reaction Reaction Severity Criticality Documentation Date Start Date Code Code System Note Provider Name and Address Organization Details Recorded Time 145528 codeine medicatio n Not available Not available Not available 02/02/20162011 2670 RxNorm Comme nt: Creat ed By: Antonieta moreno; Creat ed Date: 2011 8:33: 42 AM; Not Available [facility] 6 05:52:00 [id number] methotrex ate medicatio n other moderate Not available 08/20/2024 6851 RxNorm KEENA LI MD [address] [place] [address], [address] [place] [address] 16:03:59 Medications Name Sig Start Date Stop Date Status Note LastModified by Organization Details LastModified Time Compound Magic Mouthwash #10 (Diphenydr amine/Nyst atin/Maalo x/Lidocain e 1:1:1:1) Swish 5-10 mL up to 4 times daily as needed 2024 active Not Available Not Available Not Avai lable prednisone 5 mg tablet Take 1 tablet every day by oral route. 2024 active Not Available Not Available Not Avai lable methotrexa te sodium 2.5 mg tablet Take 6 tablets every week by oral route. 08/20 completed Not Available Not Available Not Available Valtrex 1 gram tablet Take 1 tablet every 12 hours by oral route for 7 days. 2024 active Not Available Not Available Not Avai lable folic acid 1 mg tablet Take 1 tablet every day by oral route. 08/20 completed Not Available Not Available Not Available Tricor 145 mg tablet Daily 08/03 completed Duratio n: 10 days;Fr equency : daily;M edicati on Descrip tion: fenofib rate; Dosage: 1; Route:o ral; refills :5; Quantit y:30 tablet Not Available Not Available Not Available atorvastat in active Not Available Not Available Not Available levothyrox ine active Not Available Not Available Not Available prednisone active Not Available Not Av ailable Not Available bisoprolol fumarate active Not Available Not Available Not Available aspirin 81 mg capsule Take 1 capsule every day by oral route. active Not Available Not Available No t Available Vitals Date Recorded Body weight Body mass index (BMI) Body height Heart rate Respiratory rate Oxygen saturation Oxygen saturation in Arterial blood by Pulse oximetry Systolic blood pressure Diastolic blood pressure Provider Name and Address Organization Details Last Updated DateTime 91736.6 7 g 23.9 kg/m2 167.64 cm 61 /min 14 /min 99 % 99 % 122 mm[Hg] 60 mm[Hg] [facility] 13:14:44 Date Recorded Body height Body mass index (BMI) Body weight Respiratory rate Heart rate Oxygen saturation Oxygen saturation in Arterial blood by Pulse oximetry Systolic blood pressure Diastolic blood pressure Provider Name and Address Organization Details Last Updated DateTime 167.64 cm 23.6 kg/m2 48631.4 9 g 14 /min 87 /min 97 % 97 % 110 mm[Hg] 70 mm[Hg] [facility] 15:32:24 Social History Question Answer Notes LastModified by Organizat ion Details LastModified Time Tobacco Smoking Status Never Smoker [facility] 08/03/2024 13:13:20 What Was The Date Of Your Most Recent Tobacco Screening? 08/20/2024 Information not available 08/20/2024 Sex: Unknown Functional Status Question Answer Note LastModified by Organizat ion Details LastModified Time Do you use any illicit or recreational drugs? No Information not available 08/03/2024 What is your level of alcohol consumption? None Information not available 08/03/2024 Mental Status None recorded. Family History Nothing Reported. Medical History No medical history recorded. Gynecological HistoryNo gynecological history recorded. Obstetrics History GPAL:G 0 P 0 0 0 0 Past Encounters Encounter ID Performer Location Encounter Start Date Encounter Closed Date Diagnosis/Indication Diagnosis SNOMED-CT Code Diagnosis ICD10 Code Diagnosis Note [id number] KEENA LI MD [facility] [address] [place] [address] 08/03/2024 12:39:40 08/07/2024 04:36:45 Seropositive rheumatoid arthritis 662696367 M05.9 + RF, + synovitis - additional labs as below- prednisone 20 mg tapering by 5 mg every 5 days till off- start methotrexa te 15 mg (6 tablets) weekly- daily 1 mg folic acid- CXR- request last XR of the hands and cervical spine Anemia 113888246 D64.89 May be due to longstandi ng inflammati on - check CBC today Long-term current use of drug therapy 003306105 Z79.899 - labs every 4 weeks x 3 then every 3 months thereafter - We discussed the possible side effects of methotrexa te including, but not limited to: oral ulcers, nausea, diarrhea, rash, increased infection risk, bone marrow suppressio n, hepatitis, pulmonary toxicity. We discussed the need to avoid alcohol and to have regulatory lab monitoring done while taking methotrexa te. We discussed that live virus vaccines are contraindi cated while taking methotrexa te. Fatigue 95024141 R53.82 Fall W19.XXXA - XR of the left ankle today [id number] KEENA LI MD [facility] [address] [place] [address] 08/20/2024 14:01:20 08/20/2024 20:38:23 Seropositive rheumatoid arthritis 394534897 M05.9 + RF, + synovitis - prednisone 20 mg tapering by 5 mg every 5 days till off-- finish taper- continue prednisone 5 mg daily- CXR with course density in the left lower base/pleur al thickening -- high res CT has been ordered and she is scheduled for this next week- make sure up to date with cancer screening with PCP- low threshold to send to hematology for further evaluation of pancytopen ia Anemia 250470029 D64.89 May be due to longstandi ng inflammati on - check CBC today Long-term current use of drug therapy 179928605 Z79.899 - stopped methotrexa te- will bring back when resolved to discuss next steps when mucositis is resolved Fatigue 12706406 R53.82 - labs today Stomatitis 95534755 K12. 30 This is a dramatic reaction to methotrexa te. She has had 2 doses and her last dose was 08/11. Symptoms started 08/12, so clearly I think this is the culprit. I am concerned given extensive purpura that she has worsening pancytopen ia-- particular ly thrombocyt openia. - will get labs today- pcp has already given her leucovorin rescue- give valtrex 1 gram twice per day for 7 days- magic mouthwash- asked her to put on vaseline to keep the lips moist Health Concerns Section Related Observation LastModified by Organization Detai ls LastModified Time None Recorded Concern Status LastModified by Organization Details LastModified Time None Recorded Advance Directives Directive None Recorded Payers Insurance Date Sequence Insurance Name Policy Number Policy Roland Covered Member ID Roland Member ID Guarantor Name 08/03/2024 2 [place] Hayley A Serina [id number] Hayley A Serina 08/03/2024 1 [employer] (MEDICARE REPLACEMENT/A DVANTAGE - HMO) [id number] Hayley Serina [id number] Hayley A [place] 08/19/2024 1 [employer] (MEDICARE REPLACEMENT/A DVANTAGE - PPO) Hayley A Serina [id number] Hayley A [place] Notes Date Note Type Note Provider Name and Address Organization Details Recorded Time 08/03/2024 text/html Hayley Hutson is a 74 yo woman with past medical history of hypertension, hyperlipidemia, coronary artery disease status post [place], hypothyroidism who presents for further evaluation of seropositive rheumatoid arthritis. She says that this joint pain and swelling started December,. She went to her primary care who felt that this was consistent with osteoarthritis. She ultimately had pain that got so bad that she presented to the emergency room. They suspected rheumatoid arthritis and gave her prednisone.Prednison e took away the pain. Her primary care told her that she cannot have prednisone all the time. Can't have it because of the heart and the bones. Sometimes in the hands, legs, feet. She says it does seem to move around.Arms are week. Lots of fatigue. She has had a heart attack and had a blockage. She goes to see the ged instructor every 6 months. Took prednisone yesterday. She had labs sent with her referral which were notable for mild pancytopenia with white blood cell count 3.9, hemoglobin 11.2, platelets 103. She had elevated inflammatory markers ESR 39 and CRP 38.1 (0-4), CKD with creatinine 1.3, elevated CK1 34. + RF IgM 21, + RF IgA 9. KEENA LI MD [address] [place] [address], [phone], [facility] 08/06/2024 20:07:45 08/20/2024 text/html Hayley Hutson is a 74 yo woman with past medical history of hypertension, hyperlipidemia, coronary artery disease status post [place], hypothyroidism who presents for further evaluation of seropositive rheumatoid arthritis. She says that this joint pain and swelling started December,. She went to her primary care who felt that this was consistent with osteoarthritis. She ultimately had pain that got so bad that she presented to the emergency room. They suspected rheumatoid arthritis and gave her prednisone.Prednison e took away the pain. Her primary care told her that she cannot have prednisone all the time. Can't have it because of the heart and the bones. Sometimes in the hands, legs, feet. She says it does seem to move around.Arms are week. Lots of fatigue. She has had a heart attack and had a blockage. She goes to see the ged instructor every 6 months. Took prednisone yesterday. She had labs sent with her referral which were notable for mild pancytopenia with white blood cell count 3.9, hemoglobin 11.2, platelets 103. She had elevated inflammatory markers ESR 39 and CRP 38.1 (0-4), CKD with creatinine 1.3, elevated CK1 34. + RF IgM 21, + RF IgA 9. We started her on 15 mg methotrexate weekly due to concern for rheumatoid arthritis. She took her second dose on 08/11 and suddenly got oral ulcerations and had diffuse purpura and a lip hematoma. She states that the mouth is so painful she cannot eat. Drinking is difficult. She feels horrible.She saw her PCP who put her on a leucovorin rescue. She has been given oragel.Her labs when I saw her prior to methotrexate but after steroids, she had an improved CRP, stable creatinine around 1.4, hemoglobin of 9.2, and platelets of 52.Today, I am concerned about worsening platelets with the methotrexate reaction. Her liver function tests were normal.She denies fever, chills. She states she feels horrible.Bruising around her left eye after her fall has improved slightly, but still present. KEENA LI MD [address] [place] [address], [phone], [facility] 08/20/2024 20:38:21 OBGyn Episode No OBEpisode recorded.
--- OUTSIDE RECORDS SUMMARY | 2024-08-20 20:42 | XMS_ITS | Continuity of Care Document ---
Author Organization [facility], RHEUMATOLOGY [place] Address [address] [place] [address] Care Team Providers Care Pot Holder Binder Name Role Phone BETHANY WOLFE Referring Provider BETHANY WOLFE Primary Care Provider KEENA LI Fire Suppression Captain [phone] Assessment No assessment recorded. Plan of Treatment [...] Lab CBC w/ auto diff 2024 025 [facility], [address] [place] [address], [address], 08/03/2024 15:27:43 CMP, serum or plasma 2024 025 [facility], [address] [place] [address], [address], 08/03/2024 15:48:05 ESR (erythro cyte sediment ation rate), blood 2024 025 [facility], [address] [place] [address], [address], 08/03/2024 18:34:41 C reactive protein, QN, serum or plasma 2024 025 [facility], [address] [place] [address], [address], 08/03/2024 15:48:02 vitamin D, 25-hydro xy, total, serum 2024 025 [facility], [address] [place] [address], [address], 08/03/2024 15:34:19 CK (creatin e kinase), total, serum 2024 025 [facility], [address] [place] [address], [address], 08/03/2024 15:48:03 vitamin B12, serum 2024 025 [facility], [address] [place] [address], [address], 08/03/2024 15:34:21 folate, serum 2024 025 [facility], [address] [place] [address], [address], 08/03/2024 15:34:18 TSH, serum, reflex free T4 2024 025 [facility], [address] [place] [address], [address], 08/03/2024 15:29:12 ccp (cyclic citrulli nated peptide) iga+igg, serum 2024 025 [facility], [address] [place] [address], [address], 08/05/2024 16:39:40 CBC w/ auto diff [address], [address] [place] [address], [address], 08/10/2024 08:04:48 CMP, serum or plasma [address] [facility], [address] [place] [address], [address], 08/10/2024 08:04:48 ESR (erythro cyte sediment ation rate), blood [address] [facility], [address] [place] [address], [address], 08/10/2024 08:04:48 C reactive protein, QN, serum or plasma [address] [facility], [address] [place] [address], [address], 08/10/2024 08:04:48 Mycobact erium tubercul osis stimulat ed gamma interfer on, qual, blood 2024 [facility], [address] [place] [address], [address], 08/05/2024 15:38:07 hepatiti s (A+B+C) panel, serum 2024 [facility], [address] [place] [address], [address], 08/03/2024 15:28:56 Referral None recorded . Procedures None recorded . Surgeries None recorded . Imaging XR, ankle, 3 or more view 2024 [facility], [address] [place] [address], [address], 08/03/2024 14:30:45 XR, chest, 2 view 2024 [facility], [address] [place] [address], [address], 08/03/2024 14:26:18 Medication Orders predniso ne 5 mg tablet 2024 025 [facility], [address], [address], 08/03/2024 13:45:28 methotre xate sodium 2.5 mg tablet 2024 025 [facility], [address], [address], 08/20/2024 15:33:39 folic acid 1 mg tablet 2024 025 [facility], [address], [address], 08/20/2024 15:33:44 Patient TargetsNo targets recorded. Patient Instructions Encounter Date Encounter Id Patient Instructions Last Modified By Organization Details Last Modified Time 08/03/2024 [id number] medical record request* - Please send the X rays on the hands and the cervical spine [email or web address] Not available 08/10/2024 08:04:54 I spent >60 minutes caring for the patient today with counseling, coordinating care, extensive review of outside records, medication management, and documentation. [email or web address] Not available 08/06/2024 20:07:40 Reason for Referral None Reported. Results Created Date Observation Date Name Description Value Unit Range Abnormal Flag Note LastModifiedBy Organization Detail LastModifiedTime 08/04/1908/03/2024 XR, chest , [address] [address] Patien t Name: KHUSHI UHTSON Patichuy t : [birth year] Patien t [...] ly Signed By: Diego Longoria MD on 2:21 PM [facility] [address], [address], 08/06/2024 14:38:44 08/04/1908/03/2024 XR, ankle , 3 or more view [place] [id number] Patien t Name: KHUSHI HUTSON Patien t : [birth year] Patien t Orderi [...] ly Signed By: Ryan castaneda MD on 2:[address] [facility] [address], [address], 08/06/2024 14:38:44 Result Notes Documentation Provider Name and Address Organization Details Recorded Time Xr, Chest, 2 View : [address] [id number] Patient Name: KHUSHI A HARESH Patient : 1950 Patient Ordering Provider: KEENA [...] CT chest Interpreted By: Diego Longoria MD [facility] 08/06/2024 14:38:44 Xr, Ankle, 3 Or More View : [address] [address] Patient Name: KHUSHI Quiroga HARESH Patient : 1950 Patient Ordering Provider: KEENA [...] discrete fracture. Interpreted By: Amando Garcia MD [facility] 08/06/2024 14:38:44 Medical Equipment None Reported. Allergies Allergen ID Allergen Name Allergen Category Reaction Reaction Severity Criticality Documentation Date Start Date Code Code System Note Provider Name and Address Organization Details Recorded Time 110375 codeine medicatio n Not available Not available Not available 02/02/20162011 2670 RxNorm Comme nt: Creat ed By: Antonieta Alcala ed Date: 2011 8:33: 42 AM; Not Available [facility] 6 05:52:00 297101 methotrex ate medicatio n other moderate Not available 08/20/2024 6851 RxNorm KEENA LI MD [address] [place] [address], [address] , [facility] 16:03:59 Medications Name Sig Start Date Stop [...] and Address Organization Details Last Updated DateTime 24225.6 7 g 23.9 kg/m2 167.64 cm 61 /min 14 /min 99 % 99 % 122 mm[Hg] 60 mm[Hg] Ramonagladys Townsend [facility] 13:14:44 Social History Question Answer Notes LastModified by Organizat ion Details LastModified Time Tobacco Smoking Status Never Smoker [facility] 08/03/2024 13:13:20 What Was The Date [...] SNOMED-CT Code Diagnosis ICD10 Code Diagnosis Note [id number] KEENA LI MD [facility] [address] [place] [address] 08/03/2024 12:39:40 08/07/2024 04:36:45 Seropositive rheumatoid arthritis 286712377 M05.9 + RF, + synovitis - additional labs as below- prednisone 20 mg tapering by 5 mg every 5 days till off- start methotrexa te 15 mg (6 tablets) weekly- daily 1 mg folic acid- CXR- request last XR of the hands and cervical spine Anemia 210363002 D64.89 May be due to longstandi ng inflammati on - check CBC today Long-term current use of drug therapy 037945559 Z79.899 - labs every 4 weeks x [...] contraindi cated while taking methotrexa te. Fatigue 74044863 R53.82 Fall W19.XXXA - XR of the left ankle today Health Concerns Section Related Observation LastModified by Organization Detai ls LastModified Time None Recorded Concern Status LastModified by Organization Details LastModified Time None Recorded Payers Encounter Date Sequence Insurance Name Policy Number Policy Roland Covered Member ID Roland Member ID Guarantor Name 08/03/2024 1 [employer] (MEDICARE REPLACEMENT/A DVANTAGE - PPO) Khushi Hutson [id number] Khushi Hutson Notes Date Note Type Note Provider Name and Address Organization Details Recorded Time 08/03/2024 text/html Khushi Hutson is a 74 yo woman with past medical history of hypertension, hyperlipidemia, coronary artery disease status post [place], hypothyroidism who presents for further evaluation of [...] a blockage. She goes to see the wallpaper installer every 6 months. Took prednisone yesterday. She had labs sent with her referral which were notable for mild pancytopenia with white blood cell count 3.9, hemoglobin 11.2, platelets 103. She had elevated inflammatory markers ESR 39 and CRP 38.1 (0-4), CKD with creatinine 1.3, elevated CK1 34. + RF IgM 21, + RF IgA 9. KEENA LI MD [address] [place], [address], [facility] 08/06/2024 20:07:45 OBGyn Episode No OBEpisode recorded.
--- OUTSIDE RECORDS SUMMARY | 2024-08-20 20:42 | XMS_ITS | Continuity of Care Document ---
Author Organization [facility], RHEUMATOLOGY [facility] Address [address] [place] [address] Care Team Providers Care Almond Cutting Machine Tender Name Role Phone BETHANY WOLFE Referring Provider [phone] BETHANY WOLFE Primary Care Provider [phone] KEENA LI Marriage And Family Teacher [phone] Assessment No assessment recorded. Plan of Treatment [...] Lab CBC w/ auto diff 2024 025 [facility], [address] [place] [address], [address], 08/20/2024 16:10:41 CMP, serum or plasma 2024 025 [facility], [address] [place] [address], [address], 08/20/2024 19:03:00 Referral None recorded . Procedures None recorded . Surgeries None recorded . Imaging None recorded . Medication Orders predniso ne 5 mg tablet 2024 025 [facility], [address], [address], 08/20/2024 16:09:49 Valtrex 1 gram tablet 2024 025 [facility], [address], [address], 08/20/2024 16:09:47 Compound Magic Mouthwas h #10 (Dipheny dramine/ Nystatin /Maalox/ Lidocain e 1:1:1:1) 2024 025 [facility], [address], [address], 08/20/2024 16:09:46 Patient TargetsNo targets recorded. Patient InstructionsNo instructions recorded. Reason for Referral None Reported. Results Created Date Observation Date Name Description Value Unit Range Abnormal Flag Note LastModifiedBy Organization Detail LastModifiedTime 08/04/1908/03/2024 XR, chest , [address] [address] Patien t Name: KHUSHI HUTSON Patien t [...] Diego Longoria MD on 025 2:21 PM [facility] [address] [place], [address], 08/06/2024 14:38:44 08/04/19 25 08/03/2024 XR, ankle , 3 or more view [address] [address] Patichuy murray Name: KHUSHI murray : [birth year] Patichuy t Orderi ng Provid er: KEENA MIDDLETON [...] Ryan castaneda MD on 025 2:25 PM [facility] [address], [address], 08/06/2024 14:38:44 Result Notes None recorded. Medical Equipment None Reported. Allergies Allergen ID Allergen Name Allergen Category Reaction Reaction Severity Criticality Documentation Date Start Date Code Code System Note Provider Name and Address Organization Details Recorded Time 264122 codeine medicatio n Not available Not available Not available 02/02/20162011 2670 RxNorm Comme nt: Creat ed By: Antonieta moreno; Fredrick ed Date: 2011 8:33: 42 AM; Not Available [facility] 6 05:52:00 494479 methotrex ate medicatio n other moderate Not available 08/20/2024 6851 RxNorm KEENA LI MD [address] [place] [address], [address], [facility] 16:03:59 Medications Name Sig Start [...] No t Available Vitals Date Recorded Body height Body mass index (BMI) Body weight Respiratory rate Heart rate Oxygen saturation Oxygen saturation in Arterial blood by Pulse oximetry Systolic blood pressure Diastolic blood pressure Provider Name and Address Organization Details Last Updated DateTime 5 167.64 cm 23.6 kg/m2 45942.4 9 g 14 /min 87 /min 97 % 97 % 110 mm[Hg] 70 mm[Hg] [facility] 15:32:24 Social History Question Answer Notes LastModified by Organizat ion Details LastModified Time Tobacco Smoking Status Never Smoker Ramona [facility] 08/03/2024 13:13:20 What Was The Date Of [...] SNOMED-CT Code Diagnosis ICD10 Code Diagnosis Note [id number] KEENA LI MD RHEUMATOL [facility] [address] [place] [address] 08/03/2024 12:39:40 08/07/2024 04:36:45 Seropositive rheumatoid arthritis 823064546 M05.9 + RF, + synovitis - additional labs as below- prednisone 20 mg tapering by 5 mg every 5 days till off- start methotrexa te 15 mg (6 tablets) weekly- daily 1 mg folic acid- CXR- request last XR of the hands and cervical spine Anemia 802846641 D64.89 May be due to longstandi ng inflammati on - check CBC today Long-term current use of drug therapy 191353306 Z79.899 - labs every 4 weeks x [...] contraindi cated while taking methotrexa te. Fatigue 49103206 R53.82 Fall W19.XXXA - XR of the left ankle today [id number] KEENA LI MD [facility]OL [facility] [address] [place] [address] 08/20/2024 14:01:20 08/20/2024 20:38:23 Seropositive rheumatoid arthritis 232257189 M05.9 + RF, + synovitis - prednisone [...] for further evaluation of pancytopen ia Anemia 834839798 D64.89 May be due to longstandi ng inflammati on - check CBC today Long-term current use of drug therapy 534743762 Z79.899 - stopped methotrexa te- will bring back when resolved to discuss next steps when mucositis is resolved Fatigue 78354109 R53.82 - labs today Stomatitis 62685896 K12. 30 This is a dramatic reaction [...] Member ID Roland Member ID Guarantor Name 08/20/2024 1 [employer] (MEDICARE REPLACEMENT/A DVANTAGE - PPO) Khushi Hutson [id number] Khushi A Dumas Notes Date Note Type Note Provider Name and Address Organization Details Recorded Time 08/20/2024 text/html Khushi Hutson is a 74 yo woman with past medical history of hypertension, hyperlipidemia, coronary artery disease status post [place], hypothyroidism who presents for further evaluation of [...] a blockage. She goes to see the territory sales executive every 6 months. Took prednisone yesterday. She [...] slightly, but still present. KEENA LI MD [address] [place], [address], [facility] 08/20/2024 20:38:21 OBGyn Episode No OBEpisode recorded.
--- NOTE | 2024-08-20 20:47 | ED_ITS ---
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 Patient has a known history of thrombocytopenia as well as rheumatoid arthritis. Patient has recently been started on methotrexate and had routine blood work done by her cloth bleaching range back tender and around 8 PM this evening was told to come to the ER for a blood transfusion. Patient does not know what her lab results showed. Patient herself has no shortness of breath chest pain fever chills hemoptysis hematochezia melena nausea vomit diarrhea. She did have a reaction to the methotrexate during the second week and it was thus stopped. Related Data Home Medications ?Medication ?Instructions ?Recorded ?Confirmed aspirin 81 mg tablet,delayed 81 mg PO ONCE 04/10/17 release (Adult Low Dose Aspirin) atorvastatin 20 mg tablet 20 mg PO HS 08/20/24 5 bisoprolol fumarate 5 mg tablet 2.5 mg PO DAILY 08/20/24 levothyroxine 88 mcg tablet 88 mcg PO DAILY 08/20/24 0 08/20/24 losartan 100 mg tablet 100 mg PO DAILY 08/20/24 Previous Rx's ?Medication ?Instructions ?Recorded prednisone 20 mg tablet 20 mg PO BID #14 tabs leucovorin calcium 15 mg tablet 15 mg PO DAILY #7 tabs 08/17/24 Allergies Allergy/AdvReac Type Severity Reaction Status Date / Time codeine (CODEINE) Allergy Mild NA-NAUSEA/V Verified 06/16/24 09:08 OMITING PFSH <HARVEY Marrufo - Last Filed: 08/20/24 21:58> [facility] Disclaimer: The information contained in this section may have been updated after the patient was seen, as this information can be updated by other users. Medical History Cough Patient report dry cough, patient was dx allergic rhinitis on Wed will add flonase and prescribe Benzonate for cough and strict follow up with PCP if symptoms persist or worsen Hypothyroidism History of myocardial infarct at age greater than 60 years Skin lesion of upper extremity Thrombocytopenia Past heart attack Surgical History History of right heart catheterization H/O tubal ligation Family History Other Family history of cancer Family history of stroke Social History (Updated 08/20/24 @ 23:19 by Christine Gregory RN) Smoking Status: Never smoker alcohol intake: never substance use type: denies use current occupational status: retired Travel in the last 8 weeks?: None Have you lived/traveled outside US in past 30 days?: No Contact w/someone who lives/traveled outside US past 30 days?: No Exposure to someone with infectious disease in past 14 days?: No Do you have a fever (greater than 100.4 F or 38 C)?: No Have you tested positive for COVID-19?: No Exposed to someone with COVID-19 in past 14 days?: No Do you have a sore throat?: No Do you have a cough?: No Do you have any weakness?: No Do you have any diarrhea?: No Are you experiencing any unusual bleeding?: No Do you have any muscle aches/pain?: No Do you have any abdominal pain?: No Are you experiencing loss of taste or smell?: No Other Medical History Have you received the Flu Vaccine for this season: No Have you received the Pneumonia Vaccine: No <HARVEY Marrufo - Last Filed: 08/20/24 21:58> ROS Obtained: Yes Systems reviewed as appropriate & no additional complaints except as documented Physical Exam <HARVEY Marrufo - Last Filed: 08/20/24 21:58> General General appearance: alert and in no apparent distress Respiratory Respiratory exam: Present normal lung sounds bilaterally Cardiovascular Cardiovascular exam: Present regular rate Neurological Exam Neurological exam: Present alert, oriented X3 and CN II-XII intact Medical Decision Making <HARVEY Marrufo - Last Filed: 08/20/24 21:58> Medical Records Medical records reviewed: Yes I reviewed the patient's medical records. Screening: Per USPSTF and CDC recommendations, given the prevalence of disease in our region, it is our hospital?s policy to screen for HIV and viral Hepatitis for all patients aged 18 and over and those with ongoing risk factors. Dominik Inquiry Pt receiving controlled substance: No Vital Signs: 08/20/24 20:55 08/20/24 21:28 08/20/24 21:30 Temperature 98.4 F Temperature Source Temporal Artery Scan Pulse Rate 79 78 Pulse Rate [Right] 82 Respiratory Rate 16 Blood Pressure 113/71 129/62 Blood Pressure [Right Arm] 133/67 Blood Pressure Mean [Right Arm] 89 02 Sat by Pulse Oximetry 98 96 96 Oxygen Delivery Method Room Air 08/20/24 22:00 08/20/24 22:05 08/20/24 22:30 Temperature Temperature Source Pulse Rate 77 79 Pulse Rate [Right] Respiratory Rate Blood Pressure 130/65 117/52 L Blood Pressure [Right Arm] Blood Pressure Mean [Right Arm] 02 Sat by Pulse Oximetry 95 97 Oxygen Delivery Method Room Air 08/20/24 22:50 Temperature 98.1 F Temperature Source Pulse Rate 79 Pulse Rate [Right] Respiratory Rate 20 Blood Pressure 117/52 L Blood Pressure [Right Arm] Blood Pressure Mean [Right Arm] 02 Sat by Pulse Oximetry Oxygen Delivery Method Room Air Lab Data Lab results reviewed: Yes I reviewed the patient's lab results. Lab Results 08/20/24 21:00: WBC 2.0 L, RBC 2.11 L, Hct 17.3 L*, MCV 82.0, MCH 27.0, MCHC 32.9, RDW 18.1 H, Plt Count 53 L, MPV 13.3 H, Neut % (Auto) 67.0, Lymph % (Auto) 19.3, [place] % (Auto) 10.7 H, Eos % (Auto) 0.5, Baso % (Auto) 0.0 L, Neut # (Auto) 1.3 L, Lymph # (Auto) 0.4 L, [place] # (Auto) 0.2, Eos # (Auto) 0.0, Baso # (Auto) 0.0, Sodium 130 L, Potassium 3.1 L, Chloride 104, Carbon Dioxide 24, Anion Gap 5.1, BUN 16, Creatinine 1.20 H, Estimated Creat Clear 44, Estimated GFR 44 L, E st GFR ( Amer) 53 L, Glucose 124 H, Calcium 8.8, Total Bilirubin 0.7, AST 20, ALT 24, Alkaline Phosphatase 67, Total Protein 5.8 L, Albumin 2.9 L, Globulin 2.9, Albumin/Globulin Ratio 1.0 L, Blood Type A Negative, Antibody Screen Negative, Crossmatch (AHG) See Detail 08/20/24 21:00 08/20/24 21:00 Orders (Tests/Meds): ED MEDICATIONS Generic Name Dose Route Start Last Admin Trade Name Freq PRN Reason Stop Dose Admin Acetaminophen 650 mg 08/20/24 22:37 Acetaminophen 325mg Tab PO 09/19/24 22:36 Q4HP PRN Fever or Mild Pain (1-3) Sodium Chloride 250 mls @ 25 mls/hr 08/20/24 22:00 Sod Chlor 0.9% 250ml Bag IV 08/21/24 21:59 .Q10H JEN Ondansetron HCl 4 mg 08/20/24 22:37 Ondansetron 4mg/2ml Vial IV 09/19/24 22:36 Q8HP PRN Nausea Potassium Chloride 40 meq 08/21/24 02:00 Potassium Chloride 20meq Tab PO 08/21/24 02:01 ONCE ONE Potassium Chloride 20 meq 08/21/24 06:00 Potassium Chloride 20meq Tab PO 08/21/24 06:01 ONCE ONE Discontinued Medications Generic Name Dose Route Start Last Admin Trade Name Freq PRN Reason Stop Dose Admin Potassium Chloride 60 meq 08/20/24 21:37 08/20/24 22:41 Potassium Chloride 20meq Tab PO 08/20/24 21:38 60 meq ONCE ONE Administration ORDERS Category Date Time Status Transfuse RBC's [Red Blood Cells] Stat K 08/20/24 21:00 Results Type and Screen Stat K 08/20/24 21:00 Results CBC w/Auto Diff [Complete Blood Count Auto Diff] Stat Lab 08/20/24 21:00 Results CMP [Comprehensive Metabolic Panel] Stat Lab 08/20/24 21:00 Completed Medical Decision Narrative: In summary patient is a 74-year-old female who presents to the emergency department for evaluation of abnormal lab results. Patient is hemodynamically stable upon arrival, febrile. Exam is remarkable for obvious purple lesions but patient has clear breath sounds abdomen soft nontender no rebound or guarding no rigidity no active bleeding. Differential diagnosis includes thrombocytopenia versus acute on chronic anemia. Initial workup will be conducted with hematologic labs type and screen. Initial interventions will defer until we have actual laboratory results. Initial workup reviewed by me and her hemoglobin is 5.7 and hematocrit 17 platelets 53. Given the length of time and the patient's age I have had indirect discussion with hospital medicine regarding patient CASTANEDA presentation and findings and she will be admitted for further evaluation and care and blood transfusion. I have ordered the first unit of blood here. <Ovidio Arrington MD - Last Filed: 08/20/24 23:24> Vital Signs: 08/20/24 20:55 08/20/24 21:28 08/20/24 21:30 Temperature 98.4 F Temperature Source Temporal Artery Scan Pulse Rate 79 78 Pulse Rate [Right] 82 Respiratory Rate 16 Blood Pressure 113/71 129/62 Blood Pressure [Right Arm] 133/67 Blood Pressure Mean [Right Arm] 89 02 Sat by Pulse Oximetry 98 96 96 Oxygen Delivery Method Room Air 08/20/24 22:00 08/20/24 22:05 08/20/24 22:30 Temperature Temperature Source Pulse Rate 77 79 Pulse Rate [Right] Respiratory Rate Blood Pressure 130/65 117/52 L Blood Pressure [Right Arm] Blood Pressure Mean [Right Arm] 02 Sat by Pulse Oximetry 95 97 Oxygen Delivery Method Room Air 08/20/24 22:50 Temperature 98.1 F Temperature Source Pulse Rate 79 Pulse Rate [Right] Respiratory Rate 20 Blood Pressure 117/52 L Blood Pressure [Right Arm] Blood Pressure Mean [Right Arm] 02 Sat by Pulse Oximetry Oxygen Delivery Method Room Air Lab Data Lab Results 08/20/24 21:00: WBC 2.0 L, RBC 2.11 L, Hct 17.3 L*, MCV 82.0, MCH 27.0, MCHC 32.9, RDW 18.1 H, Plt Count 53 L, MPV 13.3 H, Neut % (Auto) 67.0, Lymph % (Auto) 19.3, [place] % (Auto) 10.7 H, Eos % (Auto) 0.5, Baso % (Auto) 0.0 L, Neut # (Auto) 1.3 L, Lymph # (Auto) 0.4 L, [place] # (Auto) 0.2, Eos # (Auto) 0.0, Baso # (Auto) 0.0, Sodium 130 L, Potassium 3.1 L, Chloride 104, Carbon Dioxide 24, Anion Gap 5.1, BUN 16, Creatinine 1.20 H, Estimated Creat Clear 44, Estimated GFR 44 L, E st GFR ( Amer) 53 L, Glucose 124 H, Calcium 8.8, Total Bilirubin 0.7, AST 20, ALT 24, Alkaline Phosphatase 67, Total Protein 5.8 L, Albumin 2.9 L, Globulin 2.9, Albumin/Globulin Ratio 1.0 L, Blood Type A Negative, Antibody Screen Negative, Crossmatch (AHG) See Detail Orders (Tests/Meds): ED MEDICATIONS Generic Name Dose Route Start Last Admin Trade Name Freq PRN Reason Stop Dose Admin Acetaminophen 650 mg 08/20/24 22:37 Acetaminophen 325mg Tab PO 09/19/24 22:36 Q4HP PRN Fever or Mild Pain (1-3) Sodium Chloride 250 mls @ 25 mls/hr 08/20/24 22:00 Sod Chlor 0.9% 250ml Bag IV 08/21/24 21:59 .Q10H EJN Ondansetron HCl 4 mg 08/20/24 22:37 Ondansetron 4mg/2ml Vial IV 09/19/24 22:36 Q8HP PRN Nausea Potassium Chloride 40 meq 08/21/24 02:00 Potassium Chloride 20meq Tab PO 08/21/24 02:01 ONCE ONE Potassium Chloride 20 meq 08/21/24 06:00 Potassium Chloride 20meq Tab PO 08/21/24 06:01 ONCE ONE Discontinued Medications Generic Name Dose Route Start Last Admin Trade Name Freq PRN Reason Stop Dose Admin Potassium Chloride 60 meq 08/20/24 21:37 08/20/24 22:41 Potassium Chloride 20meq Tab PO 08/20/24 21:38 60 meq ONCE ONE Administration ORDERS Category Date Time Status Transfuse RBC's [Red Blood Cells] Stat [facility] 08/20/24 21:00 Results Type and Screen Stat [facility] 08/20/24 21:00 Results CBC w/Auto Diff [Complete Blood Count Auto Diff] Stat Lab 08/20/24 21:00 Results CMP [Comprehensive Metabolic Panel] Stat Lab 08/20/24 21:00 Completed Medical Decision Narrative: In summary patient is a 74-year-old female who presents to the emergency department for evaluation of abnormal lab results. Patient is hemodynamically stable upon arrival, febrile. Exam is remarkable for obvious purple lesions but patient has clear breath sounds abdomen soft nontender no rebound or guarding no rigidity no active bleeding. Differential diagnosis includes thrombocytopenia versus acute on chronic anemia. Initial workup will be conducted with hematologic labs type and screen. Initial interventions will defer until we have actual laboratory results. Initial workup reviewed by me and her hemoglobin is 5.7 and hematocrit 17 platelets 53. Given the length of time and the patient's age I have had indirect discussion with hospital medicine regarding patient CASTANEDA presentation and findings and she will be admitted for further evaluation and care and blood transfusion. I have ordered the first unit of blood here. I was consulted by the ROSAS, and we discussed the complexity of the problems being addressed.I approved the treatment and management plan for this patient?s care in the Emergency Department, thus performing a substantive portion of the medical decision making.Signed, MD NAVDEEP MurrayA Critical Care <HARVEY Marrufo - Last Filed: 08/20/24 21:58> Critical Care Time Critical Care Time: Yes Attestation: On 08/20/24, the high probability of a clinically significant, sudden or life threatening deterioration of the following system(s) required my full and direct attention, intervention and personal management. The time I documented below is in addition to time spent performing reported procedures but includes the following listed in this critical care notation. Total Time Total Critical Care Time: 30
--- NOTE | 2024-08-20 21:01 | PC.NURSE ---
pt does report an allergic reaction due to a medication given by the rheumotologist causing a reaction to her bottom lip. pt is unable to remember the name of the medication, pt stated it was methyl something .
[2024-08-20 21:16] LABS: Eosinophils % 0.5 % (0.1-12.0); Immature Granulocytes # 0.05 10^3uL; Immature Granulocytes % 2.5 %; Lymphocytes # 0.4 K/mm3 (0.7-4.5); Lymphocytes % 19.3 % (10-50); Mean Corpuscular HGB Conc 32.9 g/dL (31.8-35.4); Mean Platelet Volume 13.3 fl (7.4-10.4); Monocytes # 0.2 K/mm3 (0.1-1.0); Monocytes % 10.7 % (1.7-9.3); Neutrophils # 1.3 K/mm3 (1.8-7.8); Nucleated Red Blood Cells # 0.02 10^3/uL; Platelet Count 53 K/mm3 (142-424); Red Blood Count 2.11 M/mm3 (4.20-5.40); Red Cell Distribution Width 18.1 % (11.5-17.5); Red Cell Distribution Width-SD 46.4 fL
[2024-08-20 21:26] LABS: Alanine Aminotransferase 24 U/L (12-78); Albumin Level 2.9 g/dl (3.5-5.0); Alkaline Phosphatase 67 U/L (38-126); Anion Gap 5.1 mEq/L (5-15); Aspartate Amino Transferase 20 U/L (14-36); Bilirubin,Total 0.7 mg/dl (0.2-1.3); Blood Urea Nitrogen 16 mg/dl (7-17); Calcium 8.8 mg/dl (8.4-10.2); Carbon Dioxide 24 mmol/L (22.0-30.0); Chloride 104 mmol/L (98-107); Creatinine Clearance Estimated 44 mL/min (50-200); Estimated Glomerular Filt Rate 44 ml/min (>60); GFR (African American) 53 ML/MIN (>60); Globulin 2.9 g/dL (1.3-3.2); Glucose 124 mg/dl (74-100); Potassium 3.1 mmoL/L (3.5-5.1); Sodium 130 mmol/L (136-145); Total Protein,Serum 5.8 g/dl (6.3-8.2)
[2024-08-20 21:40] LABS: Hematocrit 17.3 % (37.0-47.0)
[2024-08-20 21:42] LABS: MANUAL DIFFERENTIAL MANUAL DIFFERENTIAL (MANUAL DIFF)
--- NOTE | 2024-08-20 21:57 | PC.NURSE ---
called for admission
--- NOTE | 2024-08-20 22:26 | PC.NURSE ---
lab called at this time and reports they need another order placed for the type and screen.
--- NOTE | 2024-08-20 22:26 | PC.NURSE ---
report called to Christine RODRIGUEZ
[2024-08-20] MEDS: POTASSIUM CHLORIDE 20MEQ TAB 60 MEQ PO (22:41)
[2024-08-20 23:24] LABS: Eosinophils % 1 % (0-3); Lymphocytes % 16 % (10-50); Monocytes % 6 % (2-9); Neutrophils % 75 % (42-76); Nucleated Red Blood Cells 1; Total Cells Counted 100
[2024-08-20 23:29] LABS: Platelet Estimate Marked Dec
[2024-08-20 23:31] LABS: Macrocytosis 1+; Polychromasia 1+
[2024-08-20 23:36] LABS: Hemoglobin 5.7 g/dL (12.2-16.2)
[2024-08-21] VITALS (26 sets, daily range): BP systolic 102–166; BP diastolic 59–89; PULSE 60–90; RESP 16–22; TEMP 36.5–37.9; O2SAT 96–100; BMI 23.5
[2024-08-21] MEDS: 0.9 % SODIUM CHLORIDE 250 ML 25 ML IV ×2 (00:20→06:19)
--- NOTE | 2024-08-21 00:38 | PC.NURSE ---
Pt temp was 99.3 F pre blood, and 100.2 F upon beginning blood @ 0020. blood transfusion was stopped at that time and this nurse contacted Dr. Morgan for further instruction. Luanne Morgan ordered to proceed with tranfusion and treat preexisting and or rising temp with tylenol.
[2024-08-21] MEDS: POTASSIUM CHLORIDE 20MEQ TAB 40 MEQ PO (01:22)
[2024-08-21] MEDS: ACETAMINOPHEN 325MG TAB 650 MG PO (01:26)
--- NOTE | 2024-08-21 01:30 | PC.NURSE ---
Pt admits to slight headache however states that the AVITIA is not new and she has had it since arriving to the ER. This nurse gave pt tylenol as requested.
[2024-08-21 03:35] LABS: Hematocrit 18.6 % (37.0-47.0); Hemoglobin 6.3 g/dL (12.2-16.2)
--- NOTE | 2024-08-21 03:41 | PC.NURSE ---
Lab reported critical labs: Hgb of 6.3 and Hct of 18.6, contacted Dr. Morgan, new orders to infuse 1 unit of blood NOW. Orders read back and verified.
--- NOTE | 2024-08-21 04:34 | PC.NURSE ---
Pt is alert and oriented x4. Pt has received 1 unit of RBCs thus far this shift, new orders for a 2nd unit have been paced and waiting for lab to prepare. Pt has tolerated transfusion well and is resting comfortably. Pt levels did increase from 5.7/6.3 and 17.3/18.6 after unit.
[2024-08-21] MEDS: POTASSIUM CHLORIDE 20MEQ TAB 20 MEQ PO (06:19)
--- NOTE | 2024-08-21 06:21 | EXP.HP ---
History of Present Illness *Admission Date: 08/20/24 *Reason for visit:: Anemia *History of present illness: Patient is a 74-year-old female with past medical history of rheumatoid arthritis recently started on methotrexate who presents to the hospital due to abnormal blood work. According to patient she had blood work performed as outpatient, she was called today to come to the emergency department due to low hemoglobin. Patient was found to have a hemoglobin of 5.7, baseline hemoglobin around 9.8. Patient also mentions her stools has been black, she is also bleeding in her mouth. Patient otherwise denied diarrhea constipation dysuria abdominal pain chest pain shortness of breath. [facility] Disclaimer: The information contained in this section may have been updated after the patient was seen, as this information can be updated by other users. Medical History Cough Patient report dry cough, patient was dx allergic rhinitis on Wed will add flonase and prescribe Benzonate for cough and strict follow up with PCP if symptoms persist or worsen Hypothyroidism History of myocardial infarct at age greater than 60 years Skin lesion of upper extremity Thrombocytopenia Past heart attack Surgical History History of right heart catheterization H/O tubal ligation Family History Other Family history of cancer Family history of stroke Social History (Updated 08/20/24 @ 23:19 by Christine Gregory RN) Smoking Status: Never smoker alcohol intake: never substance use type: denies use current occupational status: retired Travel in the last 8 weeks?: None Have you lived/traveled outside US in past 30 days?: No Contact w/someone who lives/traveled outside US past 30 days?: No Exposure to someone with infectious disease in past 14 days?: No Do you have a fever (greater than 100.4 F or 38 C)?: No Have you tested positive for COVID-19?: No Exposed to someone with COVID-19 in past 14 days?: No Do you have a sore throat?: No Do you have a cough?: No Do you have any weakness?: No Do you have any diarrhea?: No Are you experiencing any unusual bleeding?: No Do you have any muscle aches/pain?: No Do you have any abdominal pain?: No Are you experiencing loss of taste or smell?: No Other Medical History Have you received the Flu Vaccine for this season: No Have you received the Pneumonia Vaccine: No Review of Systems Review of Systems Review of systems:: pertinent systems reviewed and negative unless documented below Meds Home Medications and Allergies Home Medications ?Medication ?Instructions ?Recorded ?Confirmed ?Type aspirin 81 mg tablet,delayed 81 mg PO ONCE 04/10/17 08/20/24 History release (Adult Low Dose Aspirin) prednisone 20 mg tablet 20 mg PO BID #14 tabs 05/06/24 08/20/24 Rx leucovorin calcium 15 mg tablet 15 mg PO DAILY #7 tabs 08/17/24 08/20/24 Rx atorvastatin 20 mg tablet 20 mg PO HS 08/20/24 08/20/24 History bisoprolol fumarate 5 mg tablet 2.5 mg PO DAILY 08/20/24 08/20/24 History levothyroxine 88 mcg tablet 88 mcg PO DAILY 08/20/24 08/20/24 History losartan 100 mg tablet 100 mg PO DAILY 08/20/24 08/20/24 History New Prescriptions to Start Prescriptions: Allergies Allergy/AdvReac Type Severity Reaction Status Date / Time codeine (CODEINE) Allergy Mild NA-NAUSEA/V Verified 06/16/24 09:08 OMITING Exam Data for Last 24 hours Vital signs and Labs for Last 24 Hours: Temp Pulse Resp BP Pulse Ox O2 Del Method 98.2 F 66 22 105/59 L 98 Room Air 08/21/24 04:00 08/21/24 04:00 08/21/24 04:00 08/21/24 04:00 08/21/24 04:00 08/21/24 04:40 Laboratory Results - last 24 hr 08/20/24 21:00: WBC 2.0 L, RBC 2.11 L, Hgb 5.7 L*, Hct 17.3 L*, MCV 82.0, MCH 27.0, MCHC 32.9, RDW 18.1 H, Plt Count 53 L, MPV 13.3 H, Neut % (Auto) 67.0, Lymph % (Auto) 19.3, [place] % (Auto) 10.7 H, Eos % (Auto) 0.5, Baso % (Auto) 0.0 L, Neut # (Auto) 1.3 L, Lymph # (Auto) 0.4 L, [place] # (Auto) 0.2, Eos # (Auto) 0.0, Baso # (Auto) 0.0, Total Counted 100, Neutrophils % (Manual) 75, Lymphocytes % (Manual) 16, Monocytes % (Manual) 6, Eosinophils % (Manual) 1, Metamyelocytes % 1.0, Blast Cells % 1.0, Nucleated RBCs 1, Platelet Estimate Marked dec, RBC Morphology Not Reportable, Polychromasia 1+, Macrocytosis 1+, Sodium 130 L, Potassium 3.1 L, Chloride 104, Carbon Dioxide 24, Anion Gap 5.1, BUN 16, Creatinine 1.20 H, Estimated Creat Clear 44, Estimated GFR 44 L, Est GFR ( Amer) 53 L, Glucose 124 H, Calcium 8.8, Total Bilirubin 0.7, AST 20, ALT 24, Alkaline Phosphatase 67, Total Protein 5.8 L, Albumin 2.9 L, Globulin 2.9, Albumin/Globulin Ratio 1.0 L, Blood Type A Negative, Antibody Screen Negative, Crossmatch (G) See Detail 08/20/24 22:28: Blood Type Cancelled, Blood Type Confirm A Negative, Antibody Screen Cancelled, Crossmatch ([facility]) See Detail 08/21/24 03:10: Hgb 6.3 L*, Hct 18.6 L* I & O for Last 24 hours: Intake & Output 08/18/24 08/19/24 08/20/24 08/21/24 23:59 23:59 23:59 23:59 Intake Total 60 / 60 0 / 0 Output Total 50 / 50 Balance 60 / 10 -50 / -50 Weight 66.224 kg 66.315 kg Constitutional Constitutional: no acute distress *Routine HEENT Exam Head: Present normocephalic Eye: Present EOMI and PERRL ENT: Present mucous membranes moist *Routine Neck Exam Neck: Present supple; Absent lymphadenopathy *Routine Respiratory Exam Respiratory: Present CTA bilaterally *Routine Cardiovascular Exam Cardiovascular: Present RRR *Routine Abdominal Exam Abdominal: Present soft and normoactive bowel sounds; Absent tenderness *Routine Rectal Exam Rectal:: deferred *Routine Genitalia Exam Genitalia:: deferred *Routine Extremities Exam Extremities: Absent cyanosis, clubbing or edema *Routine Skin Exam Skin: Present warm; Absent rash *Routine Neurological Exam Neurological: Present alert and oriented X3 Assessment and Plan *Assessment and plan (1) Anemia: Status: Acute Qualifiers: Anemia type: unspecified type Qualified Code(s): D64.9 - Anemia, unspecified Category: Medical Code(s): D64.9 - Anemia, unspecified (2) CKD (chronic kidney disease) stage 3, GFR 30-59 ml/min: Status: Acute Category: Medical Code(s): N18.30 - Chronic kidney disease, stage 3 unspecified (3) Thrombocytopenia: Status: Acute Category: Medical Code(s): D69.6 - Thrombocytopenia, unspecified (4) HLD (hyperlipidemia): Status: Chronic Qualifiers: Hyperlipidemia type: mixed hyperlipidemia Qualified Code(s): E78.2 - Mixed hyperlipidemia Category: Medical Code(s): E78.5 - Hyperlipidemia, unspecified (5) HTN (hypertension): Status: Chronic Qualifiers: Hypertension type: essential hypertension Qualified Code(s): I10 - Essential (primary) hypertension Category: Medical Code(s): I10 - Essential (primary) hypertension (6) CAD (coronary artery disease): Status: Chronic Qualifiers: Coronary Disease-Associated Artery/Lesion type: [place] artery [place] vs. transplanted heart: [place] heart Associated angina: without angina Qualified Code(s): I25.10 - Atherosclerotic heart disease of [place] coronary artery without angina pectoris Category: Medical Code(s): I25.10 - Atherosclerotic heart disease of [place] coronary artery without angina pectoris Plan Patient is a 74-year-old female with past medical history of rheumatoid arthritis recently started on methotrexate who presents to the hospital due to abnormal blood work. According to patient she had blood work performed as outpatient, she was called today to come to the emergency department due to low hemoglobin. Patient was found to have a hemoglobin of 5.7, baseline hemoglobin around 9.8. Patient also mentions her stools has been black, she is also bleeding in her mouth. Patient otherwise denied diarrhea constipation dysuria abdominal pain chest pain shortness of breath. Assessment and plan Anemia likely medication side effect from methotrexate, rule out anemia blood loss Pancytopenia on methotrexate Melena suspect GI bleed Ordered 2 units packed red blood cells Hold off of any antiplatelets anticoagulants Check PT/INR Platelet count on arrival 53, monitor WBC count 2.0-monitor hemoglobin 5.7 on arrival Check a stool occult Start IV PPI Monitor hemoglobin, replace if less than 7 Chronic medical conditions CKD stage III Hypertension Hyperlipidemia CAD Chronic thrombocytopenia resume atorvastatin bisoprolol levothyroxine losartan prednisone, - Hold home aspirin DVT prophylaxis-SCDs for now
--- NOTE | 2024-08-21 06:54 | PC.WOUNDNOTE ---
left eye bruising pt mouth blistered from reaction to medication bruising and discoloration to left foot
--- NOTE | 2024-08-21 08:57 | HMH.PHAINT1 ---
Pharmacy Intervention Comments: MEDICATION RECONCILIATION COMPLETED ON PATIENT USING EXTERNAL FILL HISTORY FROM PHARMACY. -DHARA PHAM, RICHARD
[2024-08-21] MEDS: BISOPROLOL 5MG TABLET 2.5 MG PO (09:32)
[2024-08-21] MEDS: SODIUM CHLORIDE 0.9% 10ML VIAL 10 ML IV ×2 (09:32→21:09)
[2024-08-21] MEDS: LEVOTHYROXINE 88MCG (0.088MG) TAB 88 MCG PO (09:32)
[2024-08-21] MEDS: PANTOPRAZOLE 40MG VIAL 40 MG IV ×2 (09:32→21:09)
[2024-08-21 10:04] LABS: Basophils % 0.5 % (0.1-2.0); Eosinophils % 0.9 % (0.1-12.0); Hematocrit 24.4 % (37.0-47.0); Immature Granulocytes # 0.13 10^3uL; Lymphocytes # 0.6 K/mm3 (0.7-4.5); Lymphocytes % 25.3 % (10-50); Mean Corpuscular HGB Conc 33.2 g/dL (31.8-35.4); Mean Corpuscular Hemoglobin 27.9 pg (27.0-31.2); Mean Corpuscular Volume 84.1 fl (81-99); Mean Platelet Volume 11.7 fl (7.4-10.4); Monocytes # 0.3 K/mm3 (0.1-1.0); Monocytes % 11.5 % (1.7-9.3); Neutrophils # 1.2 K/mm3 (1.8-7.8); Neutrophils % 55.8 % (37.0-80.0); Nucleated Red Blood Cells # 0.02 10^3/uL; Nucleated Red Blood Cells % 0.9 %; Platelet Count 93 K/mm3 (142-424); Red Cell Distribution Width-SD 50.4 fL; White Blood Count 2.2 K/mm3 (4.8-10.8)
[2024-08-21 10:08] LABS: INR 1.06 (0.9-1.1); MANUAL DIFFERENTIAL MANUAL DIFFERENTIAL (MANUAL DIFF); Prothrombin Time 11.7 seconds (10.1-12.5)
[2024-08-21 10:10] LABS: Chloride 110 mmol/L (98-107); Sodium 134 mmol/L (136-145)
[2024-08-21 10:11] LABS: Potassium 4.5 mmoL/L (3.5-5.1)
[2024-08-21 10:14] LABS: Anion Gap 8.5 mEq/L (5-15); Blood Urea Nitrogen 15 mg/dl (7-17); Calcium 8.5 mg/dl (8.4-10.2); Carbon Dioxide 20 mmol/L (22.0-30.0); Creatinine Clearance Estimated 52 mL/min (50-200); Estimated Glomerular Filt Rate 54 ml/min (>60); GFR (African American) 66 ML/MIN (>60); Glucose 92 mg/dl (74-100)
[2024-08-21 10:17] LABS: Hemoglobin 8.1 g/dL (12.2-16.2)
[2024-08-21 11:37] LABS: Eosinophils % 2 % (0-3); Lymphocytes % 24 % (10-50); Monocytes % 4 % (2-9); Neutrophils % 70 % (42-76); RBC Morphology Normal; Total Cells Counted 50
[2024-08-21 11:38] LABS: Platelet Estimate Moderate Decrease
[2024-08-21 12:28] LABS: Adenovirus F 40/41, stool Not Detected (NotDetected); Astrovirus Not Detected (NotDetected); Campylobacter Not Detected (NotDetected); Clostridium Difficile A/B, PCR Not Detected (NotDetected); Cryptosporidium Not Detected (NotDetected); Cyclospora Cayetanesis Not Detected (NotDetected); Entamoeba histolytica Not Detected (NotDetected); Enteroaggregative E coli Not Detected (NotDetected); Enteropathogenic E coli Not Detected (NotDetected); Enterotoxigenic E coli Not Detected (NotDetected); Giardia lamblia Not Detected (NotDetected); Norovirus Not Detected (NotDetected); Plesimonas Shigalloides, PCR Not Detected (NotDetected); Rotavirus A Not Detected (NotDetected); Salmonella, PCR Not Detected (NotDetected); Sapovirus Not Detected (NotDetected); Shiga-like toxin E coli Not Detected (NotDetected); Shigella Enterovasive E coli Not Detected (NotDetected); Vibrio Cholerae Not Detected (NotDetected); Vibrio, PCR Not Detected (NotDetected); Yersinia Entercolitica, PCR Not Detected (NotDetected)
[2024-08-21 12:44] LABS: Occult Blood,Stool Positive (Negative)
--- NOTE | 2024-08-21 15:11 | HMH.PTEV ---
Physical Therapy Evaluation Rehab PT IP Evaluation Start: 08/21/24 12:09 Freq: ONCE Status: Active Protocol: Document 08/21/24 15:07 MINNA (Rec: 08/21/24 15:11 MINNA Desktop) Subjective/History History History Per H&P: Patient is a 74-year-old female with past medical history of rheumatoid arthritis recently started on methotrexate who presents to the hospital due to abnormal blood work. According to patient she had blood work performed as outpatient, she was called today to come to the emergency department due to low hemoglobin. Patient was found to have a hemoglobin of 5.7, baseline hemoglobin around 9.8. Patient also mentions her stools has been black, she is also bleeding in her mouth. Patient otherwise denied diarrhea constipation dysuria abdominal pain chest pain shortness of breath. Subjective Subjective Pt reports she is IND with all mobility without AD use. Pt still driving a car. One fall reported in past month d/t BLE being asleep. Pt lives with her son who works FT. Pt lives in a single story home with [facility] with [facility]. New diagnosis of No cancer in past 12 months? [facility] How much help from another person do you currently need... Turning from your None back to your side while in a flat bed without using bedrails? Moving from lying on None back to sitting on the side of a flat bed without using bedrails? Moving to and from a None bed to a chair ( including a wheelchair)? Standing up from a None chair using your arms? (e.g., wheelchair, bedside chair) Walking in hospital None room? Climbing 3-5 steps A little with a railing? Mobility Score 23 Mobility Level [facility] Mobility 7 Walk 25 feet or more Mobility Calculator Rehab PT IP Eval Objective Appearance Patient Behavior Appropriate,Cooperative Patient Orientation Person,Place Difficulty following none instructions Speech Pattern Clear Ambulation Patient Able to Yes Ambulate Ambulation Observation IP General Gait No Deviations/Normal Pattern Observation Ambulation Distance 30 (feet) Ambulation Assistive None Device Ambulation Ability Independent Balance Ability to Arise Able, uses arms to help Sitting Balance Steady, safe Standing Balance Steady, wide stance Dynamic Sitting Good Balance Ability Dynamic Standing Good Balance Ability Transfers Bed Transfer Ability Independent Sit to Stand Bed Independent Transfer Ability Rehab PT IP prob,goals,plan Problems Date of Evaluation: 08/21/24 Rehab Potential Rehab Potential Innapropriate for Skilled Therapy Discharge Plan PT Discharge Plan Pt is IND with household level mobility. Pt not appropriate for skilled acute care PT at this time as her mobility is at baseline/IND. Educated pt on using her RW for longer distances d/t reported fatigue. Eval Complexity Eval Charge Codes 98263 - Moderate Complexity PHYSICIAN CERTIFICATION: I certify the specified therapy services for Hayley Hutson are required, authorized, and reviewed every 30 days.
--- NOTE | 2024-08-21 17:19 | PC.NURSE ---
patient is a/ox4 and remains on room air tolerating well. patient has had several loose/liquid, dark brown/black BM this shift, occult stool collected. she ambulates to the bathroom x1 assist. Received 1 unit of blood this AM, tolerated transfusion well. post blood H/H did increase. patient stated during dinner that she has concerns with her throat and swallowing after taking a potassium pill early this AM. MD notified, new orders received. patient is not c/o SOA or pain. call light within reach, family at bedside, XRAY currently in room.
--- NOTE | 2024-08-21 17:33 | XR_ITS ---
PROCEDURE INFORMATION: Exam: XR Cervical Spine Exam date and time: 08/21/2024 5:33 PM Age: 74 years old Clinical indication: Other: Dysphagia after potassium pill TECHNIQUE: Imaging protocol: Radiologic exam of the cervical spine. Views: 2 or 3 views. COMPARISON: CR XR CERVICAL SPINE 3V 01/12/2024 10:38 AM FINDINGS: Bones/joints: Normal. No acute fracture. Normal alignment. Soft tissues: Unremarkable. IMPRESSION: No acute findings.
[2024-08-21] MEDS: BELLADONNA ALKALOIDS 60 ML ML PO (17:55)
[2024-08-21 20:46] LABS: Hemoglobin 8.1 g/dL (12.2-16.2)
[2024-08-21] MEDS: *PAT OWN MED* ATORVASTATIN 20MG TABLET 20 MG PO (21:15)
[2024-08-22] VITALS (7 sets, daily range): BP systolic 109–134; BP diastolic 55–71; PULSE 63–80; RESP 16; TEMP 36.6–38; O2SAT 94–98; BMI 23.7
--- NOTE | 2024-08-22 05:18 | PC.NURSE ---
Pt is A&Ox4. Pt has rested well this shift and has had no complaints. Pt Hgb remains 8.1. Pt has been NPO since 0000 due to possible procedure 08/22. Pt has had no acute changes to note this shift, and admits to feeling much better, pt denies weakness.
[2024-08-22] MEDS: LEVOTHYROXINE 88 MCG PO (06:18)
[2024-08-22 08:23] LABS: Basophils % 0.5 % (0.1-2.0); Eosinophils # 0.1 Kmm3 (0.0-0.4); Eosinophils % 2.4 % (0.1-12.0); Hematocrit 22.2 % (37.0-47.0); Hemoglobin 7.3 g/dL (12.2-16.2); Immature Granulocytes # 0.18 10^3uL; Immature Granulocytes % 8.5 %; Lymphocytes # 0.4 K/mm3 (0.7-4.5); Lymphocytes % 20.8 % (10-50); Mean Corpuscular HGB Conc 32.9 g/dL (31.8-35.4); Mean Corpuscular Volume 85.1 fl (81-99); Mean Platelet Volume 10.2 fl (7.4-10.4); Monocytes # 0.2 K/mm3 (0.1-1.0); Monocytes % 7.5 % (1.7-9.3); Neutrophils # 1.3 K/mm3 (1.8-7.8); Neutrophils % 60.3 % (37.0-80.0); Nucleated Red Blood Cells # 0 10^3/uL; Nucleated Red Blood Cells % 0 %; Platelet Count 158 K/mm3 (142-424); Red Blood Count 2.61 M/mm3 (4.20-5.40); Red Cell Distribution Width 18.2 % (11.5-17.5); Red Cell Distribution Width-SD 50.6 fL; White Blood Count 2.1 K/mm3 (4.8-10.8)
[2024-08-22 08:27] LABS: MANUAL DIFFERENTIAL MANUAL DIFFERENTIAL (MANUAL DIFF)
[2024-08-22 08:39] LABS: Chloride 109 mmol/L (98-107)
[2024-08-22 08:40] LABS: Albumin Level 2.4 g/dl (3.5-5.0); Sodium 133 mmol/L (136-145)
[2024-08-22 08:42] LABS: Alanine Aminotransferase 16 U/L (12-78); Aspartate Amino Transferase 16 U/L (14-36); Blood Urea Nitrogen 13 mg/dl (7-17); Creatinine Clearance Estimated 53 mL/min (50-200); Estimated Glomerular Filt Rate 54 ml/min (>60); GFR (African American) 66 ML/MIN (>60)
[2024-08-22 08:43] LABS: Albumin/Globulin Ratio 0.9 (1.1-1.8); Alkaline Phosphatase 64 U/L (38-126); Bilirubin,Total 0.6 mg/dl (0.2-1.3); Calcium 7.6 mg/dl (8.4-10.2); Carbon Dioxide 22 mmol/L (22.0-30.0); Globulin 2.6 g/dL (1.3-3.2); Glucose 88 mg/dl (74-100)
[2024-08-22] MEDS: PANTOPRAZOLE 40MG VIAL 40 MG IV ×2 (08:56→20:13)
[2024-08-22] MEDS: SODIUM CHLORIDE 0.9% 10ML VIAL 10 ML IV ×2 (08:56→20:13)
[2024-08-22] MEDS: LOSARTAN 100 MG 1 EACH PO (09:02)
[2024-08-22] MEDS: BISOPROLOL 5 MG 2.5 MG PO (09:03)
[2024-08-22 10:30] LABS: Lymphocytes % 20 % (10-50); Monocytes % 4 % (2-9); Neutrophils % 76 % (42-76); Nucleated Red Blood Cells 1; Platelet Estimate Normal; RBC Morphology Normal; Total Cells Counted 100
--- NOTE | 2024-08-22 15:16 | P.PN_ITS ---
Subjective *Date: 08/22/24 *Time: 15:16 Interval history: Patient states she is feeling better today, dark stools are improving. However hemoglobin dropped to 7.3, GI consulted,. N.p.o. at midnight for possible EGD in the morning. Exam Data for Last 24 hours Vital signs and Labs for Last 24 Hours: Temp Pulse Resp BP Pulse Ox O2 Del Method 97.9 F 69 16 115/63 94 L Room Air 08/22/24 12:00 08/22/24 12:08/22/24 12:08/22/24 12:08/22/24 12:08/22/24 13:00 Laboratory Results - last 24 hr 08/21/24 20:35: Hgb 8.1 L, Hct 24.0 L 08/22/24 08:10: WBC 2.1 L, RBC 2.61 L, Hgb 7.3 L, Hct 22.2 L, MCV 85.1, MCH 28.0, MCHC 32.9, RDW 18.2 H, Plt Count 158 D, MPV 10.2, Neut % (Auto) 60.3, Lymph % (Auto) 20.8, [place] % (Auto) 7.5, Eos % (Auto) 2.4, Baso % (Auto) 0.5, Neut # (Auto) 1.3 L, Lymph # (Auto) 0.4 L, [place] # (Auto) 0.2, Eos # (Auto) 0.1, Baso # (Auto) 0.0, Total Counted 100, Neutrophils % (Manual) 76, Lymphocytes % (Manual) 20, Monocytes % (Manual) 4, Nucleated RBCs 1, Platelet Estimate Normal, RBC Morphology Normal, Sodium 133 L, Potassium 4.0, Chloride 109 H, Carbon Dioxide 22, Anion Gap 6.0, BUN 13, Creatinine 1.00, Estimated Creat Clear 53, Estimated GFR 54 L, Est GFR ( Amer) 66, Glucose 88, Calcium 7.6 L, Total Bilirubin 0.6, AST 16, ALT 16 D, Alkaline Phosphatase 64, Total Protein 5.0 L, Albumin 2.4 L D, Globulin 2.6, Albumin/Globulin Ratio 0.9 L I & O for Last 24 hours: Intake & Output 08/19/24 08/20/24 08/21/24 08/22/24 23:59 23:59 23:59 23:59 Intake Total 60 / 60 1210 / 1210 Output Total 600 / 600 0 / 0 Balance 60 / 10 610 / 610 0 / 0 Weight 66.224 kg 66.315 kg 66.933 kg Constitutional Constitutional: no acute distress *Routine HEENT Exam Head: Present normocephalic Eye: Present EOMI and PERRL ENT: Present mucous membranes moist *Routine Neck Exam Neck: Present supple; Absent lymphadenopathy *Routine Respiratory Exam Respiratory: Present CTA bilaterally *Routine Cardiovascular Exam Cardiovascular: Present RRR *Routine Abdominal Exam Abdominal: Present soft and normoactive bowel sounds; Absent tenderness *Routine Extremities Exam Extremities: Absent cyanosis, clubbing or edema *Routine Skin Exam Skin: Present warm; Absent rash *Routine Neurological Exam Neurological: Present alert and oriented X3 Assessment and Plan *Assessment and plan (1) GI bleed: Status: Acute Category: Medical Code(s): K92.2 - Gastrointestinal hemorrhage, unspecified (2) Pancytopenia: Status: Acute Category: Medical Code(s): D61.818 - Other pancytopenia Plan Hayley Hutson is a 74-year-old female who presented with weakness, black stools and was admitted for suspected GI bleed and acute on chronic anemia. #Suspected upper GI bleed #Acute on chronic anemia #Black tarry stools ? About 1 week onset of black tarry stools, weakness. Initial hemoglobin 5.7, improved to 8.1 after 2 units transfusion. ? Patient continues to have dark stools, though improving and getting more clear per patient. FOBT positive. ? Hemoglobin dropped to 7.3 today, but patient states she feels good. Vital signs stable. ? Continue IV Protonix 40 mg twice daily, Carafate with meals. ? Continuous cardiac telemetry. ? Follow-up repeat H&H at 3 PM. Transfuse if hemoglobin less than 7. ? GI consulted, pending further recommendations. N.p.o. at midnight for possible EGD in the morning. #Pancytopenia ? Following with oncology outpatient, with no clear etiology at this time. Suspecting rheumatological disease. Bone marrow biopsy unremarkable. ? Had been taking methotrexate for rheumatoid arthritis, but discontinued after mouth and lip sores. ? Considered cirrhosis but patient has known alcohol use disorder or history of hepatitis. Albumin low however. ? Follow-up liver ultrasound. ? Continue following up with Dr. Nixon outpatient. #CKD stage III ? Creatinine 1.0, GFR 54. Stable. Avoid nephrotoxins, renally dose medications. #CAD #Hypertension #Hyperlipidemia ? Continue home bisoprolol, atorvastatin. Holding home aspirin due to GI bleed. #Hypothyroidism ? Continue home levothyroxine 88 mcg. Follow-up TFTs. Full code DVT prophylaxis: Hold AC due to GI bleed
[2024-08-22 15:37] LABS: Hematocrit 27.3 % (37.0-47.0)
--- OUTSIDE RECORDS SUMMARY | 2024-08-22 15:40 | XMS_ITS | Encounter Summary ---
Author Organization Healthcare Address [address] [id number] Care Team Providers Care Shuffle Board Operator Name Role Phone Diego López [employer]CH[employer] Primary Care Provider [phone] Encounter Details Date Type Department Care Team [...] Description 07/08/2025 12:40 PM EDT Office Visit [address] [place] [address] Ganesh Chen MD [address] [place] [address] [phone] documented as of this encounter Visit Diagnoses Not on filedocumented in this encounter Additional Health Concerns Assessment Noted Time A Body Mass Index follow-up plan has been documented for the patient 06/29/2024 11:30 AM EDT documented as of this encounter Care Teams Shuffle Board Operator Relationship Specialty Start Date End Date Diego López APRN [address] [facility] [place] [address] PCP - General 07/21/20 documented as of this encounter
--- OUTSIDE RECORDS SUMMARY | 2024-08-22 15:40 | XMS_ITS | Data Portability ---
Author Organization [facility] [place] [facility] Address [address] [facility] [place] [address] Care Team Providers Care Manager Oracle Retail Name Role Phone BETHANY WOLFE Referring Provider [phone] BETHANY WOLFE Primary Care Provider [phone] KEENA LI Vertical Borer Assessment No assessment recorded. Plan of Treatment Reminders Order Date Submit Date Provider Last Modified By Organization Details Last Modified Time Details Appointments CT SCAN 2024 02:20P M ct_scan Not available Not available Not available RHEUM RECHECK 2024 03:30P M KEENA LI MD Not available Not available Not available Lab CBC w/ auto diff 2024 025 [facility], [address] [place] [address], [id number], 08/20/2024 21:30:30 CMP, serum or plasma 2024 025 [facility], [address] [place] [address], [id number], 08/20/2024 19:03:00 CBC w/ auto diff 2024 025 [facility], [address] [place] [address], [address], 08/03/2024 15:27:43 CMP, serum or plasma 2024 025 [facility], [address] [place] [address], [address], 08/03/2024 15:48:05 ESR (erythro cyte sediment ation rate), blood 2024 025 [facility], [address] [place] [address], [address], 08/03/2024 18:34:41 C reactive protein, QN, serum or plasma 2024 025 [facility], [address] [place] [address], [address], 08/03/2024 15:48:02 vitamin D, 25-hydro xy, total, serum 2024 025 [facility] [place], [address] [place] [address], [address], 08/03/2024 15:34:19 CK (creatin e kinase), total, serum 2024 025 [facility] [place], [address] [place] [address], [address], 08/03/2024 15:48:03 vitamin B12, serum 2024 025 [facility] [place], [address] [place] [address], [address], 08/03/2024 15:34:21 folate, serum 2024 025 [facility], [address] [place] [address], [address], 08/03/2024 15:34:18 TSH, serum, reflex free T4 2024 025 [facility] [place], [address] [place] [address], [address], 08/03/2024 15:29:12 ccp (cyclic citrulli nated peptide) iga+igg, serum 2024 025 [facility] [place], [address] [place] [address], [address], 08/05/2024 16:39:40 CBC w/ auto diff [address] [facility], [address] [place] [address], [address], 08/10/2024 08:04:48 CMP, serum or plasma [address] [facility], [address] [place] [address], [address], 08/10/2024 08:04:48 ESR (erythro cyte sediment ation rate), blood [address] [facility], [address] [place] [address], [address], 08/10/2024 08:04:48 C reactive protein, QN, serum or plasma [address] [facility], [address] [place] [address], [address], 08/10/2024 08:04:48 Mycobact erium tubercul osis stimulat ed gamma interfer on, qual, blood 2024 [facility], [address] [place] [address], [address], 08/05/2024 15:38:07 hepatiti s (A+B+C) panel, serum 2024 [facility], [address] [place] [address], [address], 08/03/2024 15:28:56 Referral None recorded . Procedures None recorded . Surgeries None recorded . Imaging XR, ankle, 3 or more view 2024 [facility], [address] [place] [address], [address], 08/03/2024 14:30:45 XR, chest, 2 view 2024 [facility], [address] [facility], [place], [address], 08/03/2024 14:26:18 Medication Orders predniso ne 5 mg tablet 2024 025 [facility], [address], [address], 08/20/2024 16:09:49 Valtrex 1 gram tablet 2024 025 [facility], [address], [address], 08/20/2024 16:09:47 Compound Magic Mouthwas h #10 (Dipheny dramine/ Nystatin /Maalox/ Lidocain e 1:1:1:1) 2024 025 [facility], [address], [address], 08/20/2024 16:09:46 predniso ne 5 mg tablet 2024 025 [facility], [address], [address], 08/03/2024 13:45:28 methotre xate sodium 2.5 mg tablet 2024 025 [facility], [address], [address], 08/20/2024 15:33:39 folic acid 1 mg tablet 2024 025 [facility], [address], [address], 08/20/2024 15:33:44 Patient TargetsNo targets recorded. Patient Instructions Encounter Date Encounter Id Patient Instructions Last Modified By Organization Details Last Modified Time 08/03/2024 [id number] medical record request* - Please send the X rays on the hands and the cervical spine [email or web address] Not available 08/10/2024 08:04:54 I spent >60 minutes caring for the patient today with counseling, coordinating care, extensive review of outside records, medication management, and documentation. [email or web address] Not available 08/06/2024 20:07:40 Reason for Referral None Reported. Results Created Date Observation Date Name Description Value Unit Range Abnormal Flag Note LastModifiedBy Organization Detail LastModifiedTime 08/04/1908/03/2024 COMPL ETE BLOOD COUNT white blood cells 5.1 10*3/ uL 3.8-10 .8 normal Not Available [facility] [address] [place] [address], [address], 08/03/2024 15:27:43 08/04/19 25 08/03/2024 COMPL ETE BLOOD COUNT red blood cells 3.42 10*6/ uL 3.80-5 .20 low Not Available [facility] [address] [place] [address], [address], 08/03/2024 15:27:43 08/04/19 25 08/03/2024 COMPL ETE BLOOD COUNT hemoglobin 9.3 g/dL 12.0-1 6.0 low Not Available [facility] [address] [place] [address], [address], 08/03/2024 15:27:43 08/04/19 25 08/03/2024 COMPL ETE BLOOD COUNT hematocrit 27.8 % 35.0-4 7.0 low Not Available [facility] [address] [place] [address], [address], 08/03/2024 15:27:43 08/04/19 25 08/03/2024 COMPL ETE BLOOD COUNT MCV 82 fL 80-100 normal Not Available [facility] [address] [place] [address], [address], 08/03/2024 15:27:43 08/04/19 25 08/03/2024 COMPL ETE BLOOD COUNT MCH 27 pg 26-35 normal Not Available [facility] [address] [place] [address], [address], 08/03/2024 15:27:43 08/04/19 25 08/03/2024 COMPL ETE BLOOD COUNT MCHC 33 g/dL 32-36 normal Not Available [facility] [address] [place] [address], [address], 08/03/2024 15:27:43 08/04/19 25 08/03/2024 COMPL ETE BLOOD COUNT RDW 17.3 % 11.0-1 5.0 high Not Available [facility] [address] [place] [address], [address], 08/03/2024 15:27:43 08/04/19 25 08/03/2024 COMPL ETE BLOOD COUNT MPV 10.6 fL 6.2-10 .5 high Not Available [facility] [address] [place] [address], [address], 08/03/2024 15:27:43 08/04/19 25 08/03/2024 COMPL ETE BLOOD COUNT platelet count 54 10*3/ uL 150-40 0 low Not Available [facility] [address] [place] [address], [address], 08/03/2024 15:27:43 08/04/19 25 08/03/2024 COMPL ETE BLOOD COUNT neutrophil,a bsolute 4.1 10*3/ uL 1.6-8. 4 normal Not Available [facility] [address] [place] [address], [address], 08/03/2024 15:27:43 08/04/19 25 08/03/2024 COMPL ETE BLOOD COUNT lymphocyte,a bsolute 0.7 10*3/ uL 0.4-5. 1 normal Not Available [facility] [address] [place] [address], [address], 08/03/2024 15:27:43 08/04/19 25 08/03/2024 COMPL ETE BLOOD COUNT monocyte,abs olute 0.2 10*3/ uL 0.0-1. 2 normal Not Available [facility] [address] [place] [address], [address], 08/03/2024 15:27:43 08/04/19 25 08/03/2024 COMPL ETE BLOOD COUNT eosinophil,a bsolute 0.1 10*3/ uL 0.0-0. 8 normal Not Available [facility] [address] [place] [address], [address], 08/03/2024 15:27:43 08/04/19 25 08/03/2024 COMPL ETE BLOOD COUNT basophil,abs olute 0.0 10*3/ uL 0.0-0. 3 normal Not Available [facility] [address] [place] [address], [address], 08/03/2024 15:27:43 08/04/19 25 08/03/2024 COMPL ETE BLOOD COUNT % neutrophils 81.1 % 42.0-7 8.0 high Not Available [facility] [address] [place] [address], [address], 08/03/2024 15:27:43 08/04/19 25 08/03/2024 COMPL ETE BLOOD COUNT % lymphocytes 13.7 % 11.0-4 7.0 normal Not Available [facility] [address] [place] [address], [address], 08/03/2024 15:27:43 08/04/19 25 08/03/2024 COMPL ETE BLOOD COUNT % monocytes 3.2 % 0.0-11 .0 normal Not Available [facility] [address] [place] [address], [address], 08/03/2024 15:27:43 08/04/19 25 08/03/2024 COMPL ETE BLOOD COUNT % eosinophils 1.5 % 0.0-7. 0 normal Not Available [facility] [address] [place] [address], [address], 08/03/2024 15:27:43 08/04/19 25 08/03/2024 COMPL ETE BLOOD COUNT % basophils 0.5 % 0.0-3. 0 normal Not Available [facility] [address] [place] [address], [address], 08/03/2024 15:27:43 08/04/19 25 08/03/2024 COMPL ETE BLOOD COUNT nucleated red cells 0.1 % 0.0-0. 9 normal Not Available [facility] [address] [place] [address], [address], 08/03/2024 15:27:43 08/04/19 25 08/03/2024 COMPL ETE BLOOD COUNT nucleated RBCs, absolute 0.00 10*3/ uL not estab. normal Not Available [facility] [address] [place] [address], [address], 08/03/2024 15:27:43 08/04/19 25 08/03/2024 HEPAT ITIS PANEL hepatitis A Ab, IgM NONREA CTIVE nonrea ctive normal Not Available [facility] [address] [place] [address], [address], 08/03/2024 15:28:56 08/04/19 25 08/03/2024 HEPAT ITIS PANEL hepatitis B surface Ag NONREA CTIVE nonrea ctive normal Not Available [facility] [address] [place] [address], [address], 08/03/2024 15:28:56 08/04/19 25 08/03/2024 HEPAT ITIS PANEL hepatitis B core Ab,IgM NONREA CTIVE nonrea ctive normal Not Available [facility] [address] [place] [address], [address], 08/03/2024 15:28:56 08/04/19 25 08/03/2024 HEPAT ITIS PANEL hcab, reflex viral RNA qt NONREA CTIVE nonrea ctive normal Antib odies to HCV were not detec shayla; does not exclu de the possi bilit y of expos ure to HCV. Not Available [facility] [address] [place] [address], [address], 08/03/2024 15:28:56 08/04/19 25 08/03/2024 TSH WITH REFLE X FT4 TSH with reflex FT4 1.470 u[IU] /mL 0.270- 4.200 normal Not Available [facility] [address] [place] [address], [address], 08/03/2024 15:29:12 08/04/1908/03/2024 FOLIC ACID folic acid 4.8 NG/mL 4.6-34 .8 normal Not Available [facility] [address] [place] [address], [address], 08/03/2024 15:34:18 08/04/19 25 08/03/2024 VITAM IN D 25-OH vitamin D 25-oh, total 15 NG/mL >=30 NG/mL abnormal Not Available [facility] [address] [place] [address], [address], 08/03/2024 15:34:19 08/04/19 25 08/03/2024 VITAM IN B12 vitamin B12 252 pg/mL 232-12 45 normal Not Available [facility] [address] [place] [address], [address], 08/03/2024 15:34:21 08/04/19 25 08/03/2024 C REACT ANGELA PROTE IN C reactive protein 6.15 mg/dL 0.00-0 .49 high Not Available [facility] [address] [place] [address], [address], 08/03/2024 15:48:02 08/04/19 25 08/03/2024 CREAT INE KINAS E creatine kinase 36 U/L 0-169 normal Not Available [facility] [address] [place] [address], [address], 08/03/2024 15:48:03 08/04/19 25 08/03/2024 COMP. METAB OLIC PANEL glucose 91 mg/dL 74-100 normal Not Available [facility] [address] [place] [address], [address], 08/03/2024 15:48:05 08/04/19 25 08/03/2024 COMP. METAB OLIC PANEL blood urea nitrogen 21 mg/dL 6-20 high Not Available [facility] [address] [place] [address], [address], 08/03/2024 15:48:05 08/04/19 25 08/03/2024 COMP. METAB OLIC PANEL creatinine 1.40 mg/dL 0.50-0 .95 high Not Available [facility] [address] [place] [address], [address], 08/03/2024 15:48:05 08/04/19 25 08/03/2024 COMP. METAB OLIC PANEL BUN/creatini ne ratio 15 (calc ) 10-20 normal Not Available [facility] [address] [place] [address], [address], 08/03/2024 15:48:05 08/04/19 25 08/03/2024 COMP. METAB OLIC PANEL sodium 134 mmol/ L 136-14 5 low Not Available [facility] [address] [place] [address], [address], 08/03/2024 15:48:05 08/04/19 25 08/03/2024 COMP. METAB OLIC PANEL potassium 3.3 mmol/ L 3.4-5. 0 low Not Available [facility] [address] [place] [address], [address], 08/03/2024 15:48:05 08/04/19 25 08/03/2024 COMP. METAB OLIC PANEL chloride 103 mmol/ L 98-107 normal Not Available [facility] [address] [place] [address], [address], 08/03/2024 15:48:05 08/04/19 25 08/03/2024 COMP. METAB OLIC PANEL carbon dioxide 20 mmol/ L 22-31 low Not Available [facility] [address] [place] [address], [address], 08/03/2024 15:48:05 08/04/19 25 08/03/2024 COMP. METAB OLIC PANEL anion gap 11 (calc ) 7-25 normal Not Available [facility] [address] [place] [address], [address], 08/03/2024 15:48:05 08/04/19 25 08/03/2024 COMP. METAB OLIC PANEL calcium 8.4 mg/dL 8.6-10 .2 low Not Available [facility] [address] [place] [address], [address], 08/03/2024 15:48:05 08/04/19 25 08/03/2024 COMP. METAB OLIC PANEL total protein 6.9 g/dL 6.4-8. 3 normal Not Available [facility] [address] [place] [address], [address], 08/03/2024 15:48:05 08/04/19 25 08/03/2024 COMP. METAB OLIC PANEL albumin 3.4 g/dL 3.5-5. 2 low Not Available [facility] [address] [place] [address], [address], 08/03/2024 15:48:05 08/04/19 25 08/03/2024 COMP. METAB OLIC PANEL globulin 3.5 1.5-4. 5 normal Not Available [facility] [address] [place] [address], [address], 08/03/2024 15:48:05 08/04/19 25 08/03/2024 COMP. METAB OLIC PANEL albumin/glob ulin ratio 1.0 (calc ) 1.1-2. 5 low Not Available [facility] [address] [place], [address], 08/03/2024 15:48:05 08/04/19 25 08/03/2024 COMP. METAB OLIC PANEL bilirubin, total 0.5 mg/dL 0.1-1. 2 normal Not Available [facility] [address] [place] [address], [address], 08/03/2024 15:48:05 08/04/19 25 08/03/2024 COMP. METAB OLIC PANEL alkaline phosphatase 69 U/L 30-121 normal Not Available [facility] [address] [place] [address], [address], 08/03/2024 15:48:05 08/04/19 25 08/03/2024 COMP. METAB OLIC PANEL AST 18 U/L 0-32 normal Not Available [facility] [address] [place] [address], [address], 08/03/2024 15:48:05 08/04/19 25 08/03/2024 COMP. METAB OLIC PANEL ALT 9 U/L 0-33 normal Not Available [facility] [address] [place] [address], [address], 08/03/2024 15:48:05 08/04/19 25 08/03/2024 COMP. METAB OLIC PANEL GFR 40 >= 60 abnormal NOT E New calcu latio n for GFR (CKD- EPI 2020) is formu lated witho ut race adjus tment facto rs at the recom menda tion of the Chucky Garza y Peggy atleón and Eugenia Lazcano ty of Nephr ology . This calcu latio n has not been valid ated in pregn ant women . For pedia tric patie nts refer to https ://sunni dolan.o rg/pr ofess ional s/KDO QI/gf r_cal culat orPed Not Available [facility] [address] [place] [address], [address], 08/03/2024 15:48:05 08/04/19 25 08/03/2024 ESR, AUTOM ATED ESR, automated 14 mm 0-29 normal Not Available [facility] [address] [place] [address], [address], 08/03/2024 18:34:41 08/04/19 25 08/05/2024 QUANT IFERO N TB GOLD qtb gold NEGATI VE negati ve normal Negat angela test resul t. M. tuber culos is compl ex infec tion unlik grady. Not Available [facility] [address] [place] [address], [address], 08/05/2024 15:38:07 08/04/19 25 08/05/2024 QUANT IFERO N TB GOLD nil 0.04 IU/mL normal Not Available [facility] [address] [place] [address], [address], 08/05/2024 15:38:07 08/04/19 25 08/05/2024 QUANT IFERO N TB GOLD mitogen nil 6.53 IU/mL normal Not Available [facility] [address] [place] [address], [address], 08/05/2024 15:38:07 08/04/19 25 08/05/2024 QUANT IFERO N TB GOLD TB1 nil <0.00 IU/mL normal Not Available [facility] [address] [place] [address], [address], 08/05/2024 15:38:07 08/04/19 25 08/05/2024 QUANT IFERO N TB GOLD TB2 nil [...] Quant ifero n readi ngs by detec ting a patie nt with a poten tial [...] e refer to https ://ed ucati on.qu estMerchant Cash and Capital/f aq/FA Q204 (This link is being provi ded for infor iwona gordon/ educa hector l purpo ses only. ) Not Available [facility] [address] [place] [address], [address], 08/05/2024 15:38:07 08/04/19 25 08/05/2024 ANTI- CCP anti-ccp <16 units normal Refer ence Range Negat angela: <20 Weak Posit angela: 20-39 Moder ate Posit angela: 40-59 Stron g Posit angela: >59 Not Available [facility] [place], [address], 08/05/2024 16:39:40 08/21/19 25 08/20/2024 C REACT ANGELA PROTE IN C reactive protein 10.31 mg/dL 0.00-0 .49 high Not Available [facility] [place], [address], 08/20/2024 19:03:01 08/21/19 25 08/20/2024 ESR, AUTOM ATED ESR, automated 13 mm 0-29 normal Not Available [facility] [address] [place] [address], [address], 08/20/2024 20:37:18 08/04/19 25 08/03/2024 XR, chest , [address] [id number] Patien t Name: HAYLEY A SERINA Patichuy [...] 2:21 PM [facility] [address], [address], 08/06/2024 14:38:44 08/04/19 25 08/03/2024 XR, ankle , 3 or more view [address] [address] Patien t Name: HAYLEYDeep Cheung t : [birth year] 53 Patien t [...] 2:25 PM [facility] [address], [address], 08/06/2024 14:38:44 Result Notes Documentation Provider Name and Address Organization Details Recorded Time Xr, Chest, 2 View : [address] [address] Patient Name: HAYLEY Quiroga SERINA Patient : [...] CT chest Interpreted By: Diego Longoria MD [facility] 08/06/2024 14:38:44 Xr, Ankle, 3 Or More View : [address] [address] Patient Name: HAYLEY Quiroga SERINA Patient : [...] discrete fracture. Interpreted By: Amando Garcia MD Ramona Townsend [facility] 08/06/2024 14:38:44 Medical Equipment None Reported. Allergies Allergen ID Allergen Name Allergen Category Reaction Reaction Severity Criticality Documentation Date Start Date Code Code System Note Provider Name and Address Organization Details Recorded Time 965684 codeine medicatio n Not available Not available Not available 02/02/20162011 2670 RxNorm Comme nt: Creat ed By: Antonieta moreno; Creat ed Date: 2011 8:33: 42 AM; Not Available [facility] 05:52:00 [id number] methotrex ate medicatio n other moderate Not available 08/20/2024 6851 RxNorm KEENA LI MD [address] [place] [address], [address] [place] [address] 16:03:59 Medications Name Sig Start Date Stop [...] Address Organization Details Last Updated DateTime 5 85637.6 7 g 23.9 kg/m2 167.64 cm 61 /min 14 /min 99 % 99 % 122 mm[Hg] 60 mm[Hg] [facility] 13:14:44 Date Recorded Body height Body mass index (BMI) Body weight Respiratory rate Heart rate Oxygen saturation Oxygen saturation in Arterial blood by Pulse oximetry Systolic blood pressure Diastolic blood pressure Provider Name and Address Organization Details Last Updated DateTime 5 167.64 cm 23.6 kg/m2 49201.4 9 g 14 /min 87 /min 97 % 97 % 110 mm[Hg] 70 mm[Hg] [facility] 15:32:24 Social History Question Answer Notes LastModified by Organizat ion Details LastModified Time Tobacco Smoking Status Never Smoker [facility] 08/03/2024 13:13:20 What Was The [...] SNOMED-CT Code Diagnosis ICD10 Code Diagnosis Note [id number] KEENA LI MD R[facility]UMATOL [facility] [address] [place] [address] 08/03/2024 12:39:40 08/07/2024 04:36:45 Seropositive rheumatoid arthritis 750251207 M05.9 + RF, + synovitis - additional labs as below- prednisone 20 mg tapering by 5 mg every 5 days till off- start methotrexa te 15 mg (6 tablets) weekly- daily 1 mg folic acid- CXR- request last XR of the hands and cervical spine Anemia 036216055 D64.89 May be due to longstandi ng inflammati on - check CBC today Long-term current use of drug therapy 292200987 Z79.899 - labs every 4 weeks x [...] contraindi cated while taking methotrexa te. Fatigue 93212520 R53.82 Fall W19.XXXA - XR of the left ankle today [id number] KEENA LI MD RHEUMATOL [facility] [address] [place] [address] 08/20/2024 14:01:20 08/21/2024 04:19:49 Seropositive rheumatoid arthritis 918526497 M05.9 + RF, + synovitis - prednisone [...] for further evaluation of pancytopen ia Anemia 999839326 D64.89 May be due to longstandi ng inflammati on - check CBC today Long-term current use of drug therapy 729006469 Z79.899 - stopped methotrexa te- will bring back when resolved to discuss next steps when mucositis is resolved Fatigue 56951294 R53.82 - labs today Stomatitis 82001997 K12. 30 This is a dramatic reaction [...] 08/03/2024 2 [place] Hayley A Serina [id number] Hayley A Lesage 08/03/2024 1 [employer] (MEDICARE REPLACEMENT/A DVANTAGE - HMO) [id number] Hayley Serina [id number] Hayley A Lesage 08/22/2024 1 [employer] (MEDICARE REPLACEMENT/A DVANTAGE - PPO) Hayley A Serina [id number] Hayley A Serina Notes Date Note Type Note Provider Name [...] a blockage. She goes to see the marine architect every 6 months. Took prednisone yesterday. She had labs sent with her referral which were notable for mild pancytopenia with white blood cell count 3.9, hemoglobin 11.2, platelets 103. She had elevated inflammatory markers ESR 39 and CRP 38.1 (0-4), CKD with creatinine 1.3, elevated CK1 34. + RF IgM 21, + RF IgA 9. KEENA LI MD [address] [place] [address], [address], [facility] 08/06/2024 20:07:45 08/20/2024 text/html Hayley Hutson [...] a blockage. She goes to see the marine architect every 6 months. Took prednisone yesterday. She [...] slightly, but still present. KEENA LI MD [facility] [place], [address], [facility] 08/20/2024 20:38:21 OBGyn Episode No OBEpisode recorded.
--- OUTSIDE RECORDS SUMMARY | 2024-08-22 15:40 | XMS_ITS | Continuity of Care Document ---
Author Organization [facility], RHEUMATOLOGY [place] Address [address] [place] [address] Care Team Providers Care Weathercaster Name Role Phone BETHANY WOLFE Referring Provider [phone] BETHANY WOLFE Primary Care Provider [phone] KEENA LI Silk Presser Assessment No assessment recorded. Plan of Treatment Reminders Order Date Submit Date Provider Last Modified By Organization Details Last Modified Time Details Appointments CT SCAN 2024 02:20P M ct_scan Not available Not available Not available RHEUM RECHECK 2024 03:30P M KEENA LI MD Not available Not available Not available Lab CBC w/ auto diff 2024 025 [facility], [address] [place] [address], [id number], 08/03/2024 15:27:43 CMP, serum or plasma 2024 025 [facility], [address] [place] [address], [id number], 08/03/2024 15:48:05 ESR (erythro cyte sediment ation rate), blood 2024 025 [facility], [address] [place] [address], [id number], 08/03/2024 18:34:41 C reactive protein, QN, serum or plasma 2024 025 [facility], [address] [place] [address], [id number], 08/03/2024 15:48:02 vitamin D, 25-hydro xy, total, serum 2024 025 [facility], [address] [place] [address], [id number], 08/03/2024 15:34:19 CK (creatin e kinase), total, serum 2024 025 [facility], [address] [place] [address], [id number], 08/03/2024 15:48:03 vitamin B12, serum 2024 025 [facility], [address] [place] [address], [id number], 08/03/2024 15:34:21 folate, serum 2024 025 [facility], [address] [place] [address], [id number], 08/03/2024 15:34:18 TSH, serum, reflex free T4 2024 025 [facility], [address] [place] [address], [id number], 08/03/2024 15:29:12 ccp (cyclic citrulli nated peptide) iga+igg, serum 2024 025 [facility], [address] [place] [address], [id number], 08/05/2024 16:39:40 CBC w/ auto diff [address], [address] [place] [address], [id number], 08/10/2024 08:04:48 CMP, serum or plasma [address], [address] [place] [address], [id number], 08/10/2024 08:04:48 ESR (erythro cyte sediment ation rate), blood [address] [facility], [address] [place] [address], [id number], 08/10/2024 08:04:48 C reactive protein, QN, serum or plasma [address] [facility], [address] [place] [address], [id number], 08/10/2024 08:04:48 Mycobact erium tubercul osis stimulat ed gamma interfer on, qual, blood 2024 [facility], [address] [place] [address], [id number], 08/05/2024 15:38:07 hepatiti s (A+B+C) panel, serum 2024 [facility], [address] [place] [address], [id number], 08/03/2024 15:28:56 Referral None recorded . Procedures None recorded . Surgeries None recorded . Imaging XR, ankle, 3 or more view 2024 [facility], [address] [place] [address], [id number], 08/03/2024 14:30:45 XR, chest, 2 view 2024 [facility], [address] [place] [address], [id number], 08/03/2024 14:26:18 Medication Orders predniso ne 5 mg tablet 2024 [facility], [address], [place], [address], 08/03/2024 13:45:28 methotre xate sodium 2.5 mg tablet 2024 025 [facility], [address], [address], 08/20/2024 15:33:39 folic acid 1 mg tablet 2024 025 [facility], [address], [address], 08/20/2024 15:33:44 Patient TargetsNo targets recorded. Patient Instructions Encounter Date Encounter Id Patient Instructions Last Modified By Organization Details Last Modified Time 08/03/2024 [id number] medical record request* - Please send the X rays on the hands and the cervical spine [email or web address] Not available 08/10/2024 08:04:54 I spent >60 minutes caring for the patient today with counseling, coordinating care, extensive review of outside records, medication management, and documentation. Not available 08/06/2024 20:07:40 Reason for Referral None Reported. Results Created Date Observation Date Name Description Value Unit Range Abnormal Flag Note LastModifiedBy Organization Detail LastModifiedTime 08/04/1908/03/2024 XR, chest , [address] [address] Patien t Name: KHUSHI HUTSON Patichuy t : [birth year] Patien t [...] Diego Longoria MD on 025 2:[address] [facility] [address], [phone], 08/06/2024 14:38:44 08/04/19 25 08/03/2024 XR, ankle , 3 or more view [address] [id number] [phone] Patien t Name: KHUSHI VANGD Patien t : [birth year] Patien t [...] Ryan castaneda MD on 025 2:[address] [facility] [address], [phone], 08/06/2024 14:38:44 Result Notes Documentation Provider Name and Address Organization Details Recorded Time Xr, Chest, 2 View : [address] [id number] Patient Name: KHUSHI Quiroga HARESH Patient : [...] Xr, Ankle, 3 Or More View : [place] [id number] Patient Name: KHUSHI HUTSON Patient : 1950 Patient Ordering Provider: KEENA [...] Name and Address Organization Details Recorded Time 413593 codeine medicatio n Not available Not available Not available 02/02/20162011 2670 RxNorm Comme nt: Creat ed By: Antonieta moreno; Creat ed Date: 2011 8:33: 42 AM; Not Available [facility] 6 05:52:00 [id number] methotrex ate medicatio n other moderate Not available 08/20/2024 6851 RxNorm KEENA LI MD [address] [place] [address], [phone] [place] [address] 16:03:59 Medications Name Sig Start Date Stop [...] Address Organization Details Last Updated DateTime 5 43139.6 7 g 23.9 kg/m2 167.64 cm 61 /min 14 /min 99 % 99 % 122 mm[Hg] 60 mm[Hg] Ramona [facility] 13:14:44 Social History Question Answer Notes LastModified by Organizat ion Details LastModified Time Tobacco Smoking Status Never Smoker [facility] [place] [facility] 08/03/2024 13:13:20 What Was The [...] SNOMED-CT Code Diagnosis ICD10 Code Diagnosis Note [id number] KEENA LI MD RHEUMATOL OGY [address] [place] [address] 08/03/2024 12:39:40 08/07/2024 04:36:45 Seropositive rheumatoid arthritis 481232913 M05.9 + RF, + synovitis - additional labs as below- prednisone 20 mg tapering by 5 mg every 5 days till off- start methotrexa te 15 mg (6 tablets) weekly- daily 1 mg folic acid- CXR- request last XR of the hands and cervical spine Anemia 405625391 D64.89 May be due to longstandi ng inflammati on - check CBC today Long-term current use of drug therapy 636412301 Z79.899 - labs every 4 weeks x [...] contraindi cated while taking methotrexa te. Fatigue 02194267 R53.82 Fall 6583126 W19.XXXA - XR of the left ankle today Health Concerns Section Related Observation LastModified by Organization Detai ls LastModified Time None Recorded Concern Status LastModified by Organization Details LastModified Time None Recorded Payers Encounter Date Sequence Insurance Name Policy Number Policy Roland Covered Member ID Roland Member ID Guarantor Name 08/03/2024 1 [employer] (MEDICARE REPLACEMENT/A DVANTAGE - PPO) Khushi Hutson [id number] Khushi Hutson Notes Date Note Type Note Provider Name and Address Organization Details Recorded Time 08/03/2024 text/html Khushi Hutson is a 74 yo woman with past medical history of hypertension, hyperlipidemia, coronary artery disease status post [place], hypothyroidism who presents for further evaluation of [...] a blockage. She goes to see the nuclear security officer every 6 months. Took prednisone yesterday. She had labs sent with her referral which were notable for mild pancytopenia with white blood cell count 3.9, hemoglobin 11.2, platelets 103. She had elevated inflammatory markers ESR 39 and CRP 38.1 (0-4), CKD with creatinine 1.3, elevated CK1 34. + RF IgM 21, + RF IgA 9. KEENA LI MD [address] [place], [address], [place] [facility] 08/06/2024 20:07:45 OBGyn Episode No OBEpisode recorded.
--- OUTSIDE RECORDS SUMMARY | 2024-08-22 15:40 | XMS_ITS | Clinical Summary ---
Author Organization [facility] Address [address] [place] [address] Care Team Providers Care Radio Host Name Role Phone Diego López APRN Primary Care Provider [phone] Allergies Active Allergy Reactions Criticality Noted Date [...] Team Description 06/25/2024 10:00 AM EDT Consult [facility] [address] [place] [address] Ganesh Chen MD Stage 3 chronic kidney disease, unspecified [...] Description 07/08/2025 12:40 PM EDT Office Visit [facility] [address] [place] [address] Ganesh Chen MD [address] [place] [phone] Health Maintenance Due Date Last Done Comments [...] - Risk 60-74 years 1-dose series) 2011 [id number] Vaccine (3 - Pfizer risk series) 01/24/2021 [...] this topic Insurance [employer] MEDICARE Care Teams Radio Host Relationship Specialty Start Date End Date Diego López APRN [address] [place] [address] [place] [phone] (work) PCP - General 07/21/20
--- OUTSIDE RECORDS SUMMARY | 2024-08-22 15:40 | XMS_ITS | Continuity of Care Document ---
Author Organization [facility], RHEUMATOLOGY [facility] Address [address] [place] [address] Care Team Providers Care Splicing Technician Name Role Phone BETHANY WOLFE Referring Provider [phone] BETHANY WOLFE Primary Care Provider KEENA LI Poultry Feed Supervisor Assessment No assessment recorded. Plan of Treatment Reminders Order Date Submit Date Provider Last Modified By Organization Details Last Modified Time Details Appointments CT SCAN 2024 02:20P M ct_scan Not available Not available Not available RHEUM RECHECK 2024 03:30P M KEENA LI MD Not available Not available Not available Lab CBC w/ auto diff 2024 025 [facility], [address] [place] [address], [id number], 08/20/2024 21:30:30 CMP, serum or plasma 2024 025 [facility], [address] [place] [address], [address], 08/20/2024 19:03:00 Referral None recorded . Procedures None recorded . Surgeries None recorded . Imaging None recorded . Medication Orders predniso ne 5 mg tablet 2024 025 [facility], [address], [address], 08/20/2024 16:09:49 Valtrex 1 gram tablet 2024 025 [facility], [address] [place] [address], [address], 08/20/2024 16:09:47 Compound Magic Mouthwas h #10 (Dipheny dramine/ Nystatin /Maalox/ Lidocain e 1:1:1:1) 2024 025 [facility], [address] [place], [address], 08/20/2024 16:09:46 Patient TargetsNo targets recorded. Patient InstructionsNo instructions recorded. Reason for Referral None Reported. Results Created Date Observation Date Name Description Value Unit Range Abnormal Flag Note LastModifiedBy Organization Detail LastModifiedTime 08/04/1908/03/2024 XR, chest , [address] [address] Patien t Name: KHUSHI Quiroga HARESH Patien t : [birth year] Patien t [...] Diego Longoria MD on 025 2:21 PM [facility] Rad[facility] [address] [place] [address], [phone], 08/06/2024 14:38:44 08/04/1908/03/2024 XR, ankle , 3 or more view [address] [address] Patien t Name: KHUSHI murray : [birth year] Patichuy t Orderi ng Provid er: KEENA LUGO EXAM DATE: 2024 EXAM: XR LT ANKLE [...] Ryan castaneda MD on 025 2:25 PM [facility] [address] [place] [address], [address], 08/06/2024 14:38:44 Result Notes None recorded. Medical Equipment None Reported. Allergies Allergen ID Allergen Name Allergen Category Reaction Reaction Severity Criticality Documentation Date Start Date Code Code System Note Provider Name and Address Organization Details Recorded Time 226161 codeine medicatio n Not available Not available Not available 02/02/20162011 2670 RxNorm Comme nt: Creat ed By: Antonieta moreno; Creat ed Date: 2011 8:33: 42 AM; Not Available [facility] 6 05:52:00 198964 methotrex ate medicatio n other moderate Not available 08/20/2024 6851 RxNorm KEENA LI MD [address] [place] [address], [phone], [facility] 06/13/202 5 16:03:59 Medications Name Sig Start Date Stop [...] Updated DateTime 5 167.64 cm 23.6 kg/m2 29999.4 9 g 14 /min 87 /min 97 % 97 % 110 mm[Hg] 70 mm[Hg] [facility] 15:32:24 Social History Question Answer Notes LastModified by Organizat ion Details LastModified Time Tobacco Smoking Status Never Smoker [facility] 08/03/2024 13:13:20 What Was The [...] SNOMED-CT Code Diagnosis ICD10 Code Diagnosis Note [id number] KEENA LI MD RHEUMATOL [facility] [address] [place] [address] 08/03/2024 12:39:40 08/07/2024 04:36:45 Seropositive rheumatoid arthritis 121849219 M05.9 + RF, + synovitis - additional labs as below- prednisone 20 mg tapering by 5 mg every 5 days till off- start methotrexa te 15 mg (6 tablets) weekly- daily 1 mg folic acid- CXR- request last XR of the hands and cervical spine Anemia 650144171 D64.89 May be due to longstandi ng inflammati on - check CBC today Long-term current use of drug therapy 499252277 Z79.899 - labs every 4 weeks x [...] contraindi cated while taking methotrexa te. Fatigue 84571775 R53.82 Fall 6391588 W19.XXXA - XR of the left ankle today [id number] KEENA LI MD [facility]ATOL [facility] [address] [place] [address] 08/20/2024 14:01:20 08/21/2024 04:19:49 Seropositive rheumatoid arthritis 435796496 M05.9 + RF, + synovitis - prednisone [...] for further evaluation of pancytopen ia Anemia 867795162 D64.89 May be due to longstandi ng inflammati on - check CBC today Long-term current use of drug therapy 649813833 Z79.899 - stopped methotrexa te- will bring back when resolved to discuss next steps when mucositis is resolved Fatigue 60224997 R53.82 - labs today Stomatitis 50836310 K12. 30 This is a dramatic reaction to methotrexa te. She has had 2 doses and her last dose was 6/. Symptoms started 08/12, so clearly I think [...] 1 [employer] (MEDICARE REPLACEMENT/A DVANTAGE - PPO) Khushideep Hutson [id number] Khushi A Haresh Notes Date Note Type Note Provider Name and Address Organization Details Recorded Time 08/20/2024 text/html Khushi Hutson is a 74 yo woman with past medical history of hypertension, hyperlipidemia, coronary artery disease status post [place], hypothyroidism who presents for further evaluation of [...] a blockage. She goes to see the managing partner every 6 months. Took prednisone yesterday. She [...] but still present. KEENA LI MD [address] [place], [address], [facility] 08/20/2024 20:38:21 OBGyn Episode No OBEpisode recorded.
[2024-08-22 15:45] LABS: Hemoglobin 8.8 g/dL (12.2-16.2)
[2024-08-22] MEDS: SUCRALFATE 1GM TABLET 1 GM PO ×2 (17:28→20:13)
[2024-08-22] MEDS: *PAT OWN MED* ATORVASTATIN 20MG TABLET 20 MG PO (20:13)
[2024-08-22] MEDS: PATIENT'S OWN HOME MEDICATION (Valacyclovir 1 gram tablet) 1000 EACH PO (20:14)
[2024-08-23] VITALS (15 sets, daily range): BP systolic 82–152; BP diastolic 50–84; PULSE 59–81; RESP 16–20; TEMP 36.1–38; O2SAT 91–99; BMI 23.7
--- NOTE | 2024-08-23 05:49 | PC.NURSE ---
Pt is A&Ox4. Pt has rested well this shift and has had no complaints. Pt Hgb is currently 8.8. Pt has been NPO since 0000 due to planned EGD this am. Pt has had no acute changes to note this shift.
[2024-08-23] MEDS: SUCRALFATE 1GM TABLET 1 GM PO ×4 (06:19→20:19)
[2024-08-23] MEDS: LEVOTHYROXINE 88 MCG PO (06:19)
[2024-08-23] MEDS: ACETAMINOPHEN 325MG TAB 650 MG PO (06:21)
[2024-08-23 07:10] LABS: Basophils % 0.4 % (0.1-2.0); Eosinophils # 0.1 Kmm3 (0.0-0.4); Eosinophils % 2.9 % (0.1-12.0); Hematocrit 21.1 % (37.0-47.0); Immature Granulocytes # 0.28 10^3uL; Immature Granulocytes % 11.5 %; Lymphocytes # 0.6 K/mm3 (0.7-4.5); Lymphocytes % 23.9 % (10-50); Mean Corpuscular HGB Conc 34.1 g/dL (31.8-35.4); Mean Corpuscular Hemoglobin 29.9 pg (27.0-31.2); Mean Corpuscular Volume 87.6 fl (81-99); Mean Platelet Volume 10.3 fl (7.4-10.4); Monocytes # 0.2 K/mm3 (0.1-1.0); Monocytes % 7.8 % (1.7-9.3); Neutrophils # 1.3 K/mm3 (1.8-7.8); Neutrophils % 53.5 % (37.0-80.0); Nucleated Red Blood Cells # 0 10^3/uL; Nucleated Red Blood Cells % 0 %; Platelet Count 266 K/mm3 (142-424); Red Blood Count 2.41 M/mm3 (4.20-5.40); Red Cell Distribution Width 18.4 % (11.5-17.5); Red Cell Distribution Width-SD 52.9 fL; White Blood Count 2.4 K/mm3 (4.8-10.8)
[2024-08-23 07:14] LABS: MANUAL DIFFERENTIAL MANUAL DIFFERENTIAL (MANUAL DIFF)
[2024-08-23 07:15] LABS: Albumin Level 2.3 g/dl (3.5-5.0); Chloride 109 mmol/L (98-107); Sodium 131 mmol/L (136-145)
[2024-08-23 07:16] LABS: Potassium 3.5 mmoL/L (3.5-5.1)
[2024-08-23 07:18] LABS: Alanine Aminotransferase 14 U/L (12-78); Albumin/Globulin Ratio 0.9 (1.1-1.8); Anion Gap 3.5 mEq/L (5-15); Aspartate Amino Transferase 17 U/L (14-36); Blood Urea Nitrogen 11 mg/dl (7-17); Carbon Dioxide 22 mmol/L (22.0-30.0); Creatinine Clearance Estimated 44 mL/min (50-200); Estimated Glomerular Filt Rate 44 ml/min (>60); GFR (African American) 53 ML/MIN (>60); Globulin 2.6 g/dL (1.3-3.2); Total Protein,Serum 4.9 g/dl (6.3-8.2)
[2024-08-23 07:19] LABS: Alkaline Phosphatase 64 U/L (38-126); Bilirubin,Total 0.4 mg/dl (0.2-1.3); Calcium 7.5 mg/dl (8.4-10.2); Glucose 81 mg/dl (74-100); Magnesium 1.7 mg/dl (1.6-2.3)
--- NOTE | 2024-08-23 07:20 | EXP.GE.CONS ---
History of Present Illness *Admission Date: 08/20/24 *History of present illness: Mrs. Hutson is a 74-year-old female who was sent to the emergency department after having outpatient blood work showing a low hemoglobin of 5.7. Her baseline hemoglobin was 9.8. The patient had been started on methotrexate for rheumatoid arthritis by her senior data integration developer in [place]. She did have mucositis and this was discontinued. The patient is also taking prednisone and baby aspirin. The patient reports having black melanotic stools 5-6 times on or Friday and this extended into Friday after she was admitted. She reports no hematemesis or abdominal pain. Her last EGD was more than a decade ago. She reports no prior GI bleeding. The patient has received blood transfusions. Her most recent hemoglobin hematocrit yesterday was 8.8 and 27.3. Her hematocrit dropped down again to 21.1 this morning. She is pancytopenic (? Related to methotrexate) yet her platelet count has rebounded to 266,000 from 93,000 on admission. [facility] Disclaimer: The information contained in this section may have been updated after the patient was seen, as this information can be updated by other users. Medical History Cough Patient report dry cough, patient was dx allergic rhinitis on Fri will add flonase and prescribe Benzonate for cough and strict follow up with PCP if symptoms persist or worsen Hypothyroidism History of myocardial infarct at age greater than 60 years Skin lesion of upper extremity Thrombocytopenia Past heart attack Surgical History History of right heart catheterization H/O tubal ligation Family History Other Family history of cancer Family history of stroke Social History (Updated 08/20/24 @ 23:19 by Christine Gregory RN) Smoking Status: Never smoker alcohol intake: never substance use type: denies use current occupational status: retired Travel in the last 8 weeks?: None Have you lived/traveled outside US in past 30 days?: No Contact w/someone who lives/traveled outside US past 30 days?: No Exposure to someone with infectious disease in past 14 days?: No Do you have a fever (greater than 100.4 F or 38 C)?: No Have you tested positive for COVID-19?: No Exposed to someone with COVID-19 in past 14 days?: No Do you have a sore throat?: No Do you have a cough?: No Do you have any weakness?: No Do you have any diarrhea?: No Are you experiencing any unusual bleeding?: No Do you have any muscle aches/pain?: No Do you have any abdominal pain?: No Are you experiencing loss of taste or smell?: No Meds Home Medications and Allergies Home Medications ?Medication ?Instructions ?Recorded ?Confirmed ?Type aspirin 81 mg tablet,delayed 81 mg PO DAILY 04/10/17 08/21/24 History release (Adult Low Dose Aspirin) leucovorin calcium 15 mg tablet 15 mg PO DAILY #7 tabs 08/17/24 08/20/24 Rx atorvastatin 20 mg tablet 20 mg PO HS 08/20/24 08/20/24 History bisoprolol fumarate 5 mg tablet 2.5 mg PO DAILY 08/20/24 08/20/24 History levothyroxine 88 mcg tablet 88 mcg PO DAILY 08/20/24 08/20/24 History losartan 100 mg tablet 100 mg PO DAILY 08/20/24 08/20/24 History prednisone 5 mg tablet 5 mg PO DAILY 08/21/24 08/21/24 History valacyclovir 1 gram tablet 1,000 mg PO BID 08/21/24 08/21/24 History New Prescriptions to Start Prescriptions: Allergies Allergy/AdvReac Type Severity Reaction Status Date / Time codeine (CODEINE) Allergy Mild NA-NAUSEA/V Verified 06/16/24 09:08 OMITING Exam (Inpt) Vital signs and Labs for Last 24 Hours: Temp Pulse Resp BP Pulse Ox O2 Del Method 100.4 F H 73 16 145/81 H 96 Room Air 08/23/24 04:00 08/23/24 04:00 08/23/24 04:00 08/23/24 04:00 08/23/24 04:00 08/23/24 06:42 Laboratory Results - last 24 hr 08/22/24 08:10: WBC 2.1 L, RBC 2.61 L, Hgb 7.3 L, Hct 22.2 L, MCV 85.1, MCH 28.0, MCHC 32.9, RDW 18.2 H, Plt Count 158 D, MPV 10.2, Neut % (Auto) 60.3, Lymph % (Auto) 20.8, [place] % (Auto) 7.5, Eos % (Auto) 2.4, Baso % (Auto) 0.5, Neut # (Auto) 1.3 L, Lymph # (Auto) 0.4 L, [place] # (Auto) 0.2, Eos # (Auto) 0.1, Baso # (Auto) 0.0, Total Counted 100, Neutrophils % (Manual) 76, Lymphocytes % (Manual) 20, Monocytes % (Manual) 4, Nucleated RBCs 1, Platelet Estimate Normal, RBC Morphology Normal, Sodium 133 L, Potassium 4.0, Chloride 109 H, Carbon Dioxide 22, Anion Gap 6.0, BUN 13, Creatinine 1.00, Estimated Creat Clear 53, Estimated GFR 54 L, Est GFR ( Amer) 66, Glucose 88, Calcium 7.6 L, Total Bilirubin 0.6, AST 16, ALT 16 D, Alkaline Phosphatase 64, Total Protein 5.0 L, Albumin 2.4 L D, Globulin 2.6, Albumin/Globulin Ratio 0.9 L 08/22/24 15:30: Hgb 8.8 L D, Hct 27.3 L 08/23/24 05:57: WBC 2.4 L, RBC 2.41 L, Hct 21.1 L, MCV 87.6, MCH 29.9, MCHC 34.1, RDW 18.4 H, Plt Count 266 D, MPV 10.3, Neut % (Auto) 53.5, Lymph % (Auto) 23.9, [place] % (Auto) 7.8, Eos % (Auto) 2.9, Baso % (Auto) 0.4, Neut # (Auto) 1.3 L, Lymph # (Auto) 0.6 L, [place] # (Auto) 0.2, Eos # (Auto) 0.1, Baso # (Auto) 0.0 I & O for Labs for Last 24 Hours: Intake & Output 08/20/24 08/21/24 08/22/24 08/23/24 23:59 23:59 23:59 23:59 Intake Total 60 / 60 1210 / 1210 240 / 240 Output Total 600 / 600 0 / 0 0 / 0 Balance 60 / 10 610 / 610 0 / 240 240 / 240 Weight 146 lb 146 lb 3.2 oz 147 lb 9 oz 147 lb 9.168 oz Comments:: Normoactive bowel sounds, soft, benign abdomen Results Labs 08/23/24 05:57 08/22/24 08:10 Labs: Laboratory Results - last 24 hr 08/22/24 08:10: WBC 2.1 L, RBC 2.61 L, Hgb 7.3 L, Hct 22.2 L, MCV 85.1, MCH 28.0, MCHC 32.9, RDW 18.2 H, Plt Count 158 D, MPV 10.2, Neut % (Auto) 60.3, Lymph % (Auto) 20.8, [place] % (Auto) 7.5, Eos % (Auto) 2.4, Baso % (Auto) 0.5, Neut # (Auto) 1.3 L, Lymph # (Auto) 0.4 L, [place] # (Auto) 0.2, Eos # (Auto) 0.1, Baso # (Auto) 0.0, Total Counted 100, Neutrophils % (Manual) 76, Lymphocytes % (Manual) 20, Monocytes % (Manual) 4, Nucleated RBCs 1, Platelet Estimate Normal, RBC Morphology Normal, Sodium 133 L, Potassium 4.0, Chloride 109 H, Carbon Dioxide 22, Anion Gap 6.0, BUN 13, Creatinine 1.00, Estimated Creat Clear 53, Estimated GFR 54 L, Est GFR ( Amer) 66, Glucose 88, Calcium 7.6 L, Total Bilirubin 0.6, AST 16, ALT 16 D, Alkaline Phosphatase 64, Total Protein 5.0 L, Albumin 2.4 L D, Globulin 2.6, Albumin/Globulin Ratio 0.9 L 08/22/24 15:30: Hgb 8.8 L D, Hct 27.3 L 08/23/24 05:57: WBC 2.4 L, RBC 2.41 L, Hct 21.1 L, MCV 87.6, MCH 29.9, MCHC 34.1, RDW 18.4 H, Plt Count 266 D, MPV 10.3, Neut % (Auto) 53.5, Lymph % (Auto) 23.9, [place] % (Auto) 7.8, Eos % (Auto) 2.9, Baso % (Auto) 0.4, Neut # (Auto) 1.3 L, Lymph # (Auto) 0.6 L, [place] # (Auto) 0.2, Eos # (Auto) 0.1, Baso # (Auto) 0.0 Assessment and Plan *Assessment and plan (1) Anemia due to gastrointestinal blood loss: Status: Acute Category: Medical Code(s): D50.0 - Iron deficiency anemia secondary to blood loss (chronic) (2) Black stools: Status: Acute Category: Medical Code(s): K92.1 - Melena (3) Melena: Status: Acute Category: Medical Code(s): K92.1 - Melena Plan 1. Black stools/presumed melena with acute anemia. I will plan upper endoscopy today for further assessment of probable upper GI bleed. She is pancytopenic which I presume may be related to the methotrexate. Her hematocrit dropped again this morning but she appears hemodynamically stable.
--- NOTE | 2024-08-23 08:00 | US_ITS ---
FINAL REPORT CLINICAL HISTORY: Evaluate for cirrhosis COMPARISON: None FINDINGS: Sonographic images of the right upper quadrant were obtained. The pancreas is partially obscured. There is fatty infiltration of the liver. Sludge is present in the gallbladder. There is no evidence of biliary ductal dilatation.The common duct measures 7.6 mm. Limited images of the right kidney are unremarkable. IMPRESSION: Fatty infiltration of the liver. Sludge is present in the gallbladder. Reviewed, Interpreted and Dictated by Benji Gaffney MD Transcribed by Evita Luque Authenticated and [facility]
[2024-08-23 08:46] LABS: Thyroid Stimulating Hormone 7.84 uIU/mL (0.465-4.68)
--- NOTE | 2024-08-23 08:47 | P.PNANES_ITS ---
[facility] Disclaimer: The information contained in this section may have been updated after the patient was seen, as this information can be updated by other users. Medical History Cough Patient report dry cough, patient was dx allergic rhinitis on Wed will add flonase and prescribe Benzonate for cough and strict follow up with PCP if symptoms persist or worsen Hypothyroidism History of myocardial infarct at age greater than 60 years Skin lesion of upper extremity Thrombocytopenia Past heart attack Surgical History History of right heart catheterization H/O tubal ligation Family History Other Family history of cancer Family history of stroke Social History (Updated 08/20/24 @ 23:19 by Christine Gregory RN) Smoking Status: Never smoker alcohol intake: never substance use type: denies use current occupational status: retired Travel in the last 8 weeks?: None Have you lived/traveled outside US in past 30 days?: No Contact w/someone who lives/traveled outside US past 30 days?: No Exposure to someone with infectious disease in past 14 days?: No Do you have a fever (greater than 100.4 F or 38 C)?: No Have you tested positive for COVID-19?: No Exposed to someone with COVID-19 in past 14 days?: No Do you have a sore throat?: No Do you have a cough?: No Do you have any weakness?: No Do you have any diarrhea?: No Are you experiencing any unusual bleeding?: No Do you have any muscle aches/pain?: No Do you have any abdominal pain?: No Are you experiencing loss of taste or smell?: No [facility] Anesthesia Checklist Patient Identification Patient Identification: Verbal (Name & ) Structural Data Admitted From: Inpatient Planned Operative Procedure/s: egd NPO Status Verified Time NPO: 00:00 Additional verifications Anesthesia Reactions: No Hx Blood Transfusions: No Blood Transfusion Reaction: No Airway Assessment Mallampati Score:: Class II C-Spine Mobility Assessed: Yes TMJ Mobility Assessed: Yes Dentition: Edentulous Neurological Assessment Level of Consciousness: Awake, Alert and Appropriate Anesthesia Plan Anesthesia Risk discussed: Yes Anesthesia Plan: Verified ASA Class: III Anesthesia Type: MAC
--- NOTE | 2024-08-23 09:01 | HMH.PROCNOTE ---
[facility] Procedure Note Date: 08/23/24 Time: 09:14 Procedure Note:: Upper Endoscopy Procedure Report: Esophagogastroduodenoscopy with APC ablation, cold biopsies and TTS balloon dilation Endoscopost: Mp Mckenna II, MD Referring Physician: Miguel Wallace DO Date of Procedure: August 23, 2024 Equipment: Olympus GIF 190 standard upper endoscope Sedation: MAC sedation Indications: Mrs. Hutson is a 74-year-old female who is admitted and here for EGD secondary to GI bleed. She was originally sent to the emergency department after having outpatient blood work showing a low hemoglobin of 5.7. Her baseline hemoglobin was 9.8. The patient had been started on methotrexate for rheumatoid arthritis by her hr specialist in [place]. She did have mucositis and this was discontinued. The patient is also taking prednisone and baby aspirin. The patient reports having black melanotic stools 5-6 times on or Friday and this extended into Friday after she was admitted. She reports no hematemesis or abdominal pain. Her last EGD was more than a decade ago. She reports no prior GI bleeding. The patient has received blood transfusions. Her most recent hemoglobin hematocrit yesterday was 8.8 and 27.3. Her hematocrit dropped down again to 21.1 this morning. She is pancytopenic (? Related to methotrexate) yet her platelet count has rebounded to 266,000 from 93,000 on admission. Procedure: Prior to the procedure, a history and physical exam was performed, and patient's medications and allergies were reviewed. The risks, benefits and alternatives of the sedation and procedure were discussed with the patient. All questions were answered and informed consent was obtained. The patient was brought to the procedure room. Patient identification and proposed procedure were verified by the physician and the nurse. The patient was placed in a left lateral decubitus position and the scope was passed under direct vision. Throughout the procedure, the patient's blood pressure, pulse, and oxygen saturations were monitored continuously. The upper GI endoscopy was accomplished without difficulty. The patient tolerated the procedure well. Findings: The scope was passed directly into the upper esophagus and advanced to the third portion of the duodenum. There was some scalloping of the conniventes in the first portion and biopsies were obtained to rule out celiac disease. There was mild peptic duodenitis of the duodenal bulb. The scope was withdrawn through a normal pylorus into the stomach. There were several scattered angiodysplasias in the antrum and body of the stomach and at least 8-10 angiodysplasias were ablated using APC ablation/coagulation. Upon retroflexion there was a moderate-sized 5 to 6 cm hiatal hernia without Zechariah's erosions. Cold biopsies were taken along the lesser curvature. The scope was then withdrawn into the esophagus. There was a distal Schatzki's ring. This was dilated to 60 [place]/20 mm with a TTS hydrostatic balloon. The remainder of the esophageal mucosa was normal. Impression: 1. Schatzki's ring status post dilation to 20 mm with moderate-sized 5 to 6 cm hiatal hernia 2. Scattered gastric AVMs/angiodysplasia status post APC ablation/coagulation 3. Minor scalloping of duodenal conniventes with mild peptic duodenitis Plan: I will follow-up the biopsies. I do feel that she has primarily chronic GI blood loss from the gastric angiodysplasias. The patient's iron studies are normal with normal MCV. I will check B12 and folate levels.
[2024-08-23 09:51] LABS: Eosinophils % 8 % (0-3); Lymphocytes % 34 % (10-50); Monocytes % 4 % (2-9); Neutrophils % 52 % (42-76); Total Cells Counted 100
[2024-08-23 09:52] LABS: Platelet Estimate Normal; RBC Morphology Normal
[2024-08-23] MEDS: LOSARTAN 100 MG 1 EACH PO (10:03)
[2024-08-23] MEDS: BISOPROLOL 5 MG 2.5 MG PO (10:03)
[2024-08-23] MEDS: PANTOPRAZOLE 40MG VIAL 40 MG IV ×2 (10:03→20:19)
[2024-08-23 10:09] LABS: Hemoglobin 7.3 g/dL (12.2-16.2)
--- NOTE | 2024-08-23 10:16 | P.PN_ITS ---
<Statement entered by Rikki Gamez MD - 08/23/24 14:21> Rounded on patient after nurse practitioner. Personally examined and interviewed patient. Agree with exam findings and care plan as documented. Subjective *Date: 08/23/24 *Time: 13:21 Interval history: Patient sitting up in bed, just returned from her EGD with Dr. Mckenna. Patient has no complaints at this time. EGD showed angiodysplasias which were cauterized during her procedure. Will advance patient's diet today. Patient denies abdominal pain, shortness of breath, chest pain. Medical Exam Vital signs and Labs for Last 24 Hours: Vital Signs Temp Pulse Pulse Pulse Pulse Resp BP 08/23/24 10:00 59 L 17 08/23/24 09:45 98.2 F 65 19 08/23/24 09:29 65 18 104/67 L 08/23/24 09:19 97.0 F L 68 16 82/50 L 08/23/24 08:57 08/23/24 08:50 100.4 F H 73 16 08/23/24 08:00 08/23/24 06:42 08/23/24 05:00 08/23/24 04:00 100.4 F H 73 16 08/23/24 04:00 70 08/23/24 03:00 08/23/24 01:00 08/23/24 00:00 70 08/23/24 00:00 99.1 F 71 16 08/22/24 23:00 08/22/24 20:39 08/22/24 20:00 80 08/22/24 20:00 100.4 F H 68 16 08/22/24 19:28 08/22/24 18:28 08/22/24 17:00 08/22/24 16:00 98.1 F 77 16 08/22/24 15:18 70 08/22/24 15:00 08/22/24 13:00 08/22/24 12:00 97.9 F 69 16 08/22/24 11:00 BP Pulse Ox O2 Del Method 08/23/24 10:00 150/82 H 99 Room Air 08/23/24 09:45 120/78 93 L Room Air 08/23/24 09:29 97 Room Air 08/23/24 09:19 93 L Room Air 08/23/24 08:57 Room Air 08/23/24 08:50 145/81 H 96 Room Air 08/23/24 08:00 Room Air 08/23/24 06:42 Room Air 08/23/24 05:00 Room Air 08/23/24 04:00 145/81 H 96 Room Air 08/23/24 04:00 08/23/24 03:00 Room Air 08/23/24 01:00 Room Air 08/23/24 00:00 08/23/24 00:00 117/66 96 Room Air 08/22/24 23:00 Room Air 08/22/24 20:39 Room Air 08/22/24 20:00 08/22/24 20:00 134/71 96 Room Air 08/22/24 19:28 Room Air 08/22/24 18:28 Room Air 08/22/24 17:00 Room Air 08/22/24 16:00 131/59 L 98 Room Air 08/22/24 15:18 08/22/24 15:00 Room Air 08/22/24 13:00 Room Air 08/22/24 12:00 115/63 94 L 08/22/24 11:00 Room Air Intake and Output 08/22/24 08/23/24 08/23/24 23:59 07:59 15:59 Intake Total 240 / 240 Output Total 0 / 0 Balance 240 / 240 Intake: Intake, Oral Amount 240 / 240 Output: Output, Urine Amount 0 / 0 Other: Number of Unmeasured Voids 1 Weight 66.938 kg Patient Weight 08/23/24 23:59 Weight 66.938 kg Laboratory Results - last 24 hr 08/22/24 08:10: Total Counted 100, Neutrophils % (Manual) 76, Lymphocytes % (Manual) 20, Monocytes % (Manual) 4, Nucleated RBCs 1, Platelet Estimate Normal, RBC Morphology Normal 08/22/24 15:30: Hgb 8.8 L D, Hct 27.3 L 08/23/24 05:57: WBC 2.4 L, RBC 2.41 L, Hgb 7.3 L D, Hct 21.1 L, MCV 87.6, MCH 29.9, MCHC 34.1, RDW 18.4 H, Plt Count 266 D, MPV 10.3, Neut % (Auto) 53.5, Lymph % (Auto) 23.9, [place] % (Auto) 7.8, Eos % (Auto) 2.9, Baso % (Auto) 0.4, Neut # (Auto) 1.3 L, Lymph # (Auto) 0.6 L, [place] # (Auto) 0.2, Eos # (Auto) 0.1, Baso # (Auto) 0.0, Total Counted 100, Neutrophils % (Manual) 52, Lymphocytes % (Manual) 34, Monocytes % (Manual) 4, Eosinophils % (Manual) 8 H, Basophils % (Manual) 2.0 H, Platelet Estimate Normal, RBC Morphology Normal, Sodium 131 L, Potassium 3.5, Chloride 109 H, Carbon Dioxide 22, Anion Gap 3.5 L, BUN 11, Creatinine 1.20 H, Estimated Creat Clear 44, Estimated GFR 44 L, Est GFR ( Amer) 53 L, Glucose 81, Calcium 7.5 L, Magnesium 1.7, Total Bilirubin 0.4, AST 17, ALT 14, Alkaline Phosphatase 64, Total Protein 4.9 L, Albumin 2.3 L , Globulin 2.6, Albumin/Globulin Ratio 0.9 L, TSH 7.84 H I & O for Labs for Last 24 Hours: Intake & Output 08/20/24 08/21/24 08/22/24 08/23/24 23:59 23:59 23:59 23:59 Intake Total 60 / 60 1210 / 1210 240 / 240 Output Total 600 / 600 0 / 0 0 / 0 Balance 60 / 10 610 / 610 0 / 240 240 / 240 Weight 66.224 kg 66.315 kg 66.933 kg 66.938 kg Constitutional: Present no acute distress Head: Present atraumatic Neck: Present normal inspection Respiratory: Present CTA bilaterally and able to speak in complete sentences Cardiac: Present Reg Rate and Rhythm GI: Present soft; Absent distention or tenderness Rectal (female): Present deferred (female): Present deferred Extremities: Present normal inspection and full ROM Skin: Present intact Additional Findings:: Sores on patient's lips and mouth. 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 transplanted heart: [place] heart Qualified Code(s): I25.10 - Atherosclerotic heart disease of [place] coronary artery without angina pectoris Category: Medical Code(s): I25.10 - Atherosclerotic heart disease of [place] coronary artery without angina pectoris (6) HTN (hypertension): Status: Chronic Qualifiers: Hypertension type: essential hypertension Qualified Code(s): I10 - Essential (primary) hypertension Category: Medical Code(s): I10 - Essential (primary) hypertension (7) HLD (hyperlipidemia): Status: Chronic Qualifiers: Hyperlipidemia type: mixed hyperlipidemia Qualified Code(s): E78.2 - Mixed hyperlipidemia Category: Medical Code(s): E78.5 - Hyperlipidemia, unspecified (8) Hypothyroidism: Status: Acute Qualifiers: Hypothyroidism type: other Qualified Code(s): E03.8 - Other specified hypothyroidism Category: Medical Code(s): E03.9 - Hypothyroidism, unspecified (9) Severe protein-calorie malnutrition: Status: Acute Category: Medical Code(s): E43 - Unspecified severe protein-calorie malnutrition Plan Hayley Hutson is a 74-year-old female who presented with weakness, black stools and was admitted for suspected GI bleed and acute on chronic anemia. #Suspected upper GI bleed #Acute on chronic anemia #Black tarry stools ? About 1 week onset of black tarry stools, weakness. Initial hemoglobin 5.7, improved to 8.1 after 2 units transfusion. Today hemoglobin is 7.3. Venofer 200 mg IV ordered. ? Patient continues to have dark stools, though improving and getting more clear per patient. FOBT positive. ? Patient remains hemodynamically stable. ? Continue IV Protonix 40 mg twice daily, Carafate with meals. ? Continuous cardiac telemetry. ? Every 12 hours H&H, will transfuse if hemoglobin below 7. ? GI consulted, EGD this morning shows multiple angiodysplasias, which were cauterized. She also had a Schatzki's ring was dilated during the EGD procedure. ?Patient denies melena or tarry stools since Friday. #Pancytopenia ? Following with oncology outpatient, with no clear etiology at this time. Suspecting rheumatological disease. Bone marrow biopsy unremarkable. ? Had been taking methotrexate for rheumatoid arthritis, but discontinued after mouth and lip sores. Acyclovir 1000 mg twice daily. ? Considered cirrhosis but patient has no known alcohol use disorder or history of hepatitis. Albumin low however. ? Follow-up liver ultrasound. ? Continue following up with Dr. Nixon outpatient. #CKD stage III ? Creatinine lightly elevated from yesterday, 1.2. GFR 44. Stable. Avoid nephrotoxins, [place] dose medications. #CAD #Hypertension #Hyperlipidemia ? Continue home bisoprolol, atorvastatin. Holding home aspirin due to GI bleed. #Hypothyroidism ? Continue home levothyroxine 88 mcg. TSH 7.84, will discuss changes to levothyroxine at discharge. Full code Ambulate as tolerated DVT prophylaxis: Hold AC due to GI bleed
[2024-08-23] MEDS: IRON SUCROSE COMPLEX 200 MG in 0.9 % SODIUM CHLORIDE 100 ML 220 MG IV (11:15)
--- NOTE | 2024-08-23 14:02 | HMH.OTEV ---
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 Patient has a known history of thrombocytopenia as well as rheumatoid arthritis. Patient has recently been started on methotrexate and had routine blood work done by her printed circuit boards solder leveler and around 8 PM this evening was told to come to the ER for a blood transfusion. Patient does not know what her lab results showed. Patient herself has no shortness of breath chest pain fever chills hemoptysis hematochezia melena nausea vomit diarrhea. She did have a reaction to the methotrexate during the second week and it was thus stopped. Subjective I do pretty good. Pt was supine in bed when therapy arrived. Nursing and son was present. nursing reported they just came back from EGG. pt agreed to complete initial OT evaluation this morning. Pt orient x3. pt reported they live with sonadriano in single story home with 2 steps in front and 3 steps in back with hand rails. pt reported they do not use a walker or cane and they do not have a shower chair or grab bars. pt reported they are ind in AADL and can perform IADLs, son does assist when needed. pt reported they still drive. pt reported they have fell 1x in past 30 days. No theract was performed due to pt just having EGG performed and nursing assessing vitals. Pt left supine in bed with call light and all other needs within reach. Objective Patient Orientation Person,Place,Birthday Decrease in Yes Endurance Rehab OT IP prob,goals,plan Problems Date of Evaluation: 08/23/24 OT IP Problems Bed Mobility,Transfers,Balance,Self care,Safety Rehab Potential Rehab Potential Good Equipment Needs Assistive Devices Standard Walker Plan OT intervention Plan Bed Mobility,Transfers,Balance,Self care,Safety, Therapeutic Exercise OT Plan Frequency Daily Duration LOS Discharge Goals Bed Mobility Ability Standby Assistance Sit to Stand Chair Minimal x 1 (25% assist) Transfer Ability Chair Transfer Minimal x 1 (25% assist) Ability Chair Transfer Sit to/from Ambulatory Technique Chair Transfer Standard Walker Assistive Devices Feeding Ability Assist with Tray Set Up Commode/Toilet Raised Toilet Seat,Toilet Rails,Grab Bars Transfer Assistive Devices Decrease in No Endurance Discharge Plan OT Discharge Plan At this time, pt would benefit from skilled OT services and interventions while admitted at [facility] to address functional limitations in occupational performance. Once DC from [facility], pt could benefit from rehab placement to further address functional limitations in occupational performance. if pt has 24/7 care, pt could go home with for skilled OT services and interventions to address functional limitations in occupational performance. Eval Complexity Eval Charge Codes 84900 - Moderate Complexity PHYSICIAN CERTIFICATION: I certify the specified therapy services for Hayley Hutson are required, authorized, and reviewed every 30 days.
[2024-08-23 14:21] LABS: Vitamin B12 229 pg/mL (239-931)
[2024-08-23 16:03] LABS: Folate 7.61 ng/mL
[2024-08-23 19:09] LABS: Hematocrit 23.6 % (37.0-47.0); Hemoglobin 7.7 g/dL (12.2-16.2)
[2024-08-23] MEDS: *PAT OWN MED* ATORVASTATIN 20MG TABLET 20 MG PO (20:19)
[2024-08-24] VITALS: BP 128/69; PULSE 70; PULSE 71; RESP 17; TEMP 36.4; O2SAT 96
[2024-08-24 04:00] VITALS: BP 130/68; PULSE 60; PULSE 81; RESP 16; TEMP 36.9; O2SAT 97; BMI 23.7
[2024-08-24 05:14] LABS: Basophils % 0.3 % (0.1-2.0); Eosinophils # 0.1 Kmm3 (0.0-0.4); Eosinophils % 3.5 % (0.1-12.0); Hematocrit 22.4 % (37.0-47.0); Hemoglobin 7.2 g/dL (12.2-16.2); Immature Granulocytes # 0.37 10^3uL; Immature Granulocytes % 11.8 %; Lymphocytes # 0.6 K/mm3 (0.7-4.5); Lymphocytes % 19.4 % (10-50); Mean Corpuscular HGB Conc 32.1 g/dL (31.8-35.4); Mean Corpuscular Volume 87.2 fl (81-99); Mean Platelet Volume 9.8 fl (7.4-10.4); Monocytes # 0.2 K/mm3 (0.1-1.0); Monocytes % 6.4 % (1.7-9.3); Neutrophils # 1.8 K/mm3 (1.8-7.8); Neutrophils % 58.6 % (37.0-80.0); Nucleated Red Blood Cells # 0 10^3/uL; Nucleated Red Blood Cells % 0 %; Platelet Count 309 K/mm3 (142-424); Red Blood Count 2.57 M/mm3 (4.20-5.40); Red Cell Distribution Width 18.3 % (11.5-17.5); Red Cell Distribution Width-SD 53.8 fL; White Blood Count 3.1 K/mm3 (4.8-10.8)
[2024-08-24 05:17] LABS: MANUAL DIFFERENTIAL MANUAL DIFFERENTIAL (MANUAL DIFF)
[2024-08-24 05:28] LABS: Albumin Level 2.5 g/dl (3.5-5.0); Chloride 108 mmol/L (98-107); Potassium 3.5 mmoL/L (3.5-5.1); Sodium 132 mmol/L (136-145)
[2024-08-24 05:31] LABS: Alanine Aminotransferase 14 U/L (12-78); Albumin/Globulin Ratio 0.9 (1.1-1.8); Alkaline Phosphatase 73 U/L (38-126); Anion Gap 5.5 mEq/L (5-15); Aspartate Amino Transferase 20 U/L (14-36); Bilirubin,Total 0.4 mg/dl (0.2-1.3); Blood Urea Nitrogen 11 mg/dl (7-17); Calcium 7.8 mg/dl (8.4-10.2); Carbon Dioxide 22 mmol/L (22.0-30.0); Creatinine Clearance Estimated 48 mL/min (50-200); Estimated Glomerular Filt Rate 49 ml/min (>60); GFR (African American) 59 ML/MIN (>60); Globulin 2.7 g/dL (1.3-3.2); Glucose 75 mg/dl (74-100); Magnesium 1.7 mg/dl (1.6-2.3); Total Protein,Serum 5.2 g/dl (6.3-8.2)
[2024-08-24 06:02] LABS: Eosinophils % 1 % (0-3); Lymphocytes % 27 % (10-50); Monocytes % 3 % (2-9); Neutrophils % 68 % (42-76); Total Cells Counted 100
[2024-08-24 06:03] LABS: Platelet Estimate Normal; RBC Morphology Normal
[2024-08-24] MEDS: SUCRALFATE 1GM TABLET 1 GM PO ×2 (06:09→11:35)
[2024-08-24] MEDS: LEVOTHYROXINE 88 MCG PO (06:10)
[2024-08-24 07:33] VITALS: BP 117/54; PULSE 74; RESP 20; TEMP 37.1
--- NOTE | 2024-08-24 07:55 | EXP.PN ---
Subjective *Date: 08/24/24 *Time: 07:55 Interval history: Doing well this morning sitting up in armchair with no abdominal complaints. Exam Data for Last 24 hours Vital signs and Labs for Last 24 Hours: Temp Pulse Resp BP Pulse Ox O2 Del Method FiO2 98.7 F 74 20 117/54 L 97 Room Air 98 08/24/24 07:33 08/24/24 07:33 08/24/24 07:33 08/24/24 07:33 08/24/24 04:00 08/24/24 07:33 08/24/24 07:33 Laboratory Results - last 24 hr 08/23/24 05:57: WBC 2.4 L, RBC 2.41 L, Hgb 7.3 L D, Hct 21.1 L, MCV 87.6, MCH 29.9, MCHC 34.1, RDW 18.4 H, Plt Count 266 D, MPV 10.3, Neut % (Auto) 53.5, Lymph % (Auto) 23.9, [place] % (Auto) 7.8, Eos % (Auto) 2.9, Baso % (Auto) 0.4, Neut # (Auto) 1.3 L, Lymph # (Auto) 0.6 L, [place] # (Auto) 0.2, Eos # (Auto) 0.1, Baso # (Auto) 0.0, Total Counted 100, Neutrophils % (Manual) 52, Lymphocytes % (Manual) 34, Monocytes % (Manual) 4, Eosinophils % (Manual) 8 H, Basophils % (Manual) 2.0 H, Platelet Estimate Normal, RBC Morphology Normal, Sodium 131 L, Potassium 3.5, Chloride 109 H, Carbon Dioxide 22, Anion Gap 3.5 L, BUN 11, Creatinine 1.20 H, Estimated Creat Clear 44, Estimated GFR 44 L, Est GFR ( Amer) 53 L, Glucose 81, Calcium 7.5 L, Magnesium 1.7, Total Bilirubin 0.4, AST 17, ALT 14, Alkaline Phosphatase 64, Total Protein 4.9 L, Albumin 2.3 L, Globulin 2.6, Albumin/Globulin Ratio 0.9 L, Vitamin B12 229 L, Folate 7.61, TSH 7.84 H 08/23/24 16:55: Hgb 7.7 L, Hct 23.6 L 08/24/24 04:51: WBC 3.1 L D, RBC 2.57 L, Hgb 7.2 L, Hct 22.4 L, MCV 87.2, MCH 28.0, MCHC 32.1, RDW 18.3 H, Plt Count 309, MPV 9.8, Neut % (Auto) 58.6, Lymph % (Auto) 19.4, [place] % (Auto) 6.4, Eos % (Auto) 3.5, Baso % (Auto) 0.3, Neut # (Auto) 1.8, Lymph # (Auto) 0.6 L, [place] # (Auto) 0.2, Eos # (Auto) 0.1, Baso # (Auto) 0.0, Total Counted 100, Neutrophils % (Manual) 68, Band Neutrophils % 1.0, Lymphocytes % (Manual) 27, Monocytes % (Manual) 3, Eosinophils % (Manual) 1, Platelet Estimate Normal, RBC Morphology Normal, Sodium 132 L, Potassium 3.5, Chloride 108 H, Carbon Dioxide 22, Anion Gap 5.5, BUN 11, Creatinine 1.10 H, Estimated Creat Clear 48, Estimated GFR 49 L, Est GFR ( Amer) 59, Glucose 75, Calcium 7.8 L, Magnesium 1.7, Total Bilirubin 0.4, AST 20, ALT 14, Alkaline Phosphatase 73, Total Protein 5.2 L, Albumin 2.5 L, Globulin 2.7, Albumin/Globulin Ratio 0.9 L I & O for Last 24 hours: Intake & Output 08/21/24 08/22/24 08/23/24 08/24/24 23:59 23:59 23:59 23:59 Intake Total 1210 / 1210 960 / 1120 160 / 160 Output Total 600 / 600 0 / 0 0 / 625 625 / 625 Balance 610 / 610 0 / 240 960 / 495 -465 / -465 Weight 146 lb 3.2 oz 147 lb 9 oz 147 lb 8.886 oz 147 lb 8 oz Constitutional Constitutional: no acute distress *Routine HEENT Exam Head: Present normocephalic Eye: Present EOMI and PERRL ENT: Present mucous membranes moist *Routine Neck Exam Neck: Present supple; Absent lymphadenopathy *Routine Respiratory Exam Respiratory: Present CTA bilaterally *Routine Cardiovascular Exam Cardiovascular: Present RRR *Routine Abdominal Exam Abdominal: Present soft and normoactive bowel sounds; Absent tenderness *Routine Extremities Exam Extremities: Absent cyanosis, clubbing or edema *Routine Skin Exam Skin: Present warm; Absent rash *Routine Neurological Exam Neurological: Present alert and oriented X3 Assessment and Plan *Assessment and plan (1) B12 deficiency: Status: Acute Category: Medical Code(s): E53.8 - Deficiency of other specified B group vitamins (2) Angiodysplasia of stomach: Status: Acute Category: Medical Code(s): K31.819 - Angiodysplasia of stomach and duodenum without bleeding (3) Anemia: Status: Acute Qualifiers: Anemia type: unspecified type Qualified Code(s): D64.9 - Anemia, unspecified Category: Medical Code(s): D64.9 - Anemia, unspecified Plan 1. Anemia. Certainly this could be related to B12 deficiency and I would recommend B12 IM injection. She does state that she has taken oral B12 but this is a poor way to supplement. Alternatively she could do [place] intranasal B12. I would check Hemoccult testing and iron studies. I am less certain that the angiodysplasias resulted in her chronic GI blood loss but she did report some black stools. Methotrexate may have played some acute role. Would consider hematology evaluation as outpatient.
[2024-08-24 08:00] VITALS: PULSE 80
[2024-08-24] MEDS: LOSARTAN 100 MG 1 EACH PO (09:05)
[2024-08-24] MEDS: BISOPROLOL 5 MG 2.5 MG PO (09:06)
[2024-08-24] MEDS: VITAMIN B-12 1,000 MCG 1ML VIAL 1000 MCG IM (09:07)
[2024-08-24] MEDS: PANTOPRAZOLE 40MG TABLET 40 MG PO (09:08)
[2024-08-24 11:45] VITALS: BP 135/73; PULSE 78; RESP 16; TEMP 37.7; O2SAT 98
--- NOTE | 2024-08-24 12:02 | P.DS_ITS ---
<Statement entered by Rikki Gamez MD - 08/24/24 16:25> Rounded on patient after nurse practitioner. Personally examined and interviewed patient. Agree with exam findings and care plan as documented. General Admission date:: 08/20/24 Discharge date: 08/24/24 HPI HPI HPI: Mrs. Hutson is a 74-year-old female who was sent to the emergency department after having outpatient blood work showing a low hemoglobin of 5.7. Her baseline hemoglobin was 9.8. The patient had been started on methotrexate for rheumatoid arthritis by her government instructor in [place]. She did have mucositis and this was discontinued. The patient is also taking prednisone and baby aspirin. The patient reports having black melanotic stools 5-6 times on or Friday and this extended into Friday after she was admitted. She reports no hematemesis or abdominal pain. Her last EGD was more than a decade ago. She reports no prior GI bleeding. The patient has received blood transfusions. Her most recent hemoglobin hematocrit yesterday was 8.8 and 27.3. Her hematocrit dropped down again to 21.1 this morning. She is pancytopenic (? Related to methotrexate) yet her platelet count has rebounded to 266,000 from 93,000 on admission. Hospital Course Hospital Course Hospital Course: Ms. Hutson is a 74-year-old female who presented to the emergency department on 08/21/2024 from her doctor's office after having blood work showing a hemoglobin of 5.7. Patient does mention that she was having dark stools, and is also bleeding in her mouth from sores. Hospital medicine was consulted for admission and management of the patient. Patient was admitted to the hospital and given 2 units of packed red blood cells, which brought her hemoglobin from 5.7-8.1. Her FOBT was positive. Protonix 40 mg twice daily IV and Carafate with meals was also initiated. GI was consulted and recommended a upper endoscopy to check for bleeding sources. Upper endoscopy was performed on 08-23-2024, and she was found to have scattered gastric AVMs which were ablated during the procedure. Patient was kept for monitoring and has remained hemodynamically stable. B12, iron, folate levels were all within normal range. #Suspected upper GI bleed #Acute on chronic anemia #Black tarry stools ? About 1 week onset of black tarry stools, weakness. Initial hemoglobin 5.7, improved to 8.1 after 2 units transfusion. Today hemoglobin is 7.3. ?IV Venofer 200 mg IV given. ? Patient continues to have dark stools, though improving and getting more clear per patient. FOBT positive. ? Patient remains hemodynamically stable. ? Continue IV Protonix 40 mg twice daily, Carafate with meals at discharge. ?Hemoglobin has remained stable ranging from 7.2-8.8 post 2 units. Should be monitored closely at discharge. ? GI consulted, EGD this morning shows multiple angiodysplasias, which were cauterized. She also had a Schatzki's ring was dilated during the EGD procedure. ?Patient denies melena or tarry stools since Friday. ?GI does recommend patient follow-up with hematology, patient sees Dr. Nixon. #Pancytopenia ? Following with oncology outpatient, with no clear etiology at this time. Suspecting rheumatological disease. Bone marrow biopsy unremarkable. ? Had been taking methotrexate for rheumatoid arthritis, but discontinued after mouth and lip sores. Acyclovir 1000 mg twice daily. ? Considered cirrhosis but patient has no known alcohol use disorder or history of hepatitis. Albumin low however. Liver ultrasound found shows fatty infiltration of the liver, no evidence of cirrhosis. ? Continue following up with Dr. Nixon outpatient. #CKD stage III ? Creatinine at discharge is 1.1. #CAD #Hypertension #Hyperlipidemia ? Continue home bisoprolol, atorvastatin. Holding home aspirin due to GI bleed. #Hypothyroidism ? Continue home levothyroxine 88 mcg. TSH 7.84. Patient will likely need levothyroxine adjusted, will defer to PCP. Total time spent on discharge: 32 minutes on chart review, counseling, documentation, and direct care with patient. Exam Data for Last 24 hours Vital signs and Labs for Last 24 Hours: Temp Pulse Resp BP Pulse Ox O2 Del Method FiO2 99.8 F H 78 16 135/73 98 Room Air 98 08/24/24 11:45 08/24/24 11:45 08/24/24 11:45 08/24/24 11:45 08/24/24 11:45 08/24/24 10:32 08/24/24 07:33 Laboratory Results - last 24 hr 08/23/24 05:57: Vitamin B12 229 L, Folate 7.61 08/23/24 16:55: Hgb 7.7 L, Hct 23.6 L 08/24/24 04:51: WBC 3.1 L D, RBC 2.57 L, Hgb 7.2 L, Hct 22.4 L, MCV 87.2, MCH 28.0, MCHC 32.1, RDW 18.3 H, Plt Count 309, MPV 9.8, Neut % (Auto) 58.6, Lymph % (Auto) 19.4, Pender % (Auto) 6.4, Eos % (Auto) 3.5, Baso % (Auto) 0.3, Neut # (Auto) 1.8, Lymph # (Auto) 0.6 L, Pender # (Auto) 0.2, Eos # (Auto) 0.1, Baso # (Auto) 0.0, Total Counted 100, Neutrophils % (Manual) 68, Band Neutrophils % 1.0, Lymphocytes % (Manual) 27, Monocytes % (Manual) 3, Eosinophils % (Manual) 1, Platelet Estimate Normal, RBC Morphology Normal, Sodium 132 L, Potassium 3.5, Chloride 108 H, Carbon Dioxide 22, Anion Gap 5.5, BUN 11, Creatinine 1.10 H, Estimated Creat Clear 48, Estimated GFR 49 L, Est GFR ( Amer) 59, Glucose 75, Calcium 7.8 L, Magnesium 1.7, Total Bilirubin 0.4, AST 20, ALT 14, Alkaline Phosphatase 73, Total Protein 5.2 L, Albumin 2.5 L, Globulin 2.7, Albumin/Globulin Ratio 0.9 L I & O for Last 24 hours: Intake & Output 08/21/24 08/22/24 08/23/24 08/24/24 23:59 23:59 23:59 23:59 Intake Total 1210 / 1210 960 / 1120 700 / 700 Output Total 600 / 600 0 / 0 0 / 625 625 / 625 Balance 610 / 610 0 / 240 960 / 495 75 / 75 Weight 66.315 kg 66.933 kg 66.93 kg 66.905 kg Constitutional Constitutional: no acute distress *Routine HEENT Exam Head: Present normocephalic Eye: Present EOMI and PERRL ENT: Present mucous membranes moist *Routine Neck Exam Neck: Present supple; Absent lymphadenopathy *Routine Respiratory Exam Respiratory: Present CTA bilaterally *Routine Cardiovascular Exam Cardiovascular: Present RRR *Routine Abdominal Exam Abdominal: Present soft and normoactive bowel sounds; Absent tenderness *Routine Extremities Exam Extremities: Absent cyanosis, clubbing or edema *Routine Skin Exam Skin: Present warm; Absent rash Comments: Sores on mouth, healing *Routine Neurological Exam Neurological: Present alert and oriented X3 Results Data Completed and Pending Labs on day of discharge: Labs from last 24 hours 08/24/24 08/23/24 08/23/24 04:51 16:55 05:57 WBC 3.1 L D RBC 2.57 L Hgb 7.2 L 7.7 L Hct 22.4 L 23.6 L MCV 87.2 MCH 28.0 MCHC 32.1 RDW 18.3 H Plt Count 309 MPV 9.8 Neut % (Auto) 58.6 Lymph % (Auto) 19.4 Pender % (Auto) 6.4 Eos % (Auto) 3.5 Baso % (Auto) 0.3 Neut # (Auto) 1.8 Lymph # (Auto) 0.6 L Pender # (Auto) 0.2 Eos # (Auto) 0.1 Baso # (Auto) 0.0 Total Counted 100 Neutrophils % (Manual) 68 Band Neutrophils % 1.0 Lymphocytes % (Manual) 27 Monocytes % (Manual) 3 Eosinophils % (Manual) 1 Platelet Estimate Normal RBC Morphology Normal Sodium 132 L Potassium 3.5 Chloride 108 H Carbon Dioxide 22 Anion Gap 5.5 BUN 11 Creatinine 1.10 H Estimated Creat Clear 48 Estimated GFR 49 L Est GFR ( Amer) 59 Glucose 75 Calcium 7.8 L Magnesium 1.7 Total Bilirubin 0.4 AST 20 ALT 14 Alkaline Phosphatase 73 Total Protein 5.2 L Albumin 2.5 L Globulin 2.7 Albumin/Globulin Ratio 0.9 L Vitamin B12 229 L Folate 7.61 DS: Diagnosis Discharge Diagnosis (1) B12 deficiency: Status: Acute Code(s): E53.8 - Deficiency of other specified B group vitamins (2) Angiodysplasia of stomach: Status: Acute Code(s): K31.819 - Angiodysplasia of stomach and duodenum without bleeding (3) Anemia: Status: Acute Code(s): D64.9 - Anemia, unspecified Qualifiers: Anemia type: unspecified type Qualified Code(s): D64.9 - Anemia, unspecified Meds Home Medications and Allergies Home Medications ?Medication ?Instructions ?Recorded ?Confirmed ?Type aspirin 81 mg tablet,delayed 81 mg PO DAILY 04/10/17 0 08/21/24 History release (Adult Low Dose Aspirin) leucovorin calcium 15 mg tablet 15 mg PO DAILY #7 tabs 08/17/24 08/20/24 Rx atorvastatin 20 mg tablet 20 mg PO HS 08/20/24 5 History bisoprolol fumarate 5 mg tablet 2.5 mg PO DAILY 08/20/24 History levothyroxine 88 mcg tablet 88 mcg PO DAILY 08/20/24 0 08/20/24 History losartan 100 mg tablet 100 mg PO DAILY 08/20/24 History prednisone 5 mg tablet 5 mg PO DAILY 08/21/2408/21 History valacyclovir 1 gram tablet 1,000 mg PO BID 08/21/24 History pantoprazole 40 mg tablet,delayed 40 mg PO BID 30 days #60 tabs 08/24/24 Rx release sucralfate 1 gram tablet 1 g PO ACHS PRN gastric refl ux 30 08/24/24 Rx days #120 tabs New Prescriptions to Start Prescriptions: pantoprazole Charlene Hope sucralfate Charlene Hope Allergies Allergy/AdvReac Type Severity Reaction Status Date / Time codeine (CODEINE) Allergy Mild NA-NAUSEA/V Verified 06/16/24 09:08 OMITING Discharge Plan Disposition Patient Disposition: Home, Self-Care Condition: Fair Discharge Order Discharge Orders: Discharge Order (Routine); Ordered 08/24/24 Ordered By: Charlene Hope Follow up Plan Follow up with: Mp Mckenna II, MD [Staff Physician, Gastroenterology] - Enter time for follow up Miguel Wallace DO [Primary Care Provider, Family Practice] - Enter time for follow up Prescriptions/Medication Reconciliation: New sucralfate 1 gram Tablet 1 g PO ACHS PRN (Reason: gastric reflux) 30 Days Qty: 120 0RF pantoprazole 40 mg Tablet,Delayed Release (Dr/Ec) 40 mg PO BID 30 Days Qty: 60 0RF Continued aspirin [Adult Low Dose Aspirin] 81 mg tablet,delayed release (DR/EC) 81 mg PO DAILY leucovorin calcium 15 mg tablet 15 mg PO DAILY Qty: 7 0RF atorvastatin 20 mg tablet 20 mg PO HS bisoprolol fumarate 5 mg tablet 2.5 mg PO DAILY levothyroxine 88 mcg tablet 88 mcg PO DAILY losartan 100 mg tablet 100 mg PO DAILY valacyclovir 1 gram tablet 1,000 mg PO BID prednisone 5 mg tablet 5 mg PO DAILY Problem Reconciliation Problems Reviewed?: Yes Patient Discharge Instructions ACTIVITY: Continue current activity DIET: advance to your usual diet Patient Instructions: Anemia Print Language: Hungarian Providers Primary Care Provider: Miguel Wallace Admit Provider: Diego Arndt Attending Provider: Diego Arndt
--- NOTE | 2024-08-25 10:35 | SW/DCPLANNER ---
Spoke with patient on the phone. Patient stated that she has no complaints. Patient stated that she is aware of her upcoming appointments. Patient stated that she was able to get her new medicine picked up from clinic pharmacy. Patient stated that she has no concerns or questions at this time. Aidee Schneider
== END 2024-08-24 14:10 | disposition home or self-care (01) | DRG 377 ==
LOC: ER 21:56 → 2ND 08-21 05:11
PROVIDERS: Internal Medicine; Internal Medicine Gastroenterology; Physician Assistant; Admitting Provider Student in an Organized Health Care Education/Training Program; Emergency Provider Emergency Medicine; PCP Internal Medicine; Visit Provider Student in an Organized Health Care Education/Training Program
PROC: 0DJ08ZZ Inspection of Upper Intestinal Tract, Via Natural or Artificial Opening Endoscopic (ICD-10-PCS; principal; 2024-08-23 09:00)
DX: K31.811 Angiodysplasia of stomach and duodenum with bleeding (principal); E43 Unspecified severe protein-calorie malnutrition; D61.818 Other pancytopenia; E78.2 Mixed hyperlipidemia; I25.10 Atherosclerotic heart disease of native coronary artery without angina pectoris; M06.9 Rheumatoid arthritis, unspecified; K22.2 Esophageal obstruction; I12.9 Hypertensive chronic kidney disease with stage 1 through stage 4 chronic kidney disease, or unspecified chronic kidney disease; E03.9 Hypothyroidism, unspecified; D50.0 Iron deficiency anemia secondary to blood loss (chronic); Z68.23 Body mass index [BMI] 23.0-23.9, adult; K29.80 Duodenitis without bleeding; K44.9 Diaphragmatic hernia without obstruction or gangrene; D63.1 Anemia in chronic kidney disease; N18.30 Chronic kidney disease, stage 3 unspecified; T45.1X5A Adverse effect of antineoplastic and immunosuppressive drugs, initial encounter; Z79.82 Long term (current) use of aspirin; Z79.890 Hormone replacement therapy; Z79.899 Other long term (current) drug therapy; Z88.5 Allergy status to narcotic agent
CPT/HCPCS: 36415; 36430; 72040; 76705; 80048; 80053; 82272; 82607; 82746; 83735; 84443; 85007; 85014; 85018; 85025; 85610; 86850; 87507; 88305; 97110; 97162; 97166; C1726; C2618; G0328; J1756; J2003; J2470; J2704; J3420; J7050; P9016

== ENCOUNTER 2024-09-16 08:54 | Outpatient (CLI) | payer MEDICARE, SELFPAY ==
--- OUTSIDE RECORDS SUMMARY | 2024-09-16 09:00 | XMS_ITS | Clinical Summary ---
Author Organization [facility] Address [address] [place] [address] Care Team Providers Care President & Founder Name Role Phone Diego López APRN Primary Care Provider [phone] Allergies Active Allergy Reactions Criticality Noted Date [...] Team Description 06/25/2024 10:00 AM EDT Consult [facility] [address] [place] [phone] Ganesh Chen MD Stage 3 chronic kidney [...] Description 07/08/2025 12:40 PM EDT Office Visit [facility] [address] [place] [id number] Ganesh Chen MD [address] [place] [phone] Health Maintenance Due Date Last Done Comments [...] - Risk 60-74 years 1-dose series) 2011 [id number] Vaccine (3 - Pfizer risk series) 01/24/2021 12/27/2020, 12/06/2020 UKY-Influenza Vaccine (#1) 11/08/202403/07, 01/05/2020, 02/18/2018, Additional history exists HPV Vaccines [...] this topic Insurance [employer] Care Teams President & Founder Relationship Specialty Start Date End Date Diego López APRN [address] [place] [address] [place] [id number] (work) PCP - General 07/21/20
--- OUTSIDE RECORDS SUMMARY | 2024-09-16 09:00 | XMS_ITS | Data Portability ---
Author Organization [facility] PRASHANTH AraizaS WILLACOOCHEE CLOSED Address [address] [facility] [address] [place] [address] Care Team Providers Care Credit Counselor Name Role Phone BETHANY WOLFE Referring Provider BETHANY WOLFE Primary Care Provider KEENA LI Overhauler Assessment No assessment recorded. Plan of Treatment Reminders Order Date Submit Date Provider Last Modified By Organization Details Last Modified Time Details Appointments RHEUM RECHECK 2024 10:45A M KEENA LI MD Not available Not available Not available Lab CBC w/ auto diff 2024 025 [facility], [address] [place] [address], [address], 08/20/2024 21:30:30 CMP, serum or plasma 2024 025 [facility], [address] [place] [address], [address], 08/20/2024 19:03:00 CBC w/ auto diff 2024 025 [facility], [address] [place] [address], [address], 08/03/2024 15:27:43 CMP, serum or plasma 2024 025 [facility], [address] [place] [address], [address], 08/03/2024 15:48:05 ESR (erythro cyte sediment ation rate), blood 2024 025 [facility], [address] [place] [address], [address], 08/03/2024 18:34:41 C reactive protein, QN, serum or plasma 2024 025 [facility], [address] [place] [address], [address], 08/03/2024 15:48:02 vitamin D, 25-hydro xy, total, serum 2024 025 [facility], [address] [place] [address], [address], 08/03/2024 15:34:19 CK (creatin e kinase), total, serum 2024 025 [facility], [address] [place] [address], [address], 08/03/2024 15:48:03 vitamin B12, serum 2024 025 [facility], [address] [place] [address], [address], 08/03/2024 15:34:21 folate, serum 2024 025 [facility], [address] [place] [address], [address], 08/03/2024 15:34:18 TSH, serum, reflex free T4 2024 025 [facility], [address] [place] [address], [address], 08/03/2024 15:29:12 ccp (cyclic citrulli nated peptide) iga+igg, serum 2024 025 [facility], [address] [place] [address], [address], 08/05/2024 16:39:40 CBC w/ auto diff [address] [facility], [address] [place] [address], [address], 08/10/2024 08:04:48 CMP, serum or plasma [address] [facility], [address] [place] [address], [address], 08/10/2024 08:04:48 ESR (erythro cyte sediment ation rate), blood [address] [facility], [address] [place] [address], [address], 08/10/2024 08:04:48 C reactive protein, QN, serum or plasma [address] [facility], [address] [place] [address], [address], 08/10/2024 08:04:48 Mycobact erium tubercul osis stimulat ed gamma interfer on, qual, blood 2024 [facility], [address] [place] [address], [address], 08/05/2024 15:38:07 hepatiti s (A+B+C) panel, serum 2024 [facility], [address] [place] [address], [address], 08/03/2024 15:28:56 Referral None recorded . Procedures None recorded . Surgeries None recorded . Imaging XR, ankle, 3 or more view 2024 [facility], [address] [place] [address], [address], 08/03/2024 14:30:45 XR, chest, 2 view 2024 [facility], [address] [facility], [place], [address], 08/03/2024 14:26:18 Medication Orders predniso ne 5 mg tablet 2024 025 [facility], [address], [address], 08/20/2024 16:09:49 Valtrex 1 gram tablet 2024 [facility], [address], [address], 09/03/2024 05:02:12 Compound Magic Mouthwas h #10 (Dipheny dramine/ Nystatin /Maalox/ Lidocain e 1:1:1:1) 2024 [facility], [address], [address], 08/20/2024 16:09:46 predniso ne 5 mg tablet 2024 025 [facility], [address], [address], 08/03/2024 13:45:28 methotre xate sodium 2.5 mg tablet 2024 025 [facility], [address], [address], 08/20/2024 15:33:39 folic acid 1 mg tablet 2024 025 [facility], [address], [address], 08/20/2024 15:33:44 Patient TargetsNo targets recorded. Patient Instructions Encounter Date Encounter Id Patient Instructions Last Modified By Organization Details Last Modified Time 08/03/2024 [id number] medical record request* - Please send the X rays on the hands and the cervical spine Not available 08/10/2024 08:04:54 I spent >60 minutes caring for the patient today with counseling, coordinating care, extensive review of outside records, medication management, and documentation. [email or web address] Not available 08/06/2024 20:07:40 Reason for Referral None Reported. Results Created Date Observation Date Name Description Value Unit Range Abnormal Flag Note LastModifiedBy Organization Detail LastModifiedTime 08/04/1908/03/2024 COMPL ETE BLOOD COUNT white blood cells 5.1 10*3/ uL 3.8-10 .8 normal Not Available [facility] [address] [place] [address], [address], 08/03/2024 15:27:43 08/04/19 25 08/03/2024 COMPL ETE BLOOD COUNT red blood cells 3.42 10*6/ uL 3.80-5 .20 low Not Available [facility] [address] [place] [address], [address], 08/03/2024 15:27:43 08/04/19 25 08/03/2024 COMPL ETE BLOOD COUNT hemoglobin 9.3 g/dL 12.0-1 6.0 low Not Available [facility] [address] [place] [address], [address], 08/03/2024 15:27:43 08/04/19 25 08/03/2024 COMPL ETE BLOOD COUNT hematocrit 27.8 % 35.0-4 7.0 low Not Available [facility] [address] [place] [address], [address], 08/03/2024 15:27:43 08/04/19 25 08/03/2024 COMPL ETE BLOOD COUNT MCV 82 fL 80-100 normal Not Available [facility] [address] [place] [address], [address], 08/03/2024 15:27:43 08/04/19 25 08/03/2024 COMPL ETE BLOOD COUNT MCH 27 pg 26-35 normal Not Available [facility] [address] [place] [address], [address], 08/03/2024 15:27:43 08/04/19 25 08/03/2024 COMPL ETE BLOOD COUNT MCHC 33 g/dL 32-36 normal Not Available [facility] [address] [place] [address], [address], 08/03/2024 15:27:43 08/04/19 25 08/03/2024 COMPL ETE BLOOD COUNT RDW 17.3 % 11.0-1 5.0 high Not Available [facility] [address] [place] [address], [address], 08/03/2024 15:27:43 08/04/19 25 08/03/2024 COMPL ETE BLOOD COUNT MPV 10.6 fL 6.2-10 .5 high Not Available [facility] [address] [place] [address], [address], 08/03/2024 15:27:43 08/04/19 25 08/03/2024 COMPL ETE BLOOD COUNT platelet count 54 10*3/ uL 150-40 0 low Not Available [facility] [address] [place] [address], [address], 08/03/2024 15:27:43 08/04/19 25 08/03/2024 COMPL ETE BLOOD COUNT neutrophil,a bsolute 4.1 10*3/ uL 1.6-8. 4 normal Not Available [facility] [address] [place] [address], [address], 08/03/2024 15:27:43 08/04/19 25 08/03/2024 COMPL ETE BLOOD COUNT lymphocyte,a bsolute 0.7 10*3/ uL 0.4-5. 1 normal Not Available [facility] [address] [place] [address], [address], 08/03/2024 15:27:43 08/04/19 25 08/03/2024 COMPL ETE BLOOD COUNT monocyte,abs olute 0.2 10*3/ uL 0.0-1. 2 normal Not Available [facility] [address] [place] [address], [address], 08/03/2024 15:27:43 08/04/19 25 08/03/2024 COMPL ETE BLOOD COUNT eosinophil,a bsolute 0.1 10*3/ uL 0.0-0. 8 normal Not Available [facility] [address] [place] [address], [address], 08/03/2024 15:27:43 08/04/19 25 08/03/2024 COMPL ETE BLOOD COUNT basophil,abs olute 0.0 10*3/ uL 0.0-0. 3 normal Not Available [facility] [address] [place] [address], [address], 08/03/2024 15:27:43 08/04/19 25 08/03/2024 COMPL ETE BLOOD COUNT % neutrophils 81.1 % 42.0-7 8.0 high Not Available [facility] [address] [place] [address], [address], 08/03/2024 15:27:43 08/04/19 25 08/03/2024 COMPL ETE BLOOD COUNT % lymphocytes 13.7 % 11.0-4 7.0 normal Not Available [facility] [address] [place] [address], [address], 08/03/2024 15:27:43 08/04/19 25 08/03/2024 COMPL ETE BLOOD COUNT % monocytes 3.2 % 0.0-11 .0 normal Not Available [facility] [address] [place] [address], [address], 08/03/2024 15:27:43 08/04/19 25 08/03/2024 COMPL ETE BLOOD COUNT % eosinophils 1.5 % 0.0-7. 0 normal Not Available [facility] [address] [place] [address], [address], 08/03/2024 15:27:43 08/04/19 25 08/03/2024 COMPL ETE BLOOD COUNT % basophils 0.5 % 0.0-3. 0 normal Not Available [facility] [address] [place] [address], [address], 08/03/2024 15:27:43 08/04/19 25 08/03/2024 COMPL ETE BLOOD COUNT nucleated red cells 0.1 % 0.0-0. 9 normal Not Available [facility] [address] [place] [address], [address], 08/03/2024 15:27:43 08/04/19 25 08/03/2024 COMPL ETE BLOOD COUNT nucleated RBCs, absolute 0.00 10*3/ uL not estab. normal Not Available [facility] [address] [place] [address], [address], 08/03/2024 15:27:43 08/04/19 25 08/03/2024 HEPAT ITIS PANEL hepatitis A Ab, IgM NONREA CTIVE nonrea ctive normal Not Available [facility] [address] [place] [address], [address], 08/03/2024 15:28:56 08/04/19 25 08/03/2024 HEPAT ITIS PANEL hepatitis B surface Ag NONREA CTIVE nonrea ctive normal Not Available [facility] [address] [place] [address], [address], 08/03/2024 15:28:56 08/04/19 25 08/03/2024 HEPAT ITIS PANEL hepatitis B core Ab,IgM NONREA CTIVE nonrea ctive normal Not Available [facility] [address] [place] [address], [address], 08/03/2024 15:28:56 08/04/19 25 08/03/2024 HEPAT ITIS PANEL hcab, reflex viral RNA qt NONREA CTIVE nonrea ctive normal Antib odies to HCV were not detec shayla; does not exclu de the possi bilit y of expos ure to HCV. Not Available [facility] [address] [place] [address], [address], 08/03/2024 15:28:56 08/04/19 25 08/03/2024 TSH WITH REFLE X FT4 TSH with reflex FT4 1.470 u[IU] /mL 0.270- 4.200 normal Not Available [facility] [address] [place] [address], [address], 08/03/2024 15:29:12 08/04/19 25 08/03/2024 FOLIC ACID folic acid 4.8 NG/mL 4.6-34 .8 normal Not Available [facility] [address] [place] [address], [address], 08/03/2024 15:34:18 08/04/19 25 08/03/2024 VITAM IN D 25-OH vitamin D 25-oh, total 15 NG/mL >=30 NG/mL abnormal Not Available [facility] [address] [place] [address], [address], 08/03/2024 15:34:19 08/04/19 25 08/03/2024 VITAM IN B12 vitamin B12 252 pg/mL 232-12 45 normal Not Available [facility] [address] [place] [address], [address], 08/03/2024 15:34:21 08/04/1908/03/2024 C REACT ANGELA PROTE IN C reactive protein 6.15 mg/dL 0.00-0 .49 high Not Available [facility] [address] [place] [address], [address], 08/03/2024 15:48:02 08/04/19 25 08/03/2024 CREAT INE KINAS E creatine kinase 36 U/L 0-169 normal Not Available [facility] [address] [place] [address], [address], 08/03/2024 15:48:03 08/04/19 25 08/03/2024 COMP. METAB OLIC PANEL glucose 91 mg/dL 74-100 normal Not Available [facility] [address] [place] [address], [address], 08/03/2024 15:48:05 08/04/19 25 08/03/2024 COMP. METAB OLIC PANEL blood urea nitrogen 21 mg/dL 6-20 high Not Available [facility] [address] [place] [address], [address], 08/03/2024 15:48:05 08/04/19 25 08/03/2024 COMP. METAB OLIC PANEL creatinine 1.40 mg/dL 0.50-0 .95 high Not Available [facility] [address] [place] [address], [address], 08/03/2024 15:48:05 08/04/19 25 08/03/2024 COMP. METAB OLIC PANEL BUN/creatini ne ratio 15 (calc ) 10-20 normal Not Available [facility] [address] [place] [address], [address], 08/03/2024 15:48:05 08/04/19 25 08/03/2024 COMP. METAB OLIC PANEL sodium 134 mmol/ L 136-14 5 low Not Available [facility] [address] [place] [address], [address], 08/03/2024 15:48:05 08/04/19 25 08/03/2024 COMP. METAB OLIC PANEL potassium 3.3 mmol/ L 3.4-5. 0 low Not Available [facility] [address] [place] [address], [address], 08/03/2024 15:48:05 08/04/19 25 08/03/2024 COMP. METAB OLIC PANEL chloride 103 mmol/ L 98-107 normal Not Available [facility] [address] [place] [address], [address], 08/03/2024 15:48:05 08/04/19 25 08/03/2024 COMP. METAB OLIC PANEL carbon dioxide 20 mmol/ L 22-31 low Not Available [facility] [address] [place] [address], [address], 08/03/2024 15:48:05 08/04/19 25 08/03/2024 COMP. METAB OLIC PANEL anion gap 11 (calc ) 7-25 normal Not Available [facility] [address] [place] [address], [address], 08/03/2024 15:48:05 08/04/19 25 08/03/2024 COMP. METAB OLIC PANEL calcium 8.4 mg/dL 8.6-10 .2 low Not Available [facility] [address] [place] [address], [address], 08/03/2024 15:48:05 08/04/19 25 08/03/2024 COMP. METAB OLIC PANEL total protein 6.9 g/dL 6.4-8. 3 normal Not Available [facility] [address] [place] [address], [address], 08/03/2024 15:48:05 08/04/19 25 08/03/2024 COMP. METAB OLIC PANEL albumin 3.4 g/dL 3.5-5. 2 low Not Available [facility] [address] [place] [address], [address], 08/03/2024 15:48:05 08/04/19 25 08/03/2024 COMP. METAB OLIC PANEL globulin 3.5 1.5-4. 5 normal Not Available [facility] [address] [place] [address], [address], 08/03/2024 15:48:05 08/04/19 25 08/03/2024 COMP. METAB OLIC PANEL albumin/glob ulin ratio 1.0 (calc ) 1.1-2. 5 low Not Available [facility] [address] [place] [address], [address], 08/03/2024 15:48:05 08/04/19 25 08/03/2024 COMP. METAB OLIC PANEL bilirubin, total 0.5 mg/dL 0.1-1. 2 normal Not Available [facility] [address] [place] [address], [address], 08/03/2024 15:48:05 08/04/19 25 08/03/2024 COMP. METAB OLIC PANEL alkaline phosphatase 69 U/L 30-121 normal Not Available [facility] [address] [place], [address], 08/03/2024 15:48:05 08/04/19 25 08/03/2024 COMP. METAB OLIC PANEL AST 18 U/L 0-32 normal Not Available [facility] [address] [place] [address], [address], 08/03/2024 15:48:05 08/04/19 25 08/03/2024 COMP. METAB OLIC PANEL ALT 9 U/L 0-33 normal Not Available [facility] [address] [place] [address], [address], 08/03/2024 15:48:05 08/04/19 25 08/03/2024 COMP. METAB OLIC PANEL GFR 40 >= 60 abnormal NOT E New calcu latio n for GFR (CKD- EPI 2020) is formu lated witho ut race adjus tment facto rs at the recom menda tion of the [employer] ation and Ameri can [employer] ty of Nephr ology . This calcu latio n has not been valid ated in pregn ant women . For pedia jose patie nts refer to https ://sunni dolan.o be/pr natasha campbell s/ISAO QI/gf r_cal culat orPed Not Available [facility] [address] [place] [address], [address], 08/03/2024 15:48:05 08/04/19 25 08/03/2024 ESR, AUTOM ATED ESR, automated 14 mm 0-29 normal Not Available [facility] [address] [place] [address], [address], 08/03/2024 18:34:41 08/04/19 25 08/05/2024 QUANT IFERO N TB GOLD qtb gold NEGATI VE negati ve normal Negat angela test resul t. M. tuber culos is compl ex infec tion unlik grady. Not Available [facility] [address] [place] [address], [address], 08/05/2024 15:38:07 08/04/19 25 08/05/2024 QUANT IFERO N TB GOLD nil 0.04 IU/mL normal Not Available [facility] [address] [place] [address], [address], 08/05/2024 15:38:07 08/04/19 25 08/05/2024 QUANT IFERO N TB GOLD mitogen nil 6.53 IU/mL normal Not Available [facility] [address] [place] [address], [address], 08/05/2024 15:38:07 08/04/19 25 08/05/2024 QUANT IFERO N TB GOLD TB1 nil <0.00 IU/mL normal Not Available [facility] [address] [place] [address], [address], 08/05/2024 15:38:07 08/04/19 25 08/05/2024 QUANT IFERO [...] tube is coate d with the M. olga hinkleos is-sp ecifi c antig ens desig kvng to elici t respo nses from TB antig en prime d CD4+ helpe r T-lym phocy aníbal. The TB2 Antig en tube is coate d with the M. olga culos is-sp ecifi c antig ens desig kvng to elici t respo nses from TB antig en prime d CD4+ helpe r and CD8+ cytot oxic T-lym phocy aníbal. For addit ional infor flakita jay e refer to https ://ed amieati on.qu estiRx Reminder/f aq/FA Q204 (This link is being provi ded for infor iwona gordon/ educa hector l purpo ses only. ) Not Available [facility] [address] [place] [address], [address], 08/05/2024 15:38:07 08/04/19 25 08/05/2024 ANTI- CCP anti-ccp <16 units normal Refer ence Range Negat angela: <20 Weak Posit angela: 20-39 Moder ate Posit angela: 40-59 Stron g Posit angela: >59 Not Available [facility] [address] [place] [address], [address], 08/05/2024 16:39:40 08/21/19 25 08/20/2024 COMP. METAB OLIC PANEL glucose 119 mg/dL 74-100 high Not Available [facility] [address] [place] [address], [address], 08/20/2024 19:02:59 08/21/19 25 08/20/2024 COMP. METAB OLIC PANEL blood urea nitrogen 16 mg/dL 6-20 normal Not Available [facility] [address] [place] [address], [address], 08/20/2024 19:02:59 08/21/19 25 08/20/2024 COMP. METAB OLIC PANEL creatinine 1.22 mg/dL 0.50-0 .95 high Not Available [facility] [address] [place] [address], [address], 08/20/2024 19:02:59 08/21/19 25 08/20/2024 COMP. METAB OLIC PANEL BUN/creatini ne ratio 13 (calc ) 10-20 normal Not Available [facility] [address] [place] [address], [address], 08/20/2024 19:02:59 08/21/19 25 08/20/2024 COMP. METAB OLIC PANEL sodium 132 mmol/ L 136-14 5 low Not Available [facility] [address] [place] [address], [address], 08/20/2024 19:02:59 08/21/19 25 08/20/2024 COMP. METAB OLIC PANEL potassium 3.1 mmol/ L 3.4-5. 0 low Not Available [facility] [address] [place] [address], [address], 08/20/2024 19:02:59 08/21/19 25 08/20/2024 COMP. METAB OLIC PANEL chloride 101 mmol/ L 98-107 normal Not Available [facility] [address] [place] [address], [address], 08/20/2024 19:02:59 08/21/19 25 08/20/2024 COMP. METAB OLIC PANEL carbon dioxide 20 mmol/ L 22-31 low Not Available [facility] [address] [place] [address], [address], 08/20/2024 19:02:59 08/21/19 25 08/20/2024 COMP. METAB OLIC PANEL anion gap 11 (calc ) 7-25 normal Not Available [facility] [address] [place] [address], [address], 08/20/2024 19:02:59 08/21/19 25 08/20/2024 COMP. METAB OLIC PANEL calcium 8.2 mg/dL 8.6-10 .2 low Not Available [facility] [address] [place] [address], [address], 08/20/2024 19:02:59 08/21/19 25 08/20/2024 COMP. METAB OLIC PANEL total protein 6.3 g/dL 6.4-8. 3 low Not Available [facility] [address] [place] [address], [address], 08/20/2024 19:02:59 08/21/19 25 08/20/2024 COMP. METAB OLIC PANEL albumin 3.3 g/dL 3.5-5. 2 low Not Available [facility] [address] [place] [address], [address], 08/20/2024 19:02:59 08/21/19 25 08/20/2024 COMP. METAB OLIC PANEL globulin 3.0 1.5-4. 5 normal Not Available [facility] [address] [place] [address], [address], 08/20/2024 19:02:59 08/21/19 25 08/20/2024 COMP. METAB OLIC PANEL albumin/glob ulin ratio 1.1 (calc ) 1.1-2. 5 normal Not Available [facility] [address] [place] [address], [address], 08/20/2024 19:02:59 08/21/19 25 08/20/2024 COMP. METAB OLIC PANEL bilirubin, total 0.6 mg/dL 0.1-1. 2 normal Not Available [facility] [address] [place] [address], [address], 08/20/2024 19:02:59 08/21/19 25 08/20/2024 COMP. METAB OLIC PANEL alkaline phosphatase 69 U/L 30-121 normal Not Available [facility] [address] [place], [address], 08/20/2024 19:02:59 08/21/19 25 08/20/2024 COMP. METAB OLIC PANEL AST 14 U/L 0-32 normal Not Available [facility] [address] [place] [address], [address], 08/20/2024 19:02:59 08/21/19 25 08/20/2024 COMP. METAB OLIC PANEL ALT 23 U/L 0-33 normal Not Available [facility] [address] [place] [address], [address], 08/20/2024 19:02:59 08/21/19 25 08/20/2024 COMP. METAB OLIC PANEL eGFR 47 >= 60 abnormal NOT E New calcu latio n for GFR (CKD- EPI 2020) is formu lated witho ut race adjus tment facto rs at the recom menda tion of the [employer] ation and Ameri lyudmila [employer] ty of Nephr ology . This calcu latio n has not been valid ated in pregn ant women . For pedia tric patie nts refer to https ://sunni dolan.renan rg/pr natasha campbell s/KDO QI/gf r_cal culat orPed Not Available [facility] [address] [place] [address], [address], 08/20/2024 19:02:59 08/21/19 25 08/20/2024 C REACT ANGELA PROTE IN C reactive protein 10.31 mg/dL 0.00-0 .49 high Not Available [facility] [address] [place] [address], [address], 08/20/2024 19:03:01 08/21/19 25 08/20/2024 ESR, AUTOM ATED ESR, automated 13 mm 0-29 normal Not Available [facility] [address] [place] [address], [address], 08/20/2024 20:37:18 08/21/19 25 08/20/2024 COMPL ETE BLOOD COUNT white blood cells 2.2 10*3/ uL 3.8-10 .8 low Not Available [facility] [address] [place], [address], 08/20/2024 21:30:30 08/21/19 25 08/20/2024 COMPL ETE BLOOD COUNT red blood cells 2.35 10*6/ uL 3.80-5 .20 low Not Available [facility] [address] [place], [address], 08/20/2024 21:30:30 08/21/19 25 08/20/2024 COMPL ETE BLOOD COUNT hemoglobin 6.5 g/dL 12.0-1 6.0 critical low RESUL TS RECHE CKED. CRITI MURALI RESUL TS STANLEY D TO AND ACCUR ATELY READ BACK BY: Yessica Reid MD ON: 08/20 AT: 19:56 BY: ST Not Available [facility] [address] [place] [address], [id number], 08/20/2024 21:30:30 08/21/19 25 08/20/2024 COMPL ETE BLOOD COUNT hematocrit 18.8 % 35.0-4 7.0 critical low RESUL TS RECHE CKED. CRITI MURALI RESUL TS STANLEY D TO AND ACCUR ATELY READ BACK BY: Yessica Reid MD ON: 08/20 AT: 19:56 BY: ST Not Available [facility] [address] [place], [id number], 08/20/2024 21:30:30 08/21/19 25 08/20/2024 COMPL ETE BLOOD COUNT MCV 80 fL 80-100 normal Not Available [facility] [address] [place], [address], 08/20/2024 21:30:30 08/21/19 25 08/20/2024 COMPL ETE BLOOD COUNT MCH 28 pg 26-35 normal Not Available [facility] [address] [place] [address], [address], 08/20/2024 21:30:30 08/21/19 25 08/20/2024 COMPL ETE BLOOD COUNT MCHC 35 g/dL 32-36 normal Not Available [facility] [address] [place] [address], [address], 08/20/2024 21:30:30 08/21/19 25 08/20/2024 COMPL ETE BLOOD COUNT RDW 16.8 % 11.0-1 5.0 high Not Available [facility] [address] [place] [address], [address], 08/20/2024 21:30:30 08/21/19 25 08/20/2024 COMPL ETE BLOOD COUNT MPV 10.3 fL 6.2-10 .5 normal Not Available [facility] [address] [place] [address], [address], 08/20/2024 21:30:30 08/21/19 25 08/20/2024 COMPL ETE BLOOD COUNT platelet count 47 10*3/ uL 150-40 0 low Not Available [facility] [address] [place] [address], [address], 08/20/2024 21:30:30 08/21/19 25 08/20/2024 COMPL ETE BLOOD COUNT neutrophil,a bsolute 1.6 10*3/ uL 1.6-8. 4 normal Not Available [facility] [address] [place] [address], [address], 08/20/2024 21:30:30 08/21/19 25 08/20/2024 COMPL ETE BLOOD COUNT lymphocyte,a bsolute 0.4 10*3/ uL 0.4-5. 1 normal Not Available [facility] [address] [place] [address], [address], 08/20/2024 21:30:30 08/21/19 25 08/20/2024 COMPL ETE BLOOD COUNT monocyte,abs olute 0.2 10*3/ uL 0.0-1. 2 normal Not Available [facility] [address] [place] [address], [address], 08/20/2024 21:30:30 08/21/19 25 08/20/2024 COMPL ETE BLOOD COUNT eosinophil,a bsolute 0.0 10*3/ uL 0.0-0. 8 normal Not Available [facility] [address] [place] [address], [address], 08/20/2024 21:30:30 08/21/19 25 08/20/2024 COMPL ETE BLOOD COUNT basophil,abs olute 0.0 10*3/ uL 0.0-0. 3 normal Not Available [facility] [address] [place] [address], [address], 08/20/2024 21:30:30 08/21/19 25 08/20/2024 COMPL ETE BLOOD COUNT % neutrophils 73.0 % 42.0-7 8.0 normal Not Available [facility] [address] [place] [address], [address], 08/20/2024 21:30:30 08/21/19 25 08/20/2024 COMPL ETE BLOOD COUNT % lymphocytes 16.0 % 11.0-4 7.0 normal Not Available [facility] [address] [place] [address], [address], 08/20/2024 21:30:30 08/21/19 25 08/20/2024 COMPL ETE BLOOD COUNT % monocytes 11.0 % 0.0-11 .0 normal Not Available [facility] [address] [place] [address], [address], 08/20/2024 21:30:30 08/21/19 25 08/20/2024 COMPL ETE BLOOD COUNT % eosinophils 0.0 % 0.0-7. 0 normal Not Available [facility] [address] [place] [address], [address], 08/20/2024 21:30:30 08/21/19 25 08/20/2024 COMPL ETE BLOOD COUNT % basophils 0.0 % 0.0-3. 0 normal Not Available [facility] [address] [place] [address], [address], 08/20/2024 21:30:30 08/21/19 25 08/20/2024 COMPL ETE BLOOD COUNT nucleated red cells 0.6 % 0.0-0. 9 normal Not Available [facility] [address] [place] [address], [address], 08/20/2024 21:30:30 08/21/19 25 08/20/2024 COMPL ETE BLOOD COUNT nucleated RBCs, absolute 0.01 10*3/ uL not estab. normal Not Available [facility] [address] [place] [address], [address], 08/20/2024 21:30:30 08/21/19 25 08/20/2024 MANUA L DIFFE RENTI AL % band neutrophils 0.0 % 0.0-7. 0 normal Not Available [facility] [address] [place] [address], [address], 08/20/2024 21:30:32 08/21/19 25 08/20/2024 MANUA L DIFFE RENTI AL % atypical lymphocytes 0 % 0-1 normal Not Available [facility] [address] [place] [address], [address], 08/20/2024 21:30:32 08/21/19 25 08/20/2024 MANUA L DIFFE RENTI AL % metamyelocyt es 0 % 0-1 normal Not Available [facility] [address] [place] [address], [address], 08/20/2024 21:30:32 08/21/19 25 08/20/2024 MANUA L DIFFE RENTI AL % myelocytes 0 % 0-1 normal Not Available [facility] [address] [place] [address], [address], 08/20/2024 21:30:32 08/21/19 25 08/20/2024 MANUA L DIFFE RENTI AL % promyelocyte s 0 % 0 normal Not Available [facility] [address] [place] [address], [address], 08/20/2024 21:30:32 08/21/19 25 08/20/2024 MANUA L DIFFE RENTI AL % blast 0 % 0 normal Not Available [facility] [address] [place] [address], [address], 08/20/2024 21:30:32 08/21/19 25 08/20/2024 MANUA L DIFFE RENTI AL nucleated red cells 0 /100{ WBC} 0-1 normal Not Available [facility] [address] [place] [address], [address], 08/20/2024 21:30:32 08/21/19 25 08/20/2024 MANUA L DIFFE RENTI AL smudge cells 0 /100{ WBC} 0 normal Not Available [facility] [address] [place] [address], [address], 08/20/2024 21:30:32 08/21/19 25 08/20/2024 MANUA L DIFFE RENTI AL platelet morphology NORMAL normal Not Available [facility] [address] [place] [address], [address], 08/20/2024 21:30:32 08/21/19 25 08/20/2024 MANUA L DIFFE RENTI AL microcytosis SLIGHT abnormal Not Available [facility] [address] [place] [address], [address], 08/20/2024 21:30:32 08/21/19 25 08/20/2024 MANUA L DIFFE RENTI AL hypochromasi a SLIGHT abnormal Not Available [facility] [address] [place] [address], [address], 08/20/2024 21:30:32 08/21/19 25 08/20/2024 MANUA L DIFFE RENTI AL polychromasi a SLIGHT abnormal Not Available [facility] [address] [place] [address], [address], 08/20/2024 21:30:32 08/04/19 25 08/03/2024 XR, chest , [address] [address] [phone] Patien t Name: HAYLEY SMALLS Patien t : [birth year] Patien t [...] Diego Longoria MD on 025 2:21 PM [facility] [address], [address], 08/06/2024 14:38:44 08/04/19 25 08/03/2024 XR, ankle , 3 or more view [address] [place] [address] [phone] Patien t Name: HAYLEY SMALLS Patichuy t : [birth year] Patien t [...] Ryan castaneda MD on 025 2:25 PM [facility] [address], [address], 08/06/2024 14:38:44 Result Notes Documentation Provider Name and Address Organization Details Recorded Time Xr, Chest, 2 View : [address] [address] Patient Name: HAYLEY SMALLS Patient : 1950 Patient Ordering Provider: KEENA [...] CT chest Interpreted By: Diego Longoria MD [facility] 08/06/2024 14:38:44 Xr, Ankle, 3 Or More View : [address] [id number] Patient Name: HAYLEY SMALLS Patient : 1950 Patient Ordering Provider: KEENA [...] discrete fracture. Interpreted By: Amando Garcia MD [facility] 08/06/2024 14:38:44 Medical Equipment None Reported. Allergies Allergen ID Allergen Name Allergen Category Reaction Reaction Severity Criticality Documentation Date Start Date Code Code System Note Provider Name and Address Organization Details Recorded Time 426746 codeine medicatio n Not available Not available Not available 02/02/20162011 2670 RxNorm Comme nt: Creat ed By: Antonieta cline Creat ed Date: 2011 8:33: 42 AM; Not Available [facility] 6 05:52:00 [id number] methotrex ate medicatio n other moderate Not available 08/20/2024 6851 RxNorm KEENA LI MD [address] [place] [address], [address] [place] [address] 16:03:59 Medications Name Sig Start Date Stop [...] hours by oral route for 7 days. 09/03 completed Not Available Not Available Not Available folic acid 1 mg tablet Take 1 [...] in Arterial blood by Pulse oximetry Systolic And Diastolic Provider Name and Address Organization Details Last Updated DateTime 5 14210.6 7 g 23.9 kg/m2 167.64 cm 61 /min 14 /min 99 % 99 % 122/60 mm[Hg] [facility] 5 13:14:44 Date Recorded Body height Body mass index (BMI) Body weight Respiratory rate Heart rate Oxygen saturation Oxygen saturation in Arterial blood by Pulse oximetry Systolic And Diastolic Provider Name and Address Organization Details Last Updated DateTime 5 167.64 cm 23.6 kg/m2 14026.4 9 g 14 /min 87 /min 97 % 97 % 110/70 mm[Hg] [facility] 5 15:32:24 Social History Question Answer Notes LastModified by Organizat ion Details LastModified Time Tobacco Smoking Status Never Smoker [facility] 08/03/2024 13:13:20 What Was The [...] SNOMED-CT Code Diagnosis ICD10 Code Diagnosis Note [id number] KEENA LI MD RHEUMATOL [facility] [address] [place] [address] 08/03/2024 12:39:40 08/07/2024 04:36:45 Seropositive rheumatoid arthritis 569437389 M05.9 + RF, + synovitis - additional labs as below- prednisone 20 mg tapering by 5 mg every 5 days till off- start methotrexa te 15 mg (6 tablets) weekly- daily 1 mg folic acid- CXR- request last XR of the hands and cervical spine Anemia 883089422 D64.89 May be due to longstandi ng inflammati on - check CBC today Long-term current use of drug therapy 628109076 Z79.899 - labs every 4 weeks x [...] contraindi cated while taking methotrexa te. Fatigue 54264271 R53.82 Fall W19.XXXA - XR of the left ankle today [id number] KEENA LI MD RHEUMATOL [facility] [address] [place] [address] 08/20/2024 14:01:20 08/21/2024 04:19:49 Seropositive rheumatoid arthritis 661897283 M05.9 + RF, + synovitis - prednisone [...] for further evaluation of pancytopen ia Anemia 943305014 D64.89 May be due to longstandi ng inflammati on - check CBC today Long-term current use of drug therapy 623517566 Z79.899 - stopped methotrexa te- will bring back when resolved to discuss next steps when mucositis is resolved Fatigue 85817752 R53.82 - labs today Stomatitis 78761384 K12. 30 This is a dramatic reaction [...] Name 08/03/2024 2 [place] Hayley A Paterson [id number] Hayley A Haresh 08/03/2024 1 [employer] (MEDICARE REPLACEMENT/A DVANTAGE - HMO) [id number] Hayley Haresh [id number] Hayley A Paterson 08/22/2024 1 [employer] (MEDICARE REPLACEMENT/A DVANTAGE - PPO) Hayley A Paterson [id number] Hayley A Paterson Notes Date Note Type Note Provider Name and Address Organization Details Recorded Time 08/03/2024 text/html Hayley Smalls is a 74 yo woman with past [...] a blockage. She goes to see the geographic information systems analyst every 6 months. Took prednisone yesterday. She had labs sent with her referral which were notable for mild pancytopenia with white blood cell count 3.9, hemoglobin 11.2, platelets 103. She had elevated inflammatory markers ESR 39 and CRP 38.1 (0-4), CKD with creatinine 1.3, elevated CK1 34. + RF IgM 21, + RF IgA 9. KEENA LI MD [address] [place] [address], [address], [facility] 08/06/2024 20:07:45 08/20/2024 text/html Hayley Smalls is a 74 yo woman with past [...] a blockage. She goes to see the geographic information systems analyst every 6 months. Took prednisone yesterday. She [...] slightly, but still present. KEENA LI MD [employer] [facility] [place], [address], [facility] 08/20/2024 20:38:21 OBGyn Episode No OBEpisode recorded.
--- OUTSIDE RECORDS SUMMARY | 2024-09-16 09:00 | XMS_ITS | Continuity of Care Document ---
Author Organization [facility], RHEUMATOLOGY [place] Address [address] [place] [address] Care Team Providers Care Thermal Technician Name Role Phone BETHANY WOLFE Referring Provider [phone] BETHANY WOLFE Primary Care Provider KEENA LI Dampproofer Assessment No assessment recorded. Plan of Treatment Reminders Order Date Submit Date Provider Last Modified By Organization Details Last Modified Time Details Appointments RHEUM RECHECK 2024 10:45A M KEENA LI MD Not available Not available Not available Lab CBC w/ auto diff 2024 025 [facility], [address] [place] [address], [address], 08/03/2024 15:27:43 CMP, serum or plasma 2024 025 [facility], [address] [place] [address], [address], 08/03/2024 15:48:05 ESR (erythro cyte sediment ation rate), blood 2024 025 [facility], [address] [place] [address], [address], 08/03/2024 18:34:41 C reactive protein, QN, serum or plasma 2024 025 [facility], [address] [place] [address], [address], 08/03/2024 15:48:02 vitamin D, 25-hydro xy, total, serum 2024 025 [facility], [address] [place] [address], [address], 08/03/2024 15:34:19 CK (creatin e kinase), total, serum 2024 025 [facility], [address] [place] [address], [address], 08/03/2024 15:48:03 vitamin B12, serum 2024 025 [facility], [address] [place] [address], [address], 08/03/2024 15:34:21 folate, serum 2024 025 [facility], [address] [place] [address], [address], 08/03/2024 15:34:18 TSH, serum, reflex free T4 2024 025 [facility], [address] [place] [address], [address], 08/03/2024 15:29:12 ccp (cyclic citrulli nated peptide) iga+igg, serum 2024 025 [facility], [address] [place] [address], [address], 08/05/2024 16:39:40 CBC w/ auto diff 2024 025 [email or web address], [address] [place] [address], [address], 08/10/2024 08:04:48 CMP, serum or plasma [address] [facility], [address] [place] [address], [address], 08/10/2024 08:04:48 ESR (erythro cyte sediment ation rate), blood [address] [facility], [address] [place] [address], [address], 08/10/2024 08:04:48 C reactive protein, QN, serum or plasma [address] [facility], [address] [place] [address], [address], 08/10/2024 08:04:48 Mycobact erium tubercul osis stimulat ed gamma interfer on, qual, blood 2024 [facility], [address] [place] [address], [address], 08/05/2024 15:38:07 hepatiti s (A+B+C) panel, serum 2024 [facility], [address] [place] [address], [address], 08/03/2024 15:28:56 Referral None recorded . Procedures None recorded . Surgeries None recorded . Imaging XR, ankle, 3 or more view 2024 [facility], [address] [place] [address], [address], 08/03/2024 14:30:45 XR, chest, 2 view 2024 [facility], [address] [place] [address], [address], 08/03/2024 14:26:18 Medication Orders predniso ne 5 mg tablet 2024 [facility] 593, [address], [address], 08/03/2024 13:45:28 methotre xate sodium 2.5 mg tablet 2024 025 [facility] 591, [address] [place], [address], 08/20/2024 15:33:39 folic acid 1 mg tablet 2024 025 [facility] 591, [address] [place], [address], 08/20/2024 15:33:44 Patient TargetsNo targets recorded. Patient Instructions Encounter Date Encounter Id Patient Instructions Last Modified By Organization Details Last Modified Time 08/03/2024 [id number] medical record request* - Please send the X rays on the hands and the cervical spine [email or web address] Not available 08/10/2024 08:04:54 I spent >60 minutes caring for the patient today with counseling, coordinating care, extensive review of outside records, medication management, and documentation. Not available 08/06/2024 20:07:40 Reason for Referral None Reported. Results Created Date Observation Date Name Description Value Unit Range Abnormal Flag Note LastModifiedBy Organization Detail LastModifiedTime 08/04/1908/03/2024 XR, chest , 2 view [facility] [address] [place] [address] [phone] Patien t Name: KHUSHI HUTSON Patien t [...] Diego Longoria MD on 025 2:[address] [facility], [address], 08/06/2024 14:38:44 08/04/19 25 08/03/2024 XR, ankle , 3 or more view [address] [address] Patien t Name: KHUSHI HUTSON Patien t [...] Ryan castaneda MD on 025 2:[address] [facility] [address], [address], 08/06/2024 14:38:44 Result Notes Documentation Provider Name and Address Organization Details Recorded Time Xr, Chest, 2 View : [address] [address] Patient Name: KHUSHI Quiroga HARESH Patient : [...] CT chest Interpreted By: Diego Longoria MD [facility] 08/06/2024 14:38:44 Xr, Ankle, 3 Or More View : [place] [id number] Patient Name: KHUSHI HUTSON Patient : 1950 [...] discrete fracture. Interpreted By: Amando Garcia MD [facility] 08/06/2024 14:38:44 Medical Equipment None Reported. Allergies Allergen ID Allergen Name Allergen Category Reaction Reaction Severity Criticality Documentation Date Start Date Code Code System Note Provider Name and Address Organization Details Recorded Time 653203 codeine medicatio n Not available Not available Not available 02/02/20162011 2670 RxNorm Comme nt: Creat ed By: Antonieta Alcala ed Date: 2011 8:33: 42 AM; Not Available [facility] 6 05:52:00 048285 methotrex ate medicatio n other moderate Not available 08/20/2024 6851 RxNorm KEENA LI MD [facility] [place], [address] , [facility] 16:03:59 Medications Name Sig [...] and Address Organization Details Last Updated DateTime 51214.6 7 g 23.9 kg/m2 167.64 cm 61 /min 14 /min 99 % 99 % 122/60 mm[Hg] [facility] 05/27/202 5 13:14:44 Social History Question Answer Notes LastModified by Organizat ion Details LastModified Time Tobacco Smoking Status Never Smoker [facility] 08/03/2024 13:13:20 What Was The Date Of [...] SNOMED-CT Code Diagnosis ICD10 Code Diagnosis Note [id number] KEENA LI MD RHEUMATOL [facility] [address] [place] [address] 08/03/2024 12:39:40 08/07/2024 04:36:45 Seropositive rheumatoid arthritis 466842141 M05.9 + RF, + synovitis - additional labs as below- prednisone 20 mg tapering by 5 mg every 5 days till off- start methotrexa te 15 mg (6 tablets) weekly- daily 1 mg folic acid- CXR- request last XR of the hands and cervical spine Anemia 570766775 D64.89 May be due to longstandi ng inflammati on - check CBC today Long-term current use of drug therapy 718773211 Z79.899 - labs every 4 weeks x [...] contraindi cated while taking methotrexa te. Fatigue 35741491 R53.82 Fall W19.XXXA - XR of the left ankle today Health Concerns Section Related Observation LastModified by Organization Thomas ls LastModified Time None Recorded Concern Status LastModified by Organization Details LastModified Time None Recorded Payers Encounter Date Sequence Insurance Name Policy Number Policy Roland Covered Member ID Roland Member ID Guarantor Name 08/03/2024 1 [employer] (MEDICARE REPLACEMENT/A DVANTAGE - PPO) Khushi Hutson [id number] Khushi Hutson Notes Date Note Type Note Provider Name and Address Organization Details Recorded Time 08/03/2024 text/html Khushi Hutson is a 74 yo woman with past medical history of hypertension, hyperlipidemia, coronary artery disease status post [place], hypothyroidism who presents for further evaluation of [...] a blockage. She goes to see the lacquer mixer every 6 months. Took prednisone yesterday. She had labs sent with her referral which were notable for mild pancytopenia with white blood cell count 3.9, hemoglobin 11.2, platelets 103. She had elevated inflammatory markers ESR 39 and CRP 38.1 (0-4), CKD with creatinine 1.3, elevated CK1 34. + RF IgM 21, + RF IgA 9. KEENA LI MD [address] [place], [address], [facility] 08/06/2024 20:07:45 OBGyn Episode No OBEpisode recorded.
--- OUTSIDE RECORDS SUMMARY | 2024-09-16 09:00 | XMS_ITS | Continuity of Care Document ---
Author Organization [facility], [facility] Address [address] [place] [address] Care Team Providers Care Linux Systems Administrator Name Role Phone BETHANY WOLFE Referring Provider BETHANY WOLFE Primary Care Provider [phone] KEENA [place] Traffic Circuit Engineer Assessment No assessment recorded. Plan of Treatment Reminders Order Date Submit Date Provider Last Modified By Organization Details Last Modified Time Details Appointments RHEUM RECHECK 2024 10:45A M KEENA LI MD Not available Not available Not available Lab CBC w/ auto diff 2024 025 [facility], [address] [place] [address], [phone], 08/20/2024 21:30:30 CMP, serum or plasma 2024 025 [facility], [address] [place] [address], [phone], 08/20/2024 19:03:00 Referral None recorded . Procedures None recorded . Surgeries None recorded . Imaging None recorded . Medication Orders predniso ne 5 mg tablet 2024 025 [facility], [address], [address], 08/20/2024 16:09:49 Valtrex 1 gram tablet 2024 025 [facility], [address] [place], [address], 09/03/2024 05:02:12 Compound Magic Mouthwas h #10 (Dipheny dramine/ Nystatin /Maalox/ Lidocain e 1:1:1:1) 2024 025 [facility], [address], [place], [address], 08/20/2024 16:09:46 Patient TargetsNo targets recorded. Patient InstructionsNo instructions recorded. Reason for Referral None Reported. Results Created Date Observation Date Name Description Value Unit Range Abnormal Flag Note LastModifiedBy Organization Detail LastModifiedTime 08/04/1908/03/2024 XR, chest , [address] [place] [address] Patien t Name: HAYLEY HUTSON Patien t : [birth year] 53 Patien [...] Diego Longoria MD on 025 2:21 PM [facility] [address], [address], 08/06/2024 14:38:44 08/04/1908/03/2024 XR, ankle , 3 or more view [address] [address] Patien t Name: HAYLEY Cheung t : [birth year] 53 Patien t [...] Ryan castaneda MD on 025 2:25 PM [facility] [address] [place] [address], [phone], 08/06/2024 14:38:44 Result Notes None recorded. Medical Equipment None Reported. Allergies Allergen ID Allergen Name Allergen Category Reaction Reaction Severity Criticality Documentation Date Start Date Code Code System Note Provider Name and Address Organization Details Recorded Time 544559 codeine medicatio n Not available Not available Not available 02/02/20162011 2670 RxNorm Comme nt: Creat ed By: Antonieta moreno; Creat ed Date: 2011 8:33: 42 AM; Not Available [facility] 6 05:52:00 822700 methotrex ate medicatio n other moderate Not available 08/20/2024 6851 RxNorm KEENA LI MD [address] [place], [address], [facility] 16:03:59 Medications Name Sig Start Date Stop [...] Updated DateTime 5 167.64 cm 23.6 kg/m2 74410.4 9 g 14 /min 87 /min 97 % 97 % 110/70 mm[Hg] [facility] 15:32:24 Social History Question Answer Notes LastModified by Organizat ion Details LastModified Time Tobacco Smoking Status Never Smoker [facility] 08/03/2024 13:13:20 What Was The Date [...] SNOMED-CT Code Diagnosis ICD10 Code Diagnosis Note [id number] KEENA LI MD [facility] [address] [place] [address] 08/03/2024 12:39:40 08/07/2024 04:36:45 Seropositive rheumatoid arthritis 838736351 M05.9 + RF, + synovitis - additional labs as below- prednisone 20 mg tapering by 5 mg every 5 days till off- start methotrexa te 15 mg (6 tablets) weekly- daily 1 mg folic acid- CXR- request last XR of the hands and cervical spine Anemia 881169619 D64.89 May be due to longstandi ng inflammati on - check CBC today Long-term current use of drug therapy 375819083 Z79.899 - labs every 4 weeks x [...] contraindi cated while taking methotrexa te. Fatigue 25546879 R53.82 Fall 5305924 W19.XXXA - XR of the left ankle today [id number] KEENA LI MD [facility] [address] [place] [address] 08/20/2024 14:01:20 08/21/2024 04:19:49 Seropositive rheumatoid arthritis 551530083 M05.9 + RF, + synovitis - prednisone [...] for further evaluation of pancytopen ia Anemia 310984510 D64.89 May be due to longstandi ng inflammati on - check CBC today Long-term current use of drug therapy 186973525 Z79.899 - stopped methotrexa te- will bring back when resolved to discuss next steps when mucositis is resolved Fatigue 36917472 R53.82 - labs today Stomatitis 17859870 K12. 30 This is a dramatic reaction [...] (MEDICARE REPLACEMENT/A DVANTAGE - PPO) Hayley A Haresh [id number] Hayley A Haresh Notes Date Note Type Note Provider Name and Address Organization Details Recorded Time 08/20/2024 text/html Hayley Hutson is a 74 [...] a blockage. She goes to see the alum plant supervisor every 6 months. Took prednisone yesterday. She [...] but still present. KEENA LI MD [address] [place], [address], [place] [facility] 08/20/2024 20:38:21 OBGyn Episode No OBEpisode recorded.
[2024-09-16 09:19] LABS: Hematocrit 25.5 % (37.0-47.0); Hemoglobin 8.0 g/dL (12.2-16.2); Immature Granulocytes % 1.1 %; Mean Corpuscular HGB Conc 31.4 g/dL (31.8-35.4); Mean Corpuscular Hemoglobin 28.3 pg (27.0-31.2); Mean Corpuscular Volume 90.1 fl (81-99); Nucleated Red Blood Cells % 0 %; Platelet Count 117 K/mm3 (142-424); Red Blood Count 2.83 M/mm3 (4.20-5.40); Red Cell Distribution Width-SD 63.5 fL; White Blood Count 5.5 K/mm3 (4.8-10.8)
[2024-09-16 11:04] LABS: Folate 4.27 ng/mL
[2024-09-16 13:38] LABS: Iron 56 ug/dL (37-170)
[2024-09-16 14:25] LABS: Total Iron Binding Capacity 165 ug/dL (265-497)
[2024-09-16 14:29] LABS: Vitamin B12 844 pg/mL (239-931)
[2024-09-16 14:52] LABS: Ferritin 428 ng/ml (11.1-264)
== END 2024-09-16 23:59 | disposition home or self-care (01) ==
LOC: LAB 08:57
PROVIDERS: PCP Internal Medicine; Visit Provider Internal Medicine Medical Oncology
DX: E53.8 Deficiency of other specified B group vitamins (principal); D64.9 Anemia, unspecified
CPT/HCPCS: 36415; 82607; 82728; 82746; 83540; 83550; 85025

== ENCOUNTER 2024-10-01 12:18 | Outpatient (CLI) | payer MEDICARE, SELFPAY ==
[2024-10-01 19:34] LABS: Vitamin B12 > 1000 pg/mL (239-931)
--- OUTSIDE RECORDS SUMMARY | 2024-10-04 12:23 | XMS_ITS | Continuity of Care Document ---
Author Organization [facility] Address [address] [place] [address] Care Team Providers Care Valver Name Role Phone BETHANY WOLFE Referring Provider BETHANY WOLFE Primary Care Provider [phone] KEENA LI Ring Sewer Assessment No assessment recorded. Plan of Treatment Reminders Order Date Submit Date Provider Last Modified By Organization Details Last Modified Time Details Appointments RHEUM RECHECK 2024 03:45P M KEENA LI MD Not available Not available Not available Lab None recorded . Referral None recorded . Procedures None recorded . Surgeries None recorded . Imaging None recorded . Medication Orders predniso ne 5 mg tablet 2024 025 [facility], [address], [address], 09/20/2024 11:14:14 Patient TargetsNo targets recorded. Patient Instructions Encounter Date Encounter Id Patient Instructions Last Modified By Organization Details Last Modified Time 09/20/2024 [id number] medical record request* - Please send hospital discharge summary Not available 09/20/2024 14:43:21 medical record request* - Please send last labs and last office visit notes Not available 10/04/2024 08:24:06 Reason for Referral None Reported. Medical Equipment None Reported. Allergies Allergen ID Allergen Name Allergen Category Reaction Reaction Severity Criticality Documentation Date Start Date Code Code System Note Provider Name and Address Organization Details Recorded Time 252159 codeine medicatio n Not available Not available Not available 02/02/20162011 2670 RxNorm Comme nt: Creat ed By: Antonieta moreno; Creat ed Date: 2011 8:33: 42 AM; Not Available [facility] 6 05:52:00 470987 methotrex ate medicatio n other moderate Not available 08/20/2024 6851 RxNorm KEENA LI MD [address] [place] [address], [address] , [facility] 16:03:59 Medications Name Sig Start Date Stop Date Status Note LastModified by Organization Details LastModified Time Compound Magic Mouthwash #10 (Diphenydr amine/Nyst atin/Maalo x/Lidocain e 1:1:1:1) Swish 5-10 mL up to 4 times daily as needed 2024 active Not Available Not Available Not Avai lable sucralfate 1 gram tablet Take 1 tablet 4 times a day by oral route. active Not Available Not Available No t Available prednisone 5 mg tablet Take 1 tablet every day by oral route. 2024 active Not Available Not Available Not Avai lable methotrexa te sodium 2.5 mg tablet Take 6 tablets every week by oral route. 08/20 completed Not Available Not Available Not Available pantoprazo le 40 mg tablet,del ayed release Take 1 tablet every day by oral route. active Not Available Not Available No t Available Valtrex 1 gram tablet Take 1 [...] Organization Details Last Updated DateTime 167.64 cm 24.4 kg/m2 01295.4 5 g 14 /min 56 /min 97 % 97 % 138/80 mm[Hg] [facility] 10:53:48 Social History Question Answer Notes LastModified by [employer] Details LastModified Time Tobacco Smoking Status Never Smoker [facility] 08/03/2024 13:13:20 What Was The Date Of Your Most Recent Tobacco Screening? 09/20/2024 Information not available 09/20/2024 Sex: Unknown Functional Status Question Answer Note LastModified by [employer] Details LastModified Time Do you use any [...] SNOMED-CT Code Diagnosis ICD10 Code Diagnosis Note [id number] KEENA LI MD [facility] [address] [place] [address] 09/20/2024 10:43:54 09/21/2024 04:55:53 Seropositive rheumatoid arthritis 265086348 M05.9 + RF, - CCP, + synovitis Previous Rx: methotrexa te (extreme mucositis and pancytopen ia) - prednisone 5 mg daily for now- CXR with course density in the left lower base/pleur al thickening -- high res CT has been ordered and she is scheduled for this next week-- I will request records from recent hospitaliz ation to make sure she got the CT scan of the chest- make sure up to date with cancer screening with PCP- agree with follow up with hematology Anemia 116186852 D64.89 May be due to guadalupei ng inflammati on- continue follow up with Dr. Nixon in hematology - request records Long-term current use of drug therapy 815528932 Z79.899 - stopped methotrexa te - We reviewed side effects of prednisone including bone thinning, hyperglyce shu, weight gain, fat redistribu tion, avascular necrosis, increased infection risk, change in lipids and elevation of blood pressure. We discussed risks of adrenal insufficie ncy and the need to take dose every day - to call if unable to take orally. Fatigue 08080306 R53.82 Health Concerns Section Related Observation LastModified by Organization Detai ls LastModified Time None Recorded Concern Status LastModified by Organization Details LastModified Time None Recorded Payers Encounter Date Sequence Insurance Name Policy Number Policy Roland Covered Member ID Roland Member ID Guarantor Name 09/20/2024 1 [employer] (MEDICARE REPLACEMENT/A DVANTAGE - PPO) Hayley A Vilas [id number] Hayley A Vilas OBGyn Episode No OBEpisode recorded.
--- OUTSIDE RECORDS SUMMARY | 2024-10-04 12:23 | XMS_ITS | Data Portability ---
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 Plan of Treatment Reminders Order Date Submit Date Provider Last Modified By Organization Details Last Modified Time Details Appointments RHEUM RECHECK 2024 03:45P M KEENA LI MD Not available Not available Not available Lab CBC w/ auto diff 2024 025 [facility], [address] [place] [address], [id number], 08/20/2024 21:30:30 CMP, serum or plasma 2024 025 [facility], [address] [place] [address], [id number], 08/20/2024 19:03:00 CBC w/ auto diff 2024 025 [facility], [address] [place] [address], [address], 08/03/2024 15:27:43 CMP, serum or plasma 2024 025 [facility], [address] [place] [address], [address], 08/03/2024 15:48:05 ESR (erythro cyte sediment ation rate), blood 2024 025 [facility], [address] [place] [address], [address], 08/03/2024 18:34:41 C reactive protein, QN, serum or plasma 2024 025 [facility], [address] [place] [address], [address], 08/03/2024 15:48:02 vitamin D, 25-hydro xy, total, serum 2024 025 [facility], [address] [place] [address], [address], 08/03/2024 15:34:19 CK (creatin e kinase), total, serum 2024 025 [facility], [address] [place] [address], [address], 08/03/2024 15:48:03 vitamin B12, serum 2024 025 [facility], [address] [place] [address], [address], 08/03/2024 15:34:21 folate, serum 2024 025 [facility], [address] [place] [address], [address], 08/03/2024 15:34:18 TSH, serum, reflex free T4 2024 025 [facility], [address] [place] [address], [address], 08/03/2024 15:29:12 ccp (cyclic citrulli nated peptide) iga+igg, serum 2024 025 [facility], [address] [place] [address], [address], 08/05/2024 16:39:40 CBC w/ auto diff [address] [facility], [address] [place] [address], [address], 08/10/2024 08:04:48 CMP, serum or plasma [address] [facility], [address] [place] [address], [address], 08/10/2024 08:04:48 ESR (erythro cyte sediment ation rate), blood [address] [facility], [address] [place] [address], [address], 08/10/2024 08:04:48 C reactive protein, QN, serum or plasma [address] [facility], [address] [place] [address], [address], 08/10/2024 08:04:48 Mycobact erium tubercul osis stimulat ed gamma interfer on, qual, blood 2024 [facility], [address] [place] [address], [id number], 08/05/2024 15:38:07 hepatiti s (A+B+C) panel, serum 2024 [facility], [address] [place] [address], [id number], 08/03/2024 15:28:56 Referral None recorded . Procedures None recorded . Surgeries None recorded . Imaging XR, ankle, 3 or more view 2024 [facility], [address] [place] [address], [address], 08/03/2024 14:30:45 XR, chest, 2 view 2024 [facility], [address] [facility], [place], [address], 08/03/2024 14:26:18 Medication Orders predniso ne 5 mg tablet 2024 025 [facility], [address], [address], 09/20/2024 11:14:14 predniso ne 5 mg tablet 2024 025 [facility], [address], [address], 08/20/2024 16:09:49 Valtrex 1 gram tablet 2024 025 [facility], [address], [address], 09/03/2024 05:02:12 Compound Magic Mouthwas h #10 (Dipheny dramine/ Nystatin /Maalox/ Lidocain e 1:1:1:1) 2024 025 [facility], [address], [address], 08/20/2024 16:09:46 predniso ne 5 mg tablet 2024 025 [facility], [address], [address], 08/03/2024 13:45:28 methotre xate sodium 2.5 mg tablet 2024 025 [facility], [address], [address], 08/20/2024 15:33:39 folic acid 1 mg tablet 2024 025 [facility], [address], [address], 08/20/2024 15:33:44 Patient TargetsNo targets recorded. Patient Instructions Encounter Date Encounter Id Patient Instructions Last Modified By Organization Details Last Modified Time 08/03/2024 [id number] medical record request* - Please send the X rays on the hands and the cervical spine [email or web address] Not available 08/10/2024 08:04:54 I spent >60 minutes caring for the patient today with counseling, coordinating care, extensive review of outside records, medication management, and documentation. [email or web address] Not available 08/06/2024 20:07:40 09/20/2024 [id number] medical record request* - Please send hospital discharge summary Not available 09/20/2024 14:43:21 medical record request* - Please send last labs and last office visit notes Not available 10/04/2024 08:24:06 Reason for Referral None Reported. Results Created Date Observation Date Name Description Value Unit Range Abnormal Flag Note LastModifiedBy Organization Detail LastModifiedTime 08/04/19 25 08/03/2024 COMPL ETE BLOOD COUNT white blood cells 5.1 10*3/ uL 3.8-10 .8 normal Not Available [facility] [address] [place] [address], [address], 08/03/2024 15:27:43 08/04/19 25 08/03/2024 COMPL ETE BLOOD COUNT red blood cells 3.42 10*6/ uL 3.80-5 .20 low Not Available [facility] [address] [place] [address], [address], 08/03/2024 15:27:43 08/04/19 25 08/03/2024 COMPL ETE BLOOD COUNT hemoglobin 9.3 g/dL 12.0-1 6.0 low Not Available [facility] [address] [place] [address], [address], 08/03/2024 15:27:43 08/04/19 25 08/03/2024 COMPL ETE BLOOD COUNT hematocrit 27.8 % 35.0-4 7.0 low Not Available [facility] [address] [place] [address], [address], 08/03/2024 15:27:43 08/04/19 25 08/03/2024 COMPL ETE BLOOD COUNT MCV 82 fL 80-100 normal Not Available [facility] [address] [place] [address], [address], 08/03/2024 15:27:43 08/04/19 25 08/03/2024 COMPL ETE BLOOD COUNT MCH 27 pg 26-35 normal Not Available [facility] [address] [place] [address], [address], 08/03/2024 15:27:43 08/04/19 25 08/03/2024 COMPL ETE BLOOD COUNT MCHC 33 g/dL 32-36 normal Not Available [facility] [address] [place] [address], [address], 08/03/2024 15:27:43 08/04/19 25 08/03/2024 COMPL ETE BLOOD COUNT RDW 17.3 % 11.0-1 5.0 high Not Available [facility] [address] [place] [address], [address], 08/03/2024 15:27:43 08/04/19 25 08/03/2024 COMPL ETE BLOOD COUNT MPV 10.6 fL 6.2-10 .5 high Not Available [facility] [address] [place] [address], [address], 08/03/2024 15:27:43 08/04/19 25 08/03/2024 COMPL ETE BLOOD COUNT platelet count 54 10*3/ uL 150-40 0 low Not Available [facility] [address] [place] [address], [address], 08/03/2024 15:27:43 08/04/19 25 08/03/2024 COMPL ETE BLOOD COUNT neutrophil,a bsolute 4.1 10*3/ uL 1.6-8. 4 normal Not Available [facility] [address] [place] [address], [address], 08/03/2024 15:27:43 08/04/19 25 08/03/2024 COMPL ETE BLOOD COUNT lymphocyte,a bsolute 0.7 10*3/ uL 0.4-5. 1 normal Not Available [facility] [address] [place] [address], [address], 08/03/2024 15:27:43 08/04/19 25 08/03/2024 COMPL ETE BLOOD COUNT monocyte,abs olute 0.2 10*3/ uL 0.0-1. 2 normal Not Available [facility] [address] [place] [address], [address], 08/03/2024 15:27:43 08/04/19 25 08/03/2024 COMPL ETE BLOOD COUNT eosinophil,a bsolute 0.1 10*3/ uL 0.0-0. 8 normal Not Available [facility] [address] [place] [address], [address], 08/03/2024 15:27:43 08/04/19 25 08/03/2024 COMPL ETE BLOOD COUNT basophil,abs olute 0.0 10*3/ uL 0.0-0. 3 normal Not Available [facility] [address] [place] [address], [address], 08/03/2024 15:27:43 08/04/19 25 08/03/2024 COMPL ETE BLOOD COUNT % neutrophils 81.1 % 42.0-7 8.0 high Not Available [facility] [address] [place] [address], [address], 08/03/2024 15:27:43 08/04/19 25 08/03/2024 COMPL ETE BLOOD COUNT % lymphocytes 13.7 % 11.0-4 7.0 normal Not Available [facility] [address] [place] [address], [address], 08/03/2024 15:27:43 08/04/19 25 08/03/2024 COMPL ETE BLOOD COUNT % monocytes 3.2 % 0.0-11 .0 normal Not Available [facility] [address] [place] [address], [address], 08/03/2024 15:27:43 08/04/19 25 08/03/2024 COMPL ETE BLOOD COUNT % eosinophils 1.5 % 0.0-7. 0 normal Not Available [facility] [address] [place] [address], [address], 08/03/2024 15:27:43 08/04/19 25 08/03/2024 COMPL ETE BLOOD COUNT % basophils 0.5 % 0.0-3. 0 normal Not Available [facility] [address] [place] [address], [address], 08/03/2024 15:27:43 08/04/19 25 08/03/2024 COMPL ETE BLOOD COUNT nucleated red cells 0.1 % 0.0-0. 9 normal Not Available [facility] [address] [place] [address], [address], 08/03/2024 15:27:43 08/04/19 25 08/03/2024 COMPL ETE BLOOD COUNT nucleated RBCs, absolute 0.00 10*3/ uL not estab. normal Not Available [facility] [address] [place] [address], [address], 08/03/2024 15:27:43 08/04/19 25 08/03/2024 HEPAT ITIS PANEL hepatitis A Ab, IgM NONREA CTIVE nonrea ctive normal Not Available [facility] [address] [place] [address], [address], 08/03/2024 15:28:56 08/04/19 25 08/03/2024 HEPAT ITIS PANEL hepatitis B surface Ag NONREA CTIVE nonrea ctive normal Not Available [facility] [address] [place] [address], [address], 08/03/2024 15:28:56 08/04/19 25 08/03/2024 HEPAT ITIS PANEL hepatitis B core Ab,IgM NONREA CTIVE nonrea ctive normal Not Available [facility] [address] [place] [address], [address], 08/03/2024 15:28:56 08/04/19 25 08/03/2024 HEPAT ITIS PANEL hcab, reflex viral RNA qt NONREA CTIVE nonrea ctive normal Antib odies to HCV were not detec shayla; does not exclu de the possi bilit y of expos ure to HCV. Not Available [facility] [address] [place] [address], [address], 08/03/2024 15:28:56 08/04/19 25 08/03/2024 TSH WITH REFLE X FT4 TSH with reflex FT4 1.470 u[IU] /mL 0.270- 4.200 normal Not Available [facility] [address] [place] [address], [address], 08/03/2024 15:29:12 08/04/19 25 08/03/2024 FOLIC ACID folic acid 4.8 NG/mL 4.6-34 .8 normal Not Available [facility] [address] [place] [address], [address], 08/03/2024 15:34:18 08/04/19 25 08/03/2024 VITAM IN D 25-OH vitamin D 25-oh, total 15 NG/mL >=30 NG/mL abnormal Not Available [facility] [address] [place] [address], [address], 08/03/2024 15:34:19 08/04/19 25 08/03/2024 VITAM IN B12 vitamin B12 252 pg/mL 232-12 45 normal Not Available [facility] [address] [place] [address], [address], 08/03/2024 15:34:21 08/04/19 25 08/03/2024 C REACT ANGELA PROTE IN C reactive protein 6.15 mg/dL 0.00-0 .49 high Not Available [facility] [address] [place] [address], [address], 08/03/2024 15:48:02 08/04/19 25 08/03/2024 CREAT INE KINAS E creatine kinase 36 U/L 0-169 normal Not Available [facility] [address] [place] [address], [address], 08/03/2024 15:48:03 08/04/19 25 08/03/2024 COMP. METAB OLIC PANEL glucose 91 mg/dL 74-100 normal Not Available [facility] [address] [place] [address], [address], 08/03/2024 15:48:05 08/04/19 25 08/03/2024 COMP. METAB OLIC PANEL blood urea nitrogen 21 mg/dL 6-20 high Not Available [facility] [address] [place] [address], [address], 08/03/2024 15:48:05 08/04/19 25 08/03/2024 COMP. METAB OLIC PANEL creatinine 1.40 mg/dL 0.50-0 .95 high Not Available [facility] [address] [place] [address], [address], 08/03/2024 15:48:05 08/04/19 25 08/03/2024 COMP. METAB OLIC PANEL BUN/creatini ne ratio 15 (calc ) 10-20 normal Not Available [facility] [address] [place] [address], [address], 08/03/2024 15:48:05 08/04/19 25 08/03/2024 COMP. METAB OLIC PANEL sodium 134 mmol/ L 136-14 5 low Not Available [facility] [address] [place] [address], [address], 08/03/2024 15:48:05 08/04/19 25 08/03/2024 COMP. METAB OLIC PANEL potassium 3.3 mmol/ L 3.4-5. 0 low Not Available [facility] [address] [place] [address], [address], 08/03/2024 15:48:05 08/04/19 25 08/03/2024 COMP. METAB OLIC PANEL chloride 103 mmol/ L 98-107 normal Not Available [facility] [address] [place] [address], [address], 08/03/2024 15:48:05 08/04/19 25 08/03/2024 COMP. METAB OLIC PANEL carbon dioxide 20 mmol/ L 22-31 low Not Available [facility] [address] [place] [address], [address], 08/03/2024 15:48:05 08/04/19 25 08/03/2024 COMP. METAB OLIC PANEL anion gap 11 (calc ) 7-25 normal Not Available [facility] [address] [place] [address], [address], 08/03/2024 15:48:05 08/04/19 25 08/03/2024 COMP. METAB OLIC PANEL calcium 8.4 mg/dL 8.6-10 .2 low Not Available [facility] [address] [place] [address], [address], 08/03/2024 15:48:05 08/04/19 25 08/03/2024 COMP. METAB OLIC PANEL total protein 6.9 g/dL 6.4-8. 3 normal Not Available [facility] [address] [place] [address], [address], 08/03/2024 15:48:05 08/04/19 25 08/03/2024 COMP. METAB OLIC PANEL albumin 3.4 g/dL 3.5-5. 2 low Not Available [facility] [address] [place] [address], [address], 08/03/2024 15:48:05 08/04/19 25 08/03/2024 COMP. METAB OLIC PANEL globulin 3.5 1.5-4. 5 normal Not Available [facility] [address] [place] [address], [address], 08/03/2024 15:48:05 08/04/19 25 08/03/2024 COMP. METAB OLIC PANEL albumin/glob ulin ratio 1.0 (calc ) 1.1-2. 5 low Not Available [facility] [address] [place] [address], [address], 08/03/2024 15:48:05 08/04/19 25 08/03/2024 COMP. METAB OLIC PANEL bilirubin, total 0.5 mg/dL 0.1-1. 2 normal Not Available [facility] [address] [place] [address], [address], 08/03/2024 15:48:05 08/04/19 25 08/03/2024 COMP. METAB OLIC PANEL alkaline phosphatase 69 U/L 30-121 normal Not Available [facility] [address] [place] [address], [address], 08/03/2024 15:48:05 08/04/19 25 08/03/2024 COMP. METAB OLIC PANEL AST 18 U/L 0-32 normal Not Available [facility] [address] [place] [address], [address], 08/03/2024 15:48:05 08/04/19 25 08/03/2024 COMP. METAB OLIC PANEL ALT 9 U/L 0-33 normal Not Available [facility] [address] [place] [address], [address], 08/03/2024 15:48:05 08/04/19 25 08/03/2024 COMP. METAB OLIC PANEL GFR 40 >= 60 abnormal NOT E New calcu latio n for GFR (CKD- EPI 2020) is formu lated witho ut race adjus tment facto rs at the recom menda tion of the Natio nal Kidne y Found ation and Ameri can Socie ty of Nephr ology . This calcu latio n has not been valid ated in pregn ant women . For pedia jose patie nts refer to https :[email or web address] [email or web address] rg/pr ofess ional s/KDO QI/gf r_cal culat orPed Not Available [facility] [address] [place] [address], [address], 08/03/2024 15:48:05 08/04/19 25 08/03/2024 ESR, AUTOM ATED ESR, automated 14 mm 0-29 normal Not Available [facility] [address] [place] [address], [address], 08/03/2024 18:34:41 08/04/19 25 08/05/2024 QUANT IFERO N TB GOLD qtb gold NEGATI VE negati ve normal Negat angela test resul t. M. tuber culos is compl ex infec tion unlik grady. Not Available [facility] [place], [address], 08/05/2024 15:38:07 08/04/19 25 08/05/2024 QUANT IFERO N TB GOLD nil 0.04 IU/mL normal Not Available [facility] [place], [address], 08/05/2024 15:38:07 08/04/19 25 08/05/2024 QUANT IFERO N TB GOLD mitogen nil 6.53 IU/mL normal Not Available [facility] [address] [place], [address], 08/05/2024 15:38:07 08/04/19 25 08/05/2024 QUANT IFERO N TB GOLD TB1 nil <0.00 IU/mL normal Not Available [facility] [address] [place] [address], [address], 08/05/2024 15:38:07 08/04/19 25 08/05/2024 QUANT IFERO [...] oxic T-lym phocy aníbal. For addit ional sanar flakita jay e refer to https ://anthony alvarado on.qu marlyn Asteel. Zealify/f aq/FA Q204 (This link is being provi ded for infor iwona gordon/ calli young l purpo ses only. ) Not Available [facility] [address] [place] [address], [address], 08/05/2024 15:38:07 08/04/19 25 08/05/2024 ANTI- CCP anti-ccp <16 units normal Refer ence Range Negat angela: <20 Weak Posit angela: 20-39 Moder ate Posit angela: 40-59 Stron g Posit angela: >59 Not Available [facility] [address] [place] [address], [address], 08/05/2024 16:39:40 08/21/19 25 08/20/2024 COMP. METAB OLIC PANEL glucose 119 mg/dL 74-100 high Not Available [facility] [address] [place] [address], [address], 08/20/2024 19:02:59 08/21/19 25 08/20/2024 COMP. METAB OLIC PANEL blood urea nitrogen 16 mg/dL 6-20 normal Not Available [facility] [address] [place] [address], [address], 08/20/2024 19:02:59 08/21/19 25 08/20/2024 COMP. METAB OLIC PANEL creatinine 1.22 mg/dL 0.50-0 .95 high Not Available [facility] [address] [place] [address], [address], 08/20/2024 19:02:59 08/21/19 25 08/20/2024 COMP. METAB OLIC PANEL BUN/creatini ne ratio 13 (calc ) 10-20 normal Not Available [facility] [address] [place] [address], [address], 08/20/2024 19:02:59 08/21/19 25 08/20/2024 COMP. METAB OLIC PANEL sodium 132 mmol/ L 136-14 5 low Not Available [facility] [address] [place] [address], [address], 08/20/2024 19:02:59 08/21/19 25 08/20/2024 COMP. METAB OLIC PANEL potassium 3.1 mmol/ L 3.4-5. 0 low Not Available [facility] [address] [place] [address], [address], 08/20/2024 19:02:59 08/21/19 25 08/20/2024 COMP. METAB OLIC PANEL chloride 101 mmol/ L 98-107 normal Not Available [facility] [address] [place] [address], [address], 08/20/2024 19:02:59 08/21/19 25 08/20/2024 COMP. METAB OLIC PANEL carbon dioxide 20 mmol/ L 22-31 low Not Available [facility] [address] [place] [address], [address], 08/20/2024 19:02:59 08/21/19 25 08/20/2024 COMP. METAB OLIC PANEL anion gap 11 (calc ) 7-25 normal Not Available [facility] [address] [place] [address], [address], 08/20/2024 19:02:59 08/21/19 25 08/20/2024 COMP. METAB OLIC PANEL calcium 8.2 mg/dL 8.6-10 .2 low Not Available [facility] [address] [place] [address], [address], 08/20/2024 19:02:59 08/21/19 25 08/20/2024 COMP. METAB OLIC PANEL total protein 6.3 g/dL 6.4-8. 3 low Not Available [facility] [address] [place] [address], [address], 08/20/2024 19:02:59 08/21/19 25 08/20/2024 COMP. METAB OLIC PANEL albumin 3.3 g/dL 3.5-5. 2 low Not Available [facility] [address] [place] [address], [address], 08/20/2024 19:02:59 08/21/19 25 08/20/2024 COMP. METAB OLIC PANEL globulin 3.0 1.5-4. 5 normal Not Available [facility] [address] [place] [address], [address], 08/20/2024 19:02:59 08/21/19 25 08/20/2024 COMP. METAB OLIC PANEL albumin/glob ulin ratio 1.1 (calc ) 1.1-2. 5 normal Not Available [facility] [address] [place] [address], [address], 08/20/2024 19:02:59 08/21/19 25 08/20/2024 COMP. METAB OLIC PANEL bilirubin, total 0.6 mg/dL 0.1-1. 2 normal Not Available [facility] [address] [place] [address], [address], 08/20/2024 19:02:59 08/21/19 25 08/20/2024 COMP. METAB OLIC PANEL alkaline phosphatase 69 U/L 30-121 normal Not Available [facility] [address] [place], [address], 08/20/2024 19:02:59 08/21/19 25 08/20/2024 COMP. METAB OLIC PANEL AST 14 U/L 0-32 normal Not Available [facility] [address] [place] [address], [address], 08/20/2024 19:02:59 08/21/19 25 08/20/2024 COMP. METAB OLIC PANEL ALT 23 U/L 0-33 normal Not Available [facility] [address] [place] [address], [address], 08/20/2024 19:02:59 08/21/19 25 08/20/2024 COMP. METAB [...] jose patie nts refer to https ://sunni dolan.renan lr/pr natasha campbell s/ISAO QI/gf r_cal culat orPed Not Available [facility] [address] [place] [address], [address], 08/20/2024 19:02:59 08/21/19 25 08/20/2024 C REACT ANGELA PROTE IN C reactive protein 10.31 mg/dL 0.00-0 .49 high Not Available [facility] [address] [place] [address], [address], 08/20/2024 19:03:01 08/21/19 25 08/20/2024 ESR, AUTOM ATED ESR, automated 13 mm 0-29 normal Not Available [facility] [address] [place] [address], [address], 08/20/2024 20:37:18 08/21/19 25 08/20/2024 COMPL ETE BLOOD COUNT white blood cells 2.2 10*3/ uL 3.8-10 .8 low Not Available [facility] [address] [place] [address], [address], 08/20/2024 21:30:30 08/21/19 25 08/20/2024 COMPL ETE BLOOD COUNT red blood cells 2.35 10*6/ uL 3.80-5 .20 low Not Available [facility] [address] [place] [address], [address], 08/20/2024 21:30:30 08/21/19 25 08/20/2024 COMPL ETE BLOOD COUNT hemoglobin 6.5 g/dL 12.0-1 6.0 critical low RESUL TS RECHE CKED. CRITI MURALI RESUL TS STANLEY D TO AND ACCUR ATELY READ BACK BY: Yessica Reid MD ON: 08/20 AT: 19:56 BY: ST Not Available [facility] [address] [place] [address], [address], 08/20/2024 21:30:30 08/21/19 25 08/20/2024 COMPL ETE BLOOD COUNT hematocrit 18.8 % 35.0-4 7.0 critical low RESUL TS RECHE CKED. CRITI MURALI LOZA TS STANLEY D TO AND ACCUR ATELY READ BACK BY: Yessica Reid MD ON: 08/20 AT: 19:56 BY: ST Not Available [facility] [address] [place] [address], [address], 08/20/2024 21:30:30 08/21/19 25 08/20/2024 COMPL ETE BLOOD COUNT MCV 80 fL 80-100 normal Not Available [facility] [address] [place] [address], [address], 08/20/2024 21:30:30 08/21/19 25 08/20/2024 COMPL ETE BLOOD COUNT MCH 28 pg 26-35 normal Not Available [facility] [address] [place] [address], [address], 08/20/2024 21:30:30 08/21/19 25 08/20/2024 COMPL ETE BLOOD COUNT MCHC 35 g/dL 32-36 normal Not Available [facility] [address] [place] [address], [address], 08/20/2024 21:30:30 08/21/19 25 08/20/2024 COMPL ETE BLOOD COUNT RDW 16.8 % 11.0-1 5.0 high Not Available [facility] [address] [place] [address], [address], 08/20/2024 21:30:30 08/21/19 25 08/20/2024 COMPL ETE BLOOD COUNT MPV 10.3 fL 6.2-10 .5 normal Not Available [facility] Laboratory [address] [place] [address], [phone], 08/20/2024 21:30:30 08/21/19 25 08/20/2024 COMPL ETE BLOOD COUNT platelet count 47 10*3/ uL 150-40 0 low Not Available [facility] [address] [place] [address], [phone], 08/20/2024 21:30:30 08/21/19 25 08/20/2024 COMPL ETE BLOOD COUNT neutrophil,a bsolute 1.6 10*3/ uL 1.6-8. 4 normal Not Available [facility] [address] [place] [address], [phone], 08/20/2024 21:30:30 08/21/19 25 08/20/2024 COMPL ETE BLOOD COUNT lymphocyte,a bsolute 0.4 10*3/ uL 0.4-5. 1 normal Not Available [facility] [address] [place] [address], [address], 08/20/2024 21:30:30 08/21/19 25 08/20/2024 COMPL ETE BLOOD COUNT monocyte,abs olute 0.2 10*3/ uL 0.0-1. 2 normal Not Available [facility] [address] [place] [address], [address], 08/20/2024 21:30:30 08/21/19 25 08/20/2024 COMPL ETE BLOOD COUNT eosinophil,a bsolute 0.0 10*3/ uL 0.0-0. 8 normal Not Available [facility] [address] [place] [address], [address], 08/20/2024 21:30:30 08/21/19 25 08/20/2024 COMPL ETE BLOOD COUNT basophil,abs olute 0.0 10*3/ uL 0.0-0. 3 normal Not Available [facility] [address] [place] [address], [address], 08/20/2024 21:30:30 08/21/19 25 08/20/2024 COMPL ETE BLOOD COUNT % neutrophils 73.0 % 42.0-7 8.0 normal Not Available [facility] [address] [place] [address], [address], 08/20/2024 21:30:30 08/21/19 25 08/20/2024 COMPL ETE BLOOD COUNT % lymphocytes 16.0 % 11.0-4 7.0 normal Not Available [facility] [address] [place] [address], [address], 08/20/2024 21:30:30 08/21/19 25 08/20/2024 COMPL ETE BLOOD COUNT % monocytes 11.0 % 0.0-11 .0 normal Not Available [facility] [address] [place] [address], [address], 08/20/2024 21:30:30 08/21/19 25 08/20/2024 COMPL ETE BLOOD COUNT % eosinophils 0.0 % 0.0-7. 0 normal Not Available [facility] [address] [place] [address], [address], 08/20/2024 21:30:30 08/21/19 25 08/20/2024 COMPL ETE BLOOD COUNT % basophils 0.0 % 0.0-3. 0 normal Not Available [address], [address], 08/20/2024 21:30:30 08/21/19 25 08/20/2024 COMPL ETE BLOOD COUNT nucleated red cells 0.6 % 0.0-0. 9 normal Not Available [address], [address], 08/20/2024 21:30:30 08/21/19 25 08/20/2024 COMPL ETE BLOOD COUNT nucleated RBCs, absolute 0.01 10*3/ uL not estab. normal Not Available [facility] [address] [place] [address], [address], 08/20/2024 21:30:30 08/21/19 25 08/20/2024 MANUA L DIFFE RENTI AL % band neutrophils 0.0 % 0.0-7. 0 normal Not Available [address], [address], 08/20/2024 21:30:32 08/21/19 25 08/20/2024 MANUA L DIFFE RENTI AL % atypical lymphocytes 0 % 0-1 normal Not Available [facility] [address] [place] [address], [address], 08/20/2024 21:30:32 08/21/19 25 08/20/2024 MANUA L DIFFE RENTI AL % metamyelocyt es 0 % 0-1 normal Not Available [facility] [address] [place] [address], [address], 08/20/2024 21:30:32 08/21/19 25 08/20/2024 MANUA L DIFFE RENTI AL % myelocytes 0 % 0-1 normal Not Available [facility] [address] [place] [address], [address], 08/20/2024 21:30:32 08/21/19 25 08/20/2024 MANUA L DIFFE RENTI AL % promyelocyte s 0 % 0 normal Not Available [facility] [address] [place] [address], [address], 08/20/2024 21:30:32 08/21/19 25 08/20/2024 MANUA L DIFFE RENTI AL % blast 0 % 0 normal Not Available [facility] [address] [place] [address], [address], 08/20/2024 21:30:32 08/21/19 25 08/20/2024 MANUA L DIFFE RENTI AL nucleated red cells 0 /100{ WBC} 0-1 normal Not Available [facility] [address] [place] [address], [address], 08/20/2024 21:30:32 08/21/19 25 08/20/2024 MANUA L DIFFE RENTI AL smudge cells 0 /100{ WBC} 0 normal Not Available [facility] [address] [place] [address], [address], 08/20/2024 21:30:32 08/21/19 25 08/20/2024 MANUA L DIFFE RENTI AL platelet morphology NORMAL normal Not Available [facility] [address] [place], [address], 08/20/2024 21:30:32 08/21/19 25 08/20/2024 MANUA L DIFFE RENTI AL microcytosis SLIGHT abnormal Not Available [facility] [address] [place] [address], [address], 08/20/2024 21:30:32 08/21/19 25 08/20/2024 MANUA L DIFFE RENTI AL hypochromasi a SLIGHT abnormal Not Available [facility] [address] [place] [address], [address], 08/20/2024 21:30:32 08/21/19 25 08/20/2024 MANUA L DIFFE RENTI AL polychromasi a SLIGHT abnormal Not Available [facility] [address] [place], [address], 08/20/2024 21:30:32 08/04/19 25 08/03/2024 XR, chest , 2 view [facility] [address] [place] [address] Patien t Name: HAYLEY SMALLS Patichuy t [...] Diego Longoria MD on 025 2:[address] [facility] [address], [address], 08/06/2024 14:38:44 08/04/19 25 08/03/2024 XR, ankle , 3 or more view [address] [address] Patien t Name: HAYLEY SMALLS Patien t [...] Ryan castaneda MD on 025 2:[address] [facility] [address], [address], 08/06/2024 14:38:44 Result Notes Documentation Provider Name and Address Organization Details Recorded Time Xr, Chest, 2 View : [address] [address] Patient Name: HAYLEY Quiroga SERINA Patient : [...] chest Interpreted By: Diego Longoria MD [facility] 08/06/2024 14:38:44 Xr, Ankle, 3 Or More View : [place] [id number] Patient Name: HAYLEY SMALLS Patient : 1950 [...] fracture. Interpreted By: Amando Garcia MD [facility] 08/06/2024 14:38:44 Medical Equipment None Reported. Allergies Allergen ID Allergen Name Allergen Category Reaction Reaction Severity Criticality Documentation Date Start Date Code Code System Note Provider Name and Address Organization Details Recorded Time 529748 codeine medicatio n Not available Not available Not available 02/02/20162011 2670 RxNorm Comme nt: Creat ed By: Antonieta moreno; Cremel ed Date: 2011 8:33: 42 AM; Not Available [facility] 6 05:52:00 065136 methotrex ate medicatio n other moderate Not available 08/20/2024 6851 RxNorm KEENA LI MD [address] [place], [address], [facility] 16:03:59 Medications Name Sig Start Date Stop [...] and Address Organization Details Last Updated DateTime 05/27/202 5 28911.6 7 g 23.9 kg/m2 167.64 cm 61 /min 14 /min 99 % 99 % 122/60 mm[Hg] [facility] 5 13:14:44 Date Recorded Body height Body mass index (BMI) Body weight Respiratory rate Heart rate Oxygen saturation Oxygen saturation in Arterial blood by Pulse oximetry Systolic And Diastolic Provider Name and Address Organization Details Last Updated DateTime 5 167.64 cm 23.6 kg/m2 39494.4 9 g 14 /min 87 /min 97 % 97 % 110/70 mm[Hg] [facility] 5 15:32:24 Date Recorded Body height Body mass index (BMI) Body weight Respiratory rate Heart rate Oxygen saturation Oxygen saturation in Arterial blood by Pulse oximetry Systolic And Diastolic Provider Name and Address Organization Details Last Updated DateTime 5 167.64 cm 24.4 kg/m2 30696.4 5 g 14 /min 56 /min 97 % 97 % 138/80 mm[Hg] [facility] 5 10:53:48 Social History Question Answer Notes LastModified by [employer] Details LastModified Time Tobacco Smoking Status Never Smoker [facility] 08/03/2024 13:13:20 What Was The Date Of Your Most Recent Tobacco Screening? 09/20/2024 Information not available 09/20/2024 Sex: Unknown Functional Status Question Answer Note LastModified by [employer] Details LastModified Time Do you use any [...] SNOMED-CT Code Diagnosis ICD10 Code Diagnosis Note [id number] KEENA LI MD [facility] [address] [place] [address] 08/03/2024 12:39:40 08/07/2024 04:36:45 Seropositive rheumatoid arthritis 734864039 M05.9 + RF, + synovitis - additional labs as below- prednisone 20 mg tapering by 5 mg every 5 days till off- start methotrexa te 15 mg (6 tablets) weekly- daily 1 mg folic acid- CXR- request last XR of the hands and cervical spine Anemia 138618523 D64.89 May be due to longstandi ng inflammati on - check CBC today Long-term current use of drug therapy 101376588 Z79.899 - labs every 4 weeks x [...] contraindi cated while taking methotrexa te. Fatigue 11749596 R53.82 Fall W19.XXXA - XR of the left ankle today [id number] KEENA LI MD [facility]OL [facility] [address] [place] [address] 08/20/2024 14:01:20 08/21/2024 04:19:49 Seropositive rheumatoid arthritis 130227388 M05.9 + RF, + synovitis - prednisone [...] for further evaluation of pancytopen ia Anemia 019659423 D64.89 May be due to longstandi ng inflammati on - check CBC today Long-term current use of drug therapy 855732160 Z79.899 - stopped methotrexa te- will bring back when resolved to discuss next steps when mucositis is resolved Fatigue 57017583 R53.82 - labs today Stomatitis 70027183 K12. 30 This is a dramatic reaction [...] on vaseline to keep the lips moist [id number] KEENA LI MD [facility]OL [facility] [address] [place] [address] 09/20/2024 10:43:54 09/21/2024 04:55:53 Seropositive rheumatoid arthritis 832613721 M05.9 + RF, - CCP, + synovitis [...] agree with follow up with hematology Anemia 977430150 D64.89 May be due to longstandi ng inflammati on- continue follow up with Dr. Nixon in hematology - request records Long-term current use of drug therapy 607477734 Z79.899 - stopped methotrexa te - We reviewed side effects of prednisone including bone thinning, hyperglyce shu, weight gain, fat redistribu tion, avascular necrosis, increased infection risk, change in lipids and elevation of blood pressure. We discussed risks of adrenal insufficie ncy and the need to take dose every day - to call if unable to take orally. Fatigue 44737804 R53.82 Health Concerns Section Related Observation LastModified by Organization Detai ls LastModified Time None Recorded Concern Status LastModified by Organization Details LastModified Time None Recorded Advance Directives Directive None Recorded Payers Insurance Date Sequence Insurance Name Policy Number Policy Roland Covered Member ID Roland Member ID Guarantor Name 08/03/2024 2 [place] Hayley A Serina [id number] Hayley A Serina 08/03/2024 1 [employer] (MEDICARE REPLACEMENT/A DVANTAGE - HMO) [id number] Hayley Serina [id number] Hayley A Serina 09/17/2024 1 [employer] (MEDICARE REPLACEMENT/A DVANTAGE - PPO) Hayley A [place] [id number] Hayley A Serina OBGyn Episode No OBEpisode recorded.
--- OUTSIDE RECORDS SUMMARY | 2024-10-04 12:23 | XMS_ITS | Clinical Summary ---
Author Organization [facility] Address [address] [place] [address] Care Team Providers Care Mineral Engineer Name Role Phone Diego López APRN Primary Care Provider [phone]- [phone] Allergies Active Allergy Reactions Criticality Noted Date [...] Mixed hyperlipidemia 06/25/2024 Iron deficiency anemia 06/25/2024 Social History Tobacco Use Types Packs/Day Years [...] Description 07/08/2025 12:40 PM EDT Office Visit [facility] [address] [place] [address] Ganesh Chen MD [address] [place] [address] Health Maintenance Due Date Last Done Comments [facility]-Bone Density Scan 1950 [facility]-Depression Screening 1950 [facility]-Hepatitis C Screening 1950 [facility]-Medicare Annual Wellness (AWV) 1950 [facility]-/Child/Adol SDOH Screenings 1950 [facility]- SDOH Screenings 05/15/1968 [...] - Risk 60-74 years 1-dose series) 2011 TDR-DISFC-17 Vaccine (3 - Pfizer risk series) 01/24/2021 [...] this topic Insurance [employer] MEDICARE Care Teams Mineral Engineer Relationship Specialty Start Date End Date Diego López APRN [address] [place], [place] [id number] [place] [address] PCP - General 07/21/20
--- OUTSIDE RECORDS SUMMARY | 2024-10-04 12:23 | XMS_ITS | Continuity of Care Document ---
Author Organization [facility] RHEUMATOLOGY [facility] Address [address] [place] [address] Care Team Providers Care Insole Presser Name Role Phone BETHANY WOLFE Referring Provider BETHANY WOLFE Primary Care Provider KEENA LI Incident Response Lead [phone] Assessment No assessment recorded. Plan of Treatment Reminders Order Date Submit Date Provider Last Modified By Organization Details Last Modified Time Details Appointments RHEUM RECHECK 2024 03:45P M KEENA LI MD Not available Not available Not available Lab CBC w/ auto diff 2024 025 [facility], [address] [place] [address], [id number], 08/20/2024 21:30:30 CMP, serum or plasma 2024 025 [facility], [address] [place] [address], [address], 08/20/2024 19:03:00 Referral None recorded . Procedures None recorded . Surgeries None recorded . Imaging None recorded . Medication Orders predniso ne 5 mg tablet 2024 025 [facility] [place], [address], 08/20/2024 16:09:49 Valtrex 1 gram tablet 2024 025 [facility], [address] [place], [address], 09/03/2024 05:02:12 Compound Magic Mouthwas h #10 (Dipheny dramine/ Nystatin /Maalox/ Lidocain e 1:1:1:1) 2024 025 [facility], [address], [address], 08/20/2024 16:09:46 Patient TargetsNo targets recorded. Patient InstructionsNo instructions recorded. Reason for Referral None Reported. Results Created Date Observation Date Name Description Value Unit Range Abnormal Flag Note LastModifiedBy Organization Detail LastModifiedTime 08/04/1908/03/2024 COMPL ETE BLOOD COUNT white blood cells 5.1 10*3/ uL 3.8-10 .8 normal Not Available [facility] [address] [place] [address], [address], 08/03/2024 15:27:43 08/04/19 25 08/03/2024 COMPL ETE BLOOD COUNT red blood cells 3.42 10*6/ uL 3.80-5 .20 low Not Available [facility] [address] [place] [address], [address], 08/03/2024 15:27:43 08/04/19 25 08/03/2024 COMPL ETE BLOOD COUNT hemoglobin 9.3 g/dL 12.0-1 6.0 low Not Available [facility] [address] [place] [address], [address], 08/03/2024 15:27:43 08/04/19 25 08/03/2024 COMPL ETE BLOOD COUNT hematocrit 27.8 % 35.0-4 7.0 low Not Available [facility] [address] [place] [address], [address], 08/03/2024 15:27:43 08/04/19 25 08/03/2024 COMPL ETE BLOOD COUNT MCV 82 fL 80-100 normal Not Available [facility] [place], [address], 08/03/2024 15:27:43 08/04/19 25 08/03/2024 COMPL ETE BLOOD COUNT MCH 27 pg 26-35 normal Not Available [facility] [address] [place] [address], [address], 08/03/2024 15:27:43 08/04/19 25 08/03/2024 COMPL ETE BLOOD COUNT MCHC 33 g/dL 32-36 normal Not Available [facility] [address] [place] [address], [address], 08/03/2024 15:27:43 08/04/19 25 08/03/2024 COMPL ETE BLOOD COUNT RDW 17.3 % 11.0-1 5.0 high Not Available [facility] [address] [place] [address], [address], 08/03/2024 15:27:43 08/04/19 25 08/03/2024 COMPL ETE BLOOD COUNT MPV 10.6 fL 6.2-10 .5 high Not Available [facility] [address] [place] [address], [address], 08/03/2024 15:27:43 08/04/19 25 08/03/2024 COMPL ETE BLOOD COUNT platelet count 54 10*3/ uL 150-40 0 low Not Available [facility] [address] [place] [address], [address], 08/03/2024 15:27:43 08/04/19 25 08/03/2024 COMPL ETE BLOOD COUNT neutrophil,a bsolute 4.1 10*3/ uL 1.6-8. 4 normal Not Available [facility] [address] [place] [address], [address], 08/03/2024 15:27:43 08/04/19 25 08/03/2024 COMPL ETE BLOOD COUNT lymphocyte,a bsolute 0.7 10*3/ uL 0.4-5. 1 normal Not Available [facility] [address] [place] [address], [address], 08/03/2024 15:27:43 08/04/19 25 08/03/2024 COMPL ETE BLOOD COUNT monocyte,abs olute 0.2 10*3/ uL 0.0-1. 2 normal Not Available [facility] [address] [place] [address], [address], 08/03/2024 15:27:43 08/04/19 25 08/03/2024 COMPL ETE BLOOD COUNT eosinophil,a bsolute 0.1 10*3/ uL 0.0-0. 8 normal Not Available [facility] [address] [place] [address], [address], 08/03/2024 15:27:43 08/04/19 25 08/03/2024 COMPL ETE BLOOD COUNT basophil,abs olute 0.0 10*3/ uL 0.0-0. 3 normal Not Available [facility] [address] [place] [address], [address], 08/03/2024 15:27:43 08/04/19 25 08/03/2024 COMPL ETE BLOOD COUNT % neutrophils 81.1 % 42.0-7 8.0 high Not Available [facility] [address] [place] [address], [address], 08/03/2024 15:27:43 08/04/19 25 08/03/2024 COMPL ETE BLOOD COUNT % lymphocytes 13.7 % 11.0-4 7.0 normal Not Available [facility] [address] [place] [address], [address], 08/03/2024 15:27:43 08/04/19 25 08/03/2024 COMPL ETE BLOOD COUNT % monocytes 3.2 % 0.0-11 .0 normal Not Available [facility] [address] [place] [address], [address], 08/03/2024 15:27:43 08/04/19 25 08/03/2024 COMPL ETE BLOOD COUNT % eosinophils 1.5 % 0.0-7. 0 normal Not Available [facility] [address] [place] [address], [address], 08/03/2024 15:27:43 08/04/19 25 08/03/2024 COMPL ETE BLOOD COUNT % basophils 0.5 % 0.0-3. 0 normal Not Available [facility] [address] [place] [address], [address], 08/03/2024 15:27:43 08/04/19 25 08/03/2024 COMPL ETE BLOOD COUNT nucleated red cells 0.1 % 0.0-0. 9 normal Not Available [facility] [address] [place] [address], [address], 08/03/2024 15:27:43 08/04/19 25 08/03/2024 COMPL ETE BLOOD COUNT nucleated RBCs, absolute 0.00 10*3/ uL not estab. normal Not Available [facility] [address] [place] [address], [address], 08/03/2024 15:27:43 08/04/19 25 08/03/2024 HEPAT ITIS PANEL hepatitis A Ab, IgM NONREA CTIVE nonrea ctive normal Not Available [facility] [address] [place] [address], [address], 08/03/2024 15:28:56 08/04/19 25 08/03/2024 HEPAT ITIS PANEL hepatitis B surface Ag NONREA CTIVE nonrea ctive normal Not Available [facility] [address] [place] [address], [address], 08/03/2024 15:28:56 08/04/19 25 08/03/2024 HEPAT ITIS PANEL hepatitis B core Ab,IgM NONREA CTIVE nonrea ctive normal Not Available [facility] [address] [place] [address], [address], 08/03/2024 15:28:56 08/04/19 25 08/03/2024 HEPAT ITIS PANEL hcab, reflex viral RNA qt NONREA CTIVE nonrea ctive normal Antib odies to HCV were not detec shayla; does not exclu de the possi bilit y of expos ure to HCV. Not Available [facility] [address] [place] [address], [address], 08/03/2024 15:28:56 08/04/19 25 08/03/2024 TSH WITH REFLE X FT4 TSH with reflex FT4 1.470 u[IU] /mL 0.270- 4.200 normal Not Available [facility] [address] [place] [address], [address], 08/03/2024 15:29:12 08/04/19 25 08/03/2024 FOLIC ACID folic acid 4.8 NG/mL 4.6-34 .8 normal Not Available [facility] [address] [place] [address], [address], 08/03/2024 15:34:18 08/04/19 25 08/03/2024 VITAM IN D 25-OH vitamin D 25-oh, total 15 NG/mL >=30 NG/mL abnormal Not Available [facility] [address] [place] [address], [address], 08/03/2024 15:34:19 08/04/19 25 08/03/2024 VITAM IN B12 vitamin B12 252 pg/mL 232-12 45 normal Not Available [facility] [address] [place] [address], [address], 08/03/2024 15:34:21 08/04/19 25 08/03/2024 C REACT ANGELA PROTE IN C reactive protein 6.15 mg/dL 0.00-0 .49 high Not Available [facility] [address] [place] [address], [address], 08/03/2024 15:48:02 08/04/19 25 08/03/2024 CREAT INE KINAS E creatine kinase 36 U/L 0-169 normal Not Available [facility] [address] [place] [address], [address], 08/03/2024 15:48:03 08/04/19 25 08/03/2024 COMP. METAB OLIC PANEL glucose 91 mg/dL 74-100 normal Not Available [facility] [address] [place] [address], [address], 08/03/2024 15:48:05 08/04/19 25 08/03/2024 COMP. METAB OLIC PANEL blood urea nitrogen 21 mg/dL 6-20 high Not Available [facility] [address] [place] [address], [address], 08/03/2024 15:48:05 08/04/19 25 08/03/2024 COMP. METAB OLIC PANEL creatinine 1.40 mg/dL 0.50-0 .95 high Not Available [facility] [address] [place] [address], [address], 08/03/2024 15:48:05 08/04/19 25 08/03/2024 COMP. METAB OLIC PANEL BUN/creatini ne ratio 15 (calc ) 10-20 normal Not Available [facility] [address] [place] [address], [address], 08/03/2024 15:48:05 08/04/19 25 08/03/2024 COMP. METAB OLIC PANEL sodium 134 mmol/ L 136-14 5 low Not Available [facility] [address] [place] [address], [address], 08/03/2024 15:48:05 08/04/19 25 08/03/2024 COMP. METAB OLIC PANEL potassium 3.3 mmol/ L 3.4-5. 0 low Not Available [facility] [address] [place] [address], [address], 08/03/2024 15:48:05 08/04/19 25 08/03/2024 COMP. METAB OLIC PANEL chloride 103 mmol/ L 98-107 normal Not Available [facility] [address] [place] [address], [address], 08/03/2024 15:48:05 08/04/19 25 08/03/2024 COMP. METAB OLIC PANEL carbon dioxide 20 mmol/ L 22-31 low Not Available [facility] [address] [place] [address], [address], 08/03/2024 15:48:05 08/04/19 25 08/03/2024 COMP. METAB OLIC PANEL anion gap 11 (calc ) 7-25 normal Not Available [facility] [address] [place] [address], [address], 08/03/2024 15:48:05 08/04/19 25 08/03/2024 COMP. METAB OLIC PANEL calcium 8.4 mg/dL 8.6-10 .2 low Not Available [facility] [address] [place] [address], [address], 08/03/2024 15:48:05 08/04/19 25 08/03/2024 COMP. METAB OLIC PANEL total protein 6.9 g/dL 6.4-8. 3 normal Not Available [facility] [address] [place] [address], [address], 08/03/2024 15:48:05 08/04/19 25 08/03/2024 COMP. METAB OLIC PANEL albumin 3.4 g/dL 3.5-5. 2 low Not Available [facility] [address] [place] [address], [address], 08/03/2024 15:48:05 08/04/19 25 08/03/2024 COMP. METAB OLIC PANEL globulin 3.5 1.5-4. 5 normal Not Available [facility] [address] [place] [address], [address], 08/03/2024 15:48:05 08/04/19 25 08/03/2024 COMP. METAB OLIC PANEL albumin/glob ulin ratio 1.0 (calc ) 1.1-2. 5 low Not Available [facility] [address] [place] [address], [address], 08/03/2024 15:48:05 08/04/19 25 08/03/2024 COMP. METAB OLIC PANEL bilirubin, total 0.5 mg/dL 0.1-1. 2 normal Not Available [facility] [address] [place] [address], [address], 08/03/2024 15:48:05 08/04/19 25 08/03/2024 COMP. METAB OLIC PANEL alkaline phosphatase 69 U/L 30-121 normal Not Available [facility] [address] [place] [address], [address], 08/03/2024 15:48:05 08/04/19 25 08/03/2024 COMP. METAB OLIC PANEL AST 18 U/L 0-32 normal Not Available [facility] [address] [place] [address], [address], 08/03/2024 15:48:05 08/04/19 25 08/03/2024 COMP. METAB OLIC PANEL ALT 9 U/L 0-33 normal Not Available [facility] [address] [place] [address], [address], 08/03/2024 15:48:05 08/04/19 25 08/03/2024 COMP. METAB OLIC PANEL GFR 40 >= 60 abnormal NOT E New calcu latio n for GFR (CKD- EPI 2020) is formu lated witho ut race adjus tment facto rs at the recom menda tion of the [employer] of Nephr ology . This calcu latio n has not been valid ated in pregn ant women . For pedia jose hughese nts refer to https ://sunni dolan.o rg/pr ofess ional s/KDO QI/gf r_cal culat orPed Not Available [facility] [address] [place] [address], [address], 08/03/2024 15:48:05 08/04/19 25 08/03/2024 ESR, AUTOM ATED ESR, automated 14 mm 0-29 normal Not Available [facility] [address] [place] [address], [address], 08/03/2024 18:34:41 08/04/19 25 08/05/2024 QUANT IFERO N TB GOLD qtb gold NEGATI VE negati ve normal Negat angela test resul t. M. tuber culos is compl ex infec tion unlik grady. Not Available [facility] [address] [place] [address], [address], 08/05/2024 15:38:07 08/04/19 25 08/05/2024 QUANT IFERO N TB GOLD nil 0.04 IU/mL normal Not Available [facility] [address] [place] [address], [address], 08/05/2024 15:38:07 08/04/19 25 08/05/2024 QUANT IFERO N TB GOLD mitogen nil 6.53 IU/mL normal Not Available [facility] [place], [address], 08/05/2024 15:38:07 08/04/19 25 08/05/2024 QUANT IFERO N TB GOLD TB1 nil <0.00 IU/mL normal Not Available [facility] [place], [address], 08/05/2024 15:38:07 08/04/19 25 08/05/2024 QUANT IFERO [...] e refer to https ://ed ucati on.qu estAmiare/f aq/FA Q204 (This link is being provi ded for infor iwona gordon/ educjustin young l purpo ses only. ) Not Available [facility] [address] [place], [address], 08/05/2024 15:38:07 08/04/19 25 08/05/2024 ANTI- CCP anti-ccp <16 units normal Refer ence Range Negat angela: <20 Weak Posit angela: 20-39 Moder ate Posit angela: 40-59 Stron g Posit angela: >59 Not Available [facility] [address] [place], [address], 08/05/2024 16:39:40 08/21/19 25 08/20/2024 COMP. METAB OLIC PANEL glucose 119 mg/dL 74-100 high Not Available [facility] [address] [place], [address], 08/20/2024 19:02:59 08/21/19 25 08/20/2024 COMP. METAB OLIC PANEL blood urea nitrogen 16 mg/dL 6-20 normal Not Available [facility] [address] [place] [address], [address], 08/20/2024 19:02:59 08/21/19 25 08/20/2024 COMP. METAB OLIC PANEL creatinine 1.22 mg/dL 0.50-0 .95 high Not Available [facility] [address] [place] [address], [address], 08/20/2024 19:02:59 08/21/19 25 08/20/2024 COMP. METAB OLIC PANEL BUN/creatini ne ratio 13 (calc ) 10-20 normal Not Available [facility] [address] [place] [address], [address], 08/20/2024 19:02:59 08/21/19 25 08/20/2024 COMP. METAB OLIC PANEL sodium 132 mmol/ L 136-14 5 low Not Available [facility] [address] [place] [address], [address], 08/20/2024 19:02:59 08/21/19 25 08/20/2024 COMP. METAB OLIC PANEL potassium 3.1 mmol/ L 3.4-5. 0 low Not Available [facility] [address] [place] [address], [address], 08/20/2024 19:02:59 08/21/19 25 08/20/2024 COMP. METAB OLIC PANEL chloride 101 mmol/ L 98-107 normal Not Available [facility] [address] [place] [address], [address], 08/20/2024 19:02:59 08/21/19 25 08/20/2024 COMP. METAB OLIC PANEL carbon dioxide 20 mmol/ L 22-31 low Not Available [facility] [address] [place] [address], [address], 08/20/2024 19:02:59 08/21/19 25 08/20/2024 COMP. METAB OLIC PANEL anion gap 11 (calc ) 7-25 normal Not Available [facility] [address] [place] [address], [address], 08/20/2024 19:02:59 08/21/19 25 08/20/2024 COMP. METAB OLIC PANEL calcium 8.2 mg/dL 8.6-10 .2 low Not Available [facility] [address] [place] [address], [address], 08/20/2024 19:02:59 08/21/19 25 08/20/2024 COMP. METAB OLIC PANEL total protein 6.3 g/dL 6.4-8. 3 low Not Available [facility] [address] [place] [address], [address], 08/20/2024 19:02:59 08/21/19 25 08/20/2024 COMP. METAB OLIC PANEL albumin 3.3 g/dL 3.5-5. 2 low Not Available [facility] [address] [place] [address], [address], 08/20/2024 19:02:59 08/21/19 25 08/20/2024 COMP. METAB OLIC PANEL globulin 3.0 1.5-4. 5 normal Not Available [facility] [address] [place] [address], [address], 08/20/2024 19:02:59 08/21/19 25 08/20/2024 COMP. METAB OLIC PANEL albumin/glob ulin ratio 1.1 (calc ) 1.1-2. 5 normal Not Available [facility] [address] [place] [address], [address], 08/20/2024 19:02:59 08/21/19 25 08/20/2024 COMP. METAB OLIC PANEL bilirubin, total 0.6 mg/dL 0.1-1. 2 normal Not Available [facility] [address] [place] [address], [address], 08/20/2024 19:02:59 08/21/19 25 08/20/2024 COMP. METAB OLIC PANEL alkaline phosphatase 69 U/L 30-121 normal Not Available [facility] [address] [place], [address], 08/20/2024 19:02:59 08/21/19 25 08/20/2024 COMP. METAB OLIC PANEL AST 14 U/L 0-32 normal Not Available [facility] [address] [place], [address], 08/20/2024 19:02:59 08/21/19 25 08/20/2024 COMP. METAB OLIC PANEL ALT 23 U/L 0-33 normal Not Available [facility] [address] [place], [address], 08/20/2024 19:02:59 08/21/19 25 08/20/2024 COMP. METAB OLIC PANEL eGFR 47 >= 60 abnormal NOT E New calcu latio n for GFR (CKD- EPI 2020) is formu lated witho ut race adjus tment facto rs at the recom menda tion of the [employer]rin[employer] Nephr ology . This calcu latio n has not been valid ated in pregn ant women . For pedia tric patie nts refer to https ://sunni dolan.o rg/ottoniel campbell s/KDO QI/gf r_cal culat orPed Not Available [facility] [address] [place], [address], 08/20/2024 19:02:59 08/21/19 25 08/20/2024 C REACT ANGELA PROTE IN C reactive protein 10.31 mg/dL 0.00-0 .49 high Not Available [facility] [address] [place], [address], 08/20/2024 19:03:01 08/21/19 25 08/20/2024 ESR, AUTOM ATED ESR, automated 13 mm 0-29 normal Not Available [facility] [address] [place] [address], [address], 08/20/2024 20:37:18 08/21/19 25 08/20/2024 COMPL ETE BLOOD COUNT white blood cells 2.2 10*3/ uL 3.8-10 .8 low Not Available [facility] [address] [place] [address], [address], 08/20/2024 21:30:30 08/21/19 25 08/20/2024 COMPL ETE BLOOD COUNT red blood cells 2.35 10*6/ uL 3.80-5 .20 low Not Available [facility] [address] [place] [address], [address], 08/20/2024 21:30:30 08/21/19 25 08/20/2024 COMPL ETE BLOOD COUNT hemoglobin 6.5 g/dL 12.0-1 6.0 critical low RESUL TS RECHE CKED. CRITI MURALI RESUL TS STANLEY D TO AND ACCUR ATELY READ BACK BY: Yessica Reid MD ON: 08/20 AT: 19:56 BY: ST Not Available [facility] [address] [place] [address], [address], 08/20/2024 21:30:30 08/21/19 25 08/20/2024 COMPL ETE BLOOD COUNT hematocrit 18.8 % 35.0-4 7.0 critical low RESUL TS RECHE CKED. CRITI MURALI RESUL TS STANLEY D TO AND ACCUR ATELY READ BACK BY: Yessica Reid MD ON: 08/20 AT: 19:56 BY: ST Not Available [facility] [address] [place] [address], [address], 08/20/2024 21:30:30 08/21/19 25 08/20/2024 COMPL ETE BLOOD COUNT MCV 80 fL 80-100 normal Not Available [facility] [address] [place] [address], [address], 08/20/2024 21:30:30 08/21/19 25 08/20/2024 COMPL ETE BLOOD COUNT MCH 28 pg 26-35 normal Not Available [facility] [address] [place] [address], [address], 08/20/2024 21:30:30 08/21/19 25 08/20/2024 COMPL ETE BLOOD COUNT MCHC 35 g/dL 32-36 normal Not Available [facility] [address] [place] [address], [address], 08/20/2024 21:30:30 08/21/19 25 08/20/2024 COMPL ETE BLOOD COUNT RDW 16.8 % 11.0-1 5.0 high Not Available [facility] [address] [place] [address], [address], 08/20/2024 21:30:30 08/21/19 25 08/20/2024 COMPL ETE BLOOD COUNT MPV 10.3 fL 6.2-10 .5 normal Not Available [facility] [address] [place] [address], [address], 08/20/2024 21:30:30 08/21/19 25 08/20/2024 COMPL ETE BLOOD COUNT platelet count 47 10*3/ uL 150-40 0 low Not Available [facility] [address] [place] [address], [address], 08/20/2024 21:30:30 08/21/19 25 08/20/2024 COMPL ETE BLOOD COUNT neutrophil,a bsolute 1.6 10*3/ uL 1.6-8. 4 normal Not Available [facility] [address] [place] [address], [address], 08/20/2024 21:30:30 08/21/19 25 08/20/2024 COMPL ETE BLOOD COUNT lymphocyte,a bsolute 0.4 10*3/ uL 0.4-5. 1 normal Not Available [facility] [address] [place] [address], [address], 08/20/2024 21:30:30 08/21/19 25 08/20/2024 COMPL ETE BLOOD COUNT monocyte,abs olute 0.2 10*3/ uL 0.0-1. 2 normal Not Available [facility] [address] [place] [address], [address], 08/20/2024 21:30:30 08/21/19 25 08/20/2024 COMPL ETE BLOOD COUNT eosinophil,a bsolute 0.0 10*3/ uL 0.0-0. 8 normal Not Available [facility] [address] [place] [address], [address], 08/20/2024 21:30:30 08/21/19 25 08/20/2024 COMPL ETE BLOOD COUNT basophil,abs olute 0.0 10*3/ uL 0.0-0. 3 normal Not Available [facility] [address] [place] [address], [address], 08/20/2024 21:30:30 08/21/19 25 08/20/2024 COMPL ETE BLOOD COUNT % neutrophils 73.0 % 42.0-7 8.0 normal Not Available [facility] [address] [place] [address], [address], 08/20/2024 21:30:30 08/21/19 25 08/20/2024 COMPL ETE BLOOD COUNT % lymphocytes 16.0 % 11.0-4 7.0 normal Not Available [facility] [address] [place] [address], [address], 08/20/2024 21:30:30 08/21/19 25 08/20/2024 COMPL ETE BLOOD COUNT % monocytes 11.0 % 0.0-11 .0 normal Not Available [facility] [address] [place] [address], [address], 08/20/2024 21:30:30 08/21/19 25 08/20/2024 COMPL ETE BLOOD COUNT % eosinophils 0.0 % 0.0-7. 0 normal Not Available [facility] [address] [place] [address], [address], 08/20/2024 21:30:30 08/21/19 25 08/20/2024 COMPL ETE BLOOD COUNT % basophils 0.0 % 0.0-3. 0 normal Not Available [facility] [address] [place] [address], [address], 08/20/2024 21:30:30 08/21/19 25 08/20/2024 COMPL ETE BLOOD COUNT nucleated red cells 0.6 % 0.0-0. 9 normal Not Available [facility] [address] [place] [address], [address], 08/20/2024 21:30:30 08/21/19 25 08/20/2024 COMPL ETE BLOOD COUNT nucleated RBCs, absolute 0.01 10*3/ uL not estab. normal Not Available [facility] [address] [place] [address], [address], 08/20/2024 21:30:30 08/21/19 25 08/20/2024 MANUA L DIFFE RENTI AL % band neutrophils 0.0 % 0.0-7. 0 normal Not Available [facility] [address] [place] [address], [address], 08/20/2024 21:30:32 08/21/19 25 08/20/2024 MANUA L DIFFE RENTI AL % atypical lymphocytes 0 % 0-1 normal Not Available [facility] [address] [place] [address], [address], 08/20/2024 21:30:32 08/21/19 25 08/20/2024 MANUA L DIFFE RENTI AL % metamyelocyt es 0 % 0-1 normal Not Available [facility] [address] [place] [address], [phone], 08/20/2024 21:30:32 08/21/19 25 08/20/2024 MANUA L DIFFE RENTI AL % myelocytes 0 % 0-1 normal Not Available [facility] [address] [place] [address], [phone], 08/20/2024 21:30:32 08/21/19 25 08/20/2024 MANUA L DIFFE RENTI AL % promyelocyte s 0 % 0 normal Not Available [facility] [address] [place] [address], [phone], 08/20/2024 21:30:32 08/21/19 25 08/20/2024 MANUA L DIFFE RENTI AL % blast 0 % 0 normal Not Available [facility] [address] [place] [address], [phone], 08/20/2024 21:30:32 08/21/19 25 08/20/2024 MANUA L DIFFE RENTI AL nucleated red cells 0 /100{ WBC} 0-1 normal Not Available [facility] [address] [place] [address], [phone], 08/20/2024 21:30:32 08/21/19 25 08/20/2024 MANUA L DIFFE RENTI AL smudge cells 0 /100{ WBC} 0 normal Not Available [facility] [address] [place] [address], [phone], 08/20/2024 21:30:32 08/21/19 25 08/20/2024 MANUA L DIFFE RENTI AL platelet morphology NORMAL normal Not Available [facility] [address] [place] [address], [phone], 08/20/2024 21:30:32 08/21/19 25 08/20/2024 MANUA L DIFFE RENTI AL microcytosis SLIGHT abnormal Not Available [facility] [address] [place], [phone], 08/20/2024 21:30:32 08/21/19 25 08/20/2024 MANUA L DIFFE RENTI AL hypochromasi a SLIGHT abnormal Not Available [facility] [address] [place] [address], [phone], 08/20/2024 21:30:32 08/21/19 25 08/20/2024 MANUA L DIFFE RENTI AL polychromasi a SLIGHT abnormal Not Available [facility] [address] [place], [address], 08/20/2024 21:30:32 08/04/19 25 08/03/2024 XR, chest , [address] [address] [phone] Patien t Name: HAYLEY VANGD Patien t : [birth year] [address] [facility] er: KEENA [place] EXAM DATE: 2024 [...] Longoria MD on 025 2:21 PM [facility] [address] [place] [address], [phone], 08/06/2024 14:38:44 08/04/19 25 08/03/2024 XR, ankle , 3 or more view [address] [address] Patichuy murray Name: HAYLEY murray : [birth year] Patichuy t Orderi ng Provid er: KEENA SUMANTila LUGO EXAM DATE: 2024 EXAM: XR LT [...] Ryan castaneda MD on 025 2:[address] Radiology [facility] [address] [place] [address], [phone], 08/06/2024 14:38:44 Result Notes None recorded. Medical Equipment None Reported. Allergies Allergen ID Allergen Name Allergen Category Reaction Reaction Severity Criticality Documentation Date Start Date Code Code System Note Provider Name and Address Organization Details Recorded Time 158946 codeine medicatio n Not available Not available Not available 02/02/20162011 2670 RxNorm Comme nt: Creat ed By: Antonieta moreno; Fredrick ed Date: 2011 8:33: 42 AM; Not Available [facility] 6 05:52:00 399092 methotrex ate medicatio n other moderate Not available 08/20/2024 6851 RxNorm KEENA LI MD [address] [place] [address], [phone], [facility] 16:03:59 Medications Name Sig Start Date [...] Last Updated DateTime 167.64 cm 23.6 kg/m2 51056.4 9 g 14 /min 87 /min 97 % 97 % 110/70 mm[Hg] Ramona York [facility] 15:32:24 Social History Question Answer Notes LastModified by Organizat ion Details LastModified Time Tobacco Smoking Status Never Smoker Ramonagladys Townsend [facility] 08/03/2024 13:13:20 What Was The Date [...] SNOMED-CT Code Diagnosis ICD10 Code Diagnosis Note [id number] [facility]EE[facility] LI [facility] [address] [place] [address] 08/03/2024 12:39:40 08/07/2024 04:36:45 Seropositive rheumatoid arthritis 138543148 M05.9 + RF, + synovitis - additional labs as below- prednisone 20 mg tapering by 5 mg every 5 days till off- start methotrexa te 15 mg (6 tablets) weekly- daily 1 mg folic acid- CXR- request last XR of the hands and cervical spine Anemia 615613393 D64.89 May be due to longstandi ng inflammati on - check CBC today Long-term current use of drug therapy 924925821 Z79.899 - labs every 4 weeks x [...] contraindi cated while taking methotrexa te. Fatigue 12206315 R53.82 Fall W19.XXXA - XR of the left ankle today [id number] KEENA LI MD RHEUMATOL [facility] [address] [place] [address] 08/20/2024 14:01:20 08/21/2024 04:19:49 Seropositive rheumatoid arthritis 459155271 M05.9 + RF, + synovitis - prednisone [...] for further evaluation of pancytopen ia Anemia 020002985 D64.89 May be due to longstandi ng inflammati on - check CBC today Long-term current use of drug therapy 973690597 Z79.899 - stopped methotrexa te- will bring back when resolved to discuss next steps when mucositis is resolved Fatigue 20671934 R53.82 - labs today Stomatitis 45536091 K12. 30 This is a dramatic reaction to methotrexa te. She has had 2 doses and her last dose was 6/. Symptoms started 6/5, so clearly I think this is the [...] (MEDICARE REPLACEMENT/A DVANTAGE - PPO) Hayley A Rochelle [id number] Hayley A Serina OBGyn Episode No OBEpisode recorded.
== END 2024-10-01 23:59 ==
LOC: LAB.DROPOF 10-04 12:19
PROVIDERS: PCP Internal Medicine; Visit Provider Internal Medicine
DX: E53.8 Deficiency of other specified B group vitamins (principal)
CPT/HCPCS: 82607

== ENCOUNTER 2024-10-26 10:52 | Outpatient (CLI) | payer MEDICARE, SELFPAY ==
--- OUTSIDE RECORDS SUMMARY | 2024-10-26 10:54 | XMS_ITS | Clinical Summary ---
Author Organization [facility] Address [address] [place] [address] Care Team Providers Care Automation Engineering Manager Name Role Phone Diego López APRN Primary Care Provider [phone]- [phone] Allergies Active Allergy Reactions Criticality Noted Date [...] Description 07/08/2025 12:40 PM EDT Office Visit [facility] [address] [place] [address] Ganesh Chen MD [address] [place] [address] Health Maintenance Due Date Last [...] - Risk 60-74 years 1-dose series) 2011 [id number] Vaccine (3 - Pfizer risk series) 01/24/2021 [...] this topic Insurance [employer] Care Teams Automation Engineering Manager Relationship Specialty Start Date End Date Diego López APRN [address] [place], [place] [id number] [place] [address] PCP - General 07/21/20
[2024-10-26 11:29] LABS: Hematocrit 35.9 % (37.0-47.0); Hemoglobin 11.5 g/dL (12.2-16.2); Immature Granulocytes % 0.6 %; Mean Corpuscular HGB Conc 32.0 g/dL (31.8-35.4); Mean Corpuscular Hemoglobin 27.9 pg (27.0-31.2); Mean Corpuscular Volume 87.1 fl (81-99); Nucleated Red Blood Cells % 0 %; Platelet Count 136 K/mm3 (142-424); Red Blood Count 4.12 M/mm3 (4.20-5.40); Red Cell Distribution Width-SD 46.8 fL; White Blood Count 6.3 K/mm3 (4.8-10.8)
[2024-10-26 12:05] LABS: Alanine Aminotransferase 13 U/L (12-78); Albumin Level 3.8 g/dl (3.5-5.0); Albumin/Globulin Ratio 1.3 (1.1-1.8); Alkaline Phosphatase 92 U/L (38-126); Anion Gap 10.9 mEq/L (5-15); Aspartate Amino Transferase 23 U/L (14-36); Bilirubin,Total 0.3 mg/dl (0.2-1.3); Blood Urea Nitrogen 23 mg/dl (7-17); Calcium 9.0 mg/dl (8.4-10.2); Carbon Dioxide 28 mmol/L (22.0-30.0); Chloride 103 mmol/L (98-107); Creatinine,Serum 1.00 mg/dl (0.52-1.04); Estimated Glomerular Filt Rate 54 ml/min (>60); GFR (African American) 66 ML/MIN (>60); Globulin 3.0 g/dL (1.3-3.2); Glucose 84 mg/dl (74-100); Potassium 4.9 mmoL/L (3.5-5.1); Sodium 137 mmol/L (136-145); Total Protein,Serum 6.8 g/dl (6.3-8.2)
== END 2024-10-26 23:59 | disposition home or self-care (01) ==
LOC: LAB 10:52
PROVIDERS: PCP Internal Medicine; Visit Provider Internal Medicine Medical Oncology
DX: D69.6 Thrombocytopenia, unspecified (principal)
CPT/HCPCS: 36415; 80053; 85025